=== PATIENT | female | born 1955 | race Caucasian/White ===

== ENCOUNTER 2018-06-11 13:39 | Inpatient (IN) | payer MEDICARE, OTHER ==
[2018-06-11] MEDS ORDERED: ACETAMINOPHEN TAB 500 MG TAB PO STA (14:09)
[2018-06-11] MEDS ORDERED: IPRATROPIUM-ALBUTEROL 3 ML NEB INHALATION STA (14:10)
--- NOTE | 2018-06-11 14:13 | ED ---
General Adult HPI - General Chief complaint: Shortness of Breath Stated complaint: Sob Time Seen by Provider: 06/11/18 13:57 Source: patient, EMS, RN notes reviewed Mode of arrival: EMS Limitations: no limitations - History of Present Illness Initial comments: Patient is a pleasant 62-year-old female presenting to the emergency Department with cough and difficulty breathing. Patient states symptoms have progressed over the past couple of days. Occasional clear sputum. Patient has noticed fevers. No chest pain. Patient has been fatigued. - Related Data Home Medications Medication Instructions Recorded Confirmed Albuterol Inhaler [Ventolin Hfa 2 puff INHALATION RT-Q6H PRN 06/11/18 06/11/18 Inhaler] Doxycycline [Vibramycin] 100 mg PO BID 06/11/18 06/11/18 Fluticasone Nasal [place] [Flonase 2 spr EA NOSTRIL DAILY 06/11/18 06/11/18 Nasal [place]] Glycopyrrolate/Formoterol Fum 2 puff INHALATION RT-BID 06/11/18 06/11/18 [Bevespi Aerosphere Inhaler] HYDROcodone/APAP 10-325MG [[place] 1 tab PO BID PRN 06/11/18 06/11/18 10-325] Allergies Allergy/AdvReac Type Severity Reaction Status Date / Time diphenhydramine Allergy Unknown Verified 06/11/18 14:31 [From Benadryl] seafood Allergy Itching Uncoded 06/11/18 13:55 Review of Systems ROS Statement: Those systems with pertinent positive or pertinent negative responses have been documented in the HPI. ROS Other: All systems not noted in ROS Statement are negative. Constitutional: Reports: fever, chills Eyes: Denies: eye pain ENT: Denies: ear pain Respiratory: Reports: cough, dyspnea Cardiovascular: Denies: chest pain Endocrine: Reports: fatigue Gastrointestinal: Denies: abdominal pain Genitourinary: Denies: dysuria Musculoskeletal: Denies: back pain Skin: Denies: rash Neurological: Denies: weakness Past Medical History Past Medical History: COPD, Diabetes Mellitus, GERD/Reflux, Mitral Valve Prolapse (MVP) History of Any Multi-Drug Resistant Organisms: None Reported Past Surgical History: Section, Hysterectomy, Joint Replacement Additional Past Surgical History / Comment(s): past hx tracheostomy, 4 eye surgery for cancer from [place]. PAIN CLINIC PROCEDURES Past Anesthesia/Blood Transfusion Reactions: Previous Problems w/ Anesthesia, Postoperative Nausea & Vomiting (PONV) Additional Past Anesthesia/Blood Transfusion Reaction / Comment(s): anger issue post sedation Past Psychological History: Depression Smoking Status: Former smoker Past Alcohol Use History: None Reported Past Drug Use History: None Reported General Exam Limitations: no limitations General appearance: alert Head exam: Present: atraumatic Eye exam: Present: normal appearance, PERRL ENT exam: Present: normal oropharynx Neck exam: Present: normal inspection Respiratory exam: Present: respiratory distress, decreased breath sounds Cardiovascular Exam: Present: tachycardia GI/Abdominal exam: Present: soft. Absent: tenderness Extremities exam: Present: normal inspection. Absent: pedal edema, calf tenderness Neurological exam: Present: alert Psychiatric exam: Present: normal affect, normal mood Skin exam: Present: normal color Course Vital Signs 06/11/18 06/11/18 06/11/18 13:49 14:58 15:10 Temperature 102.1 F H Pulse Rate 126 H 116 H 114 H Respiratory 36 H 28 H Rate Blood Pressure 140/89 154/80 O2 Sat by Pulse 95 97 Oximetry 06/11/18 06/11/18 15:28 15:34 Temperature Pulse Rate 114 H 109 H Respiratory 30 H Rate Blood Pressure 122/74 O2 Sat by Pulse 96 Oximetry - Reevaluation(s) Reevaluation #1: 06/11/18 15:19 IV fluid bolus of 30 mL/kg calculated with ideal body weight at 5 foot 3 of 52.2 kg, equals 1566 mL. 06/11/18 16:07 Patient is positive for influenza. Patient also has COPD exacerbation and there is some concern for possible sepsis. This is diagnosed at 1600. Blood culture and lactic acid have been ordered. IV antibiotic's will be ordered. Fluid bolus has been ordered. 06/11/18 16:09 Symptoms have been greater than 48 hours and therefore patient is not a candidate for Tamiflu. 06/11/18 16:12 Case was discussed with Dr. De La Vega, who will admit covering for hospital call. EKG Findings - EKG Comments: EKG Findings:: Sinus tachycardia 118. NV 146. QRS 90. QT 320. QTc 440. Normal axis. Q wave in lead III. No acute ST change. Procedures - Sepsis Sepsis Focused Exam #1 Time Sepsis Criteria Met: 16:00 Sepsis Focused Exam Date: 06/11/18 Sepsis Focused Exam Time: 16:08 Sepsis Focused Exam Complete: Yes Vital Signs & RN Notes Reviewed: Yes Capillary Refill: < 2 Seconds: Fingers, Toes Peripheral Pulses: Normal: Radial (R), Radial (L) Skin Color: Normal for Patient Respiratory Exam: decreased breath sounds Cardiovascular Exam: regular rate, normal rhythm Medical Decision Making - Lab Data Result diagrams: 06/11/18 14:28 06/11/18 14:28 Lab Results 06/11/18 06/11/18 06/11/18 Range/Units 14:28 14:28 14:28 WBC 3.3 L (3.8-10.6) k/uL RBC 3.60 L (3.80-5.40) m/uL Hgb 11.0 L (11.4-16.0) gm/dL Hct 33.0 L (34.0-46.0) % MCV 91.5 (80.0-100.0) fL MCH 30.5 (25.0-35.0) pg MCHC 33.3 (31.0-37.0) g/dL RDW 14.3 (11.5-15.5) % Neutrophils % Not Reportable Lymphocytes % Not Reportable Monocytes % Not Reportable Eosinophils % Not Reportable Basophils % Not Reportable Neutrophils # Not Reportable Lymphocytes # Not Reportable Monocytes # Not Reportable Eosinophils # Not Reportable Basophils # Not Reportable PT (9.0-12.0) sec INR (<1.2) APTT (22.0-30.0) sec Sodium 132 L (137-145) mmol/L Potassium 3.7 (3.5-5.1) mmol/L Chloride 93 L (98-107) mmol/L Carbon Dioxide 27 (22-30) mmol/L Anion Gap 12 mmol/L BUN 13 (7-17) mg/dL Creatinine 0.47 L (0.52-1.04) mg/dL Est GFR (CKD-EPI)AfAm >90 (>60 ml/min/1.73 sqM) Est GFR (CKD-EPI)NonAf >90 (>60 ml/min/1.73 sqM) Glucose 122 H (74-99) mg/dL Plasma Lactic Acid Matt 7.6 H* (0.7-2.0) mmol/L Calcium 9.4 (8.4-10.2) mg/dL Total Bilirubin 0.9 (0.2-1.3) mg/dL AST 104 H (14-36) U/L ALT 32 (9-52) U/L Alkaline Phosphatase 123 (38-126) U/L Total Protein 6.5 (6.3-8.2) g/dL Albumin 3.4 L (3.5-5.0) g/dL Influenza Type A RNA (Not Detectd) Influenza Type B (PCR) (Not Detectd) 06/11/18 06/11/18 Range/Units 14:28 14:41 WBC (3.8-10.6) k/uL RBC (3.80-5.40) m/uL Hgb (11.4-16.0) gm/dL Hct (34.0-46.0) % MCV (80.0-100.0) fL MCH (25.0-35.0) pg MCHC (31.0-37.0) g/dL RDW (11.5-15.5) % Neutrophils % Lymphocytes % Monocytes % Eosinophils % Basophils % Neutrophils # Lymphocytes # Monocytes # Eosinophils # Basophils # PT 11.6 (9.0-12.0) sec INR 1.1 (<1.2) APTT 22.8 (22.0-30.0) sec Sodium (137-145) mmol/L Potassium (3.5-5.1) mmol/L Chloride (98-107) mmol/L Carbon Dioxide (22-30) mmol/L Anion Gap mmol/L BUN (7-17) mg/dL Creatinine (0.52-1.04) mg/dL Est GFR (CKD-EPI)AfAm (>60 ml/min/1.73 sqM) Est GFR (CKD-EPI)NonAf (>60 ml/min/1.73 sqM) Glucose (74-99) mg/dL Plasma Lactic Acid Matt (0.7-2.0) mmol/L Calcium (8.4-10.2) mg/dL Total Bilirubin (0.2-1.3) mg/dL AST (14-36) U/L ALT (9-52) U/L Alkaline Phosphatase (38-126) U/L Total Protein (6.3-8.2) g/dL Albumin (3.5-5.0) g/dL Influenza Type A RNA Detected H (Not Detectd) Influenza Type B (PCR) Not Detected (Not Detectd) - Radiology Data Radiology results: image reviewed (Chest x-ray shows some enlargement of the hilum that could be related to adenopathy, mass or pulmonary hypertension. Central peribronchial interstitial prominence is present but could be related to bronchitis or atypical pneumonia) Critical Care Time Critical Care Time: Yes Total Critical Care Time: 33 Disposition Clinical Impression: Acute exacerbation of chronic obstructive airways disease, Influenza, Sepsis Disposition: ADMITTED IP TO THIS HOSP Is patient prescribed a controlled substance at d/c from ED?: No Referrals: None,Stated [Primary Care Provider] - 1-2 days Decision Time: 16:08
[2018-06-11] MEDS ORDERED: SODIUM CHLORIDE 0.9% 500 ML 500 ML IV SCH (14:15)
[2018-06-11 15:03] LABS: ALT 32 U/L (9-52); AST 104 U/L (14-36); Albumin 3.4 g/dL (3.5-5.0); Alkaline Phosphatase 123 U/L (38-126); Anion Gap 12 mmol/L; Blood Urea Nitrogen 13 mg/dL (7-17); Calcium 9.4 mg/dL (8.4-10.2); Carbon Dioxide 27 mmol/L (22-30); Chloride 93 mmol/L (98-107); Glucose 122 mg/dL (74-99); Potassium 3.7 mmol/L (3.5-5.1); Sodium 132 mmol/L (137-145); Total Bilirubin 0.9 mg/dL (0.2-1.3); Total Protein 6.5 g/dL (6.3-8.2)
[2018-06-11 15:05] LABS: INR 1.1 (<1.2); Partial Thromboplastin Time 22.8 sec (22.0-30.0); Prothrombin Time 11.6 sec (9.0-12.0)
[2018-06-11 15:14] LABS: MCH 30.5 pg (25.0-35.0); MCHC 33.3 g/dL (31.0-37.0); MCV 91.5 fL (80.0-100.0); Mean Platelet Volume 8.5; RDW 14.3 % (11.5-15.5)
[2018-06-11] MEDS ORDERED: SODIUM CHLORIDE 0.9% 500 ML 500 ML IV STA (15:19)
[2018-06-11] MEDS ORDERED: SODIUM CHLORIDE 0.9% 1,000 ML IV STA (15:19)
--- NOTE | 2018-06-11 15:45 | XR ---
EXAMINATION TYPE: XR chest 2V DATE OF EXAM: 06/11/2018 COMPARISON: NONE HISTORY: Shortness of breath and diarrhea. TECHNIQUE: Frontal and lateral views of the chest are obtained. FINDINGS: There is no focal air space opacity, pleural effusion, or pneumothorax seen. There is bila teral enlargement of the [place]. Cardiomediastinal silhouette is also enlarged. Central interstitial pr ominence is noted. The osseous structures are intact. Cholecystectomy clips are noted. IMPRESSION: 1. Enlargement of the [place] that could relate to adenopathy, mass or pulmonary arterial as enlargement suggesting pulmonary hypertension. 2. No focal consolidation however Central peribronchial interstitial prominence is seen and could rel ate to bronchitis or atypical pneumonitis.
[2018-06-11] MEDS ORDERED: IPRATROPIUM-ALBUTEROL 3 ML NEB INHALATION PRN (16:09)
[2018-06-11] MEDS ORDERED: methylPREDNISolone SOD SUCCI 125 MG/2 ML VIAL IV STA (16:09)
[2018-06-11] MEDS ORDERED: cefTRIAXone IN SWFI 1,000 MG/10 ML SYRINGE IVP STA (16:13)
[2018-06-11 16:42] LABS: Eosinophils # (M) 0.03 k/uL (0-0.7)
[2018-06-11 16:43] LABS: Poikilocytosis (M) Present; Polychromasia Present
[2018-06-11 16:44] LABS: Platelet Count 27 k/uL (150-450)
[2018-06-11] MEDS: SODIUM CHLORIDE 0.9% 1,000 ML IV SCH (16:51)
[2018-06-11] MEDS ORDERED: NICOTINE 21MG/24HR PATCH TRANSDERM STA (17:54)
--- NOTE | 2018-06-11 17:54 | P.HPIM ---
History of Present Illness H&P Date: 06/11/18 Chief Complaint: Shortness of breath 62-year-old female with history of COPD not on home oxygen. Patient presented to the hospital due to progressive worsening of shortness of breath. She reports the symptoms started 3 weeks ago some coughing shortness of breath she saw her PCP 5 days ago for which she prescribed doxycycline. He gave her diagnosis of walking pneumonia. However over the past 5 days patient has been progressively getting worse with her shortness of breath started developing runny nose sore throat muscle aches and having fevers and chills over the wee kend she was not getting better. She was doing Mucinex to know much improvement. She doesn't use any home oxygen she has inhalers at home. She denies any history of intubation. She denies any frequent ER visits. She admits to continued smoking however she cut back over the past 3 weeks since she started coughing. Her cough has been getting worse over the past few days with productive of yellow sputum. She denies any recent traveling. Denies any diagnoses of cancer or any clots in the past. In the ED she was found to be tachycardic to Acutely hypoxic requiring high flow oxygen 15 L Ventimask, lactic acid was elevated at 7.6, she also met sepsis criteria due to tachycardia and low white count, she tested positive for the flu. Patient also reporting diarrhea 4-6 times over the past 3 weeks however today she had only one bout of diarrhea denies any nausea vomiting or abdominal pain. 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 At baseline patient uses a walker and sometimes a cane for ambulation. Review of Systems Pertinent positives as noted in HPI. All other systems were reviewed and are negative Past Medical History Past Medical History: COPD, Diabetes Mellitus, GERD/Reflux, Mitral Valve Prolapse (MVP) History of Any Multi-Drug Resistant Organisms: None Reported Past Surgical History: Section, Hysterectomy, Joint Replacement Additional Past Surgical History / Comment(s): past hx tracheostomy, 4 eye surgery for cancer from [place]. PAIN CLINIC PROCEDURES Past Anesthesia/Blood Transfusion Reactions: Previous Problems w/ Anesthesia, Postoperative Nausea & Vomiting (PONV) Additional Past Anesthesia/Blood Transfusion Reaction / Comment(s): anger issue post sedation Past Psychological History: Depression Smoking Status: Former smoker Past Alcohol Use History: None Reported Past Drug Use History: None Reported Medications and Allergies Home Medications Medication Instructions Recorded Confirmed Type Albuterol Inhaler [Ventolin Hfa 2 puff INHALATION RT-Q6H PRN 06/11/18 06/11/18 History Inhaler] Doxycycline [Vibramycin] 100 mg PO BID 06/11/18 06/11/18 History Fluticasone Nasal [place] [Flonase 2 spr EA NOSTRIL DAILY 06/11/18 06/11/18 History Nasal [place]] Glycopyrrolate/Formoterol Fum 2 puff INHALATION RT-BID 06/11/18 06/11/18 History [Bevespi Aerosphere Inhaler] HYDROcodone/APAP 10-325MG [[place] 1 tab PO BID PRN 06/11/18 06/11/18 History 10-325] Allergies Allergy/AdvReac Type Severity Reaction Status Date / Time diphenhydramine Allergy Unknown Verified 06/11/18 14:31 [From Benadryl] seafood Allergy Itching Uncoded 06/11/18 13:55 Physical Exam Vitals: Vital Signs Temp Pulse Resp BP Pulse Ox 06/11/18 15:34 109 H 30 H 122/74 96 06/11/18 15:28 114 H 06/11/18 15:10 114 H 06/11/18 14:58 116 H 28 H 154/80 97 06/11/18 13:49 102.1 F H 126 H 36 H 140/89 95 Intake and Output 06/11/18 06/11/18 06/11/18 06:59 14:59 22:59 Other: Weight 90.718 kg Constitutional: Mild distress, conversant, pleasant, patient getting short of breath unable to finish full sentences Eyes: Anicteric sclerae, moist conjunctiva, no lid-lag Pupils equal round reactive to light ENMT: NC/AT Oropharynx clear, no erythema, exudates Neck: Supple, FROM, no masses, or JVD No carotid bruits No thyromegaly Lungs: Good breath sounds bilaterally no wheezing prolonged expiratory phase Clear to percussion Normal respiratory effort, no accessory muscle use Cardiovascular: Heart tachycardia regular No murmurs, gallops, or rubs No peripheral edema Abdominal: Soft Nontender, no guarding, rebound or rigidity Abdomen moving with respiration Normoactive bowel sounds No hepatomegaly, No splenomegaly No palpable mass No abdominal wall hernia noted Skin: Normal temperature, tone, texture, turgor No induration No subcutaneous nodules No rash, lesions No ulcers Extremities: Capillary refill is immediate No digital cyanosis No clubbing Pedal pulses intact and symmetrical Radial pulses intact and symmetrical No calf tenderness Psychiatric: Alert and oriented to person, place and time Appropriate affect fair judgment Neuro Muscles Strength 5/5 in all 4 extremities Sensation to light touch grossly present throughout Cranial nerves II-XII grossly intact No focal sensory deficits Lymphatics: no palpable cervical or supraclavicular , or inguinal lymph nodes Results CBC & Chem 7: 06/11/18 14:28 06/11/18 14:28 Labs: Abnormal Lab Results - Last 24 Hours (Table) 06/11/18 06/11/18 06/11/18 Range/Units 14:28 14:28 14:28 WBC 3.3 L (3.8-10.6) k/uL RBC 3.60 L (3.80-5.40) m/uL Hgb 11.0 L (11.4-16.0) gm/dL Hct 33.0 L (34.0-46.0) % Sodium 132 L (137-145) mmol/L Chloride 93 L (98-107) mmol/L Creatinine 0.47 L (0.52-1.04) mg/dL Glucose 122 H (74-99) mg/dL Plasma Lactic Acid Matt 7.6 H* (0.7-2.0) mmol/L AST 104 H (14-36) U/L Albumin 3.4 L (3.5-5.0) g/dL Influenza Type A RNA (Not Detectd) 06/11/18 Range/Units 14:41 WBC (3.8-10.6) k/uL RBC (3.80-5.40) m/uL Hgb (11.4-16.0) gm/dL Hct (34.0-46.0) % Sodium (137-145) mmol/L Chloride (98-107) mmol/L Creatinine (0.52-1.04) mg/dL Glucose (74-99) mg/dL Plasma Lactic Acid Matt (0.7-2.0) mmol/L AST (14-36) U/L Albumin (3.5-5.0) g/dL Influenza Type A RNA Detected H (Not Detectd) Assessment and Plan Assessment: 62 year old female with history of COPD not on home oxygen, admitted as inpatient with anticipated length of stay >48 hours. for acute hypoxic acute COPD exacerbation and influenza A. Plan: Acute hypoxic respiratory failure secondary to acute COPD exacerbation Sepsis (tachycardia, leukopenia, tachypnea) secondary to viral pneumonitis nfluenza A Lactic acidosis Tobacco smoking COPD pathway ventral IV steroids, DuoNeb's when necessary Home inhalers Counseled to quit smoking, dictating replacement therapy offered IV antibiotics on azithromycin and Rocephin Chest x-ray reviewed IV fluid hydration, follow-up lactic acid DVT PPX, heparin sc tid home oxygen assessment prior to discharge patient interested in PCP referral upon discharge Surrogate decision-maker: patient sister CODE STATUS:full code Discussed with: Patient, ER, RN Anticipated discharge: 48-[address]: home A total of 60 minutes was spent on the care of this complex patient more than 50% of the time was spent in counseling and care coordination. Sepsis - Sepsis Sepsis Focused Exam #1 Sepsis Focused Exam Date: 06/11/18 Sepsis Focused Exam Time: 16:30 Capillary Refill: < 2 Seconds: Fingers, Toes Peripheral Pulses: Normal: Radial (R), Radial (L), Dorsalis Pedis (R), Dorsalis Pedis (L) Skin Color: Normal for Patient Respiratory Exam: normal lung sounds Cardiovascular Exam: tachycardia, normal heart sounds
[2018-06-11] MEDS: FORMOTEROL FUMARATE 20 MCG/2 ML NEBU INHALATION SCH (18:45)
[2018-06-11] MEDS: IPRATROPIUM-ALBUTEROL 3 ML NEB INHALATION SCH (18:46)
[2018-06-11 19:09] LABS: Appearance,Urine Cloudy (Clear); Bilirubin,Urine Negative (Negative); Blood,Urine Negative (Negative); Budding Yeast,Urine Few /hpf; Color,Urine Yellow; Glucose,Urine (UA) Negative (Negative); Hyaline Casts,Urine 16 /lpf (0-2); Ketones,Urine Negative (Negative); Leukocyte Esterase,Urine Negative (Negative); Mucus,Urine Rare /hpf; Nitrite,Urine Negative (Negative); Protein,Urine Trace (Negative); RBC,Urine 3 /hpf (0-5); Specific Gravity,Urine 1.009 (1.001-1.035); Squamous Epithelial Cell,Urine 19 /hpf (0-4); Urobilinogen,Urine <2.0 mg/dL (<2.0); WBC,Urine 2 /hpf (0-5)
[2018-06-11] MEDS: AZITHROMYCIN 500 MG in SODIUM CHLORIDE 0.9% 250 ML IVPB SCH (19:13)
[2018-06-11 21:24] LABS: Glucose,Whole Blood 184 mg/dL (75-99)
[2018-06-11] MEDS: OSELTAMIVIR 75 MG CAP PO SCH (22:05)
[2018-06-11] MEDS: methylPREDNISolone SOD SUCCI 125 MG/2 ML VIAL IV SCH (23:54)
[2018-06-11] MEDS: HEPARIN SODIUM,PORCINE 5,000 UNIT/ML 1 ML VIAL SQ SCH (23:54)
[2018-06-12] MEDS: methylPREDNISolone SOD SUCCI 125 MG/2 ML VIAL IV SCH ×4 (06:06→23:33)
[2018-06-12] MEDS: SODIUM CHLORIDE 0.9% 1,000 ML IV SCH ×2 (06:06→12:25)
[2018-06-12 06:18] LABS: Glucose,Whole Blood 145 mg/dL (75-99)
[2018-06-12] MEDS ORDERED: SODIUM CHLORIDE 0.9% 1,000 ML IV ONE (06:41)
[2018-06-12 06:56] LABS: HCT 32.3 % (34.0-46.0); HGB 10.5 gm/dL (11.4-16.0); MCH 30.7 pg (25.0-35.0); MCHC 32.5 g/dL (31.0-37.0); MCV 94.3 fL (80.0-100.0); Mean Platelet Volume 7.5; RBC 3.43 m/uL (3.80-5.40); RDW 14.4 % (11.5-15.5)
[2018-06-12 07:13] LABS: Platelet Count 27 k/uL (150-450)
[2018-06-12 07:21] LABS: Anion Gap 9 mmol/L; Blood Urea Nitrogen 11 mg/dL (7-17); Calcium 8.9 mg/dL (8.4-10.2); Carbon Dioxide 29 mmol/L (22-30); Chloride 98 mmol/L (98-107); Glucose 132 mg/dL (74-99); Sodium 136 mmol/L (137-145)
[2018-06-12 07:22] LABS: Potassium 4.1 mmol/L (3.5-5.1)
[2018-06-12] MEDS: HEPARIN SODIUM,PORCINE 5,000 UNIT/ML 1 ML VIAL SQ SCH (07:49)
[2018-06-12] MEDS: OSELTAMIVIR 75 MG CAP PO SCH ×2 (07:50→21:16)
[2018-06-12] MEDS: INSULIN ASPART (NovoLOG) 100 UNIT/ML VIAL SQ SCH ×3 (07:52→18:12)
[2018-06-12 08:38] LABS: Band Neutrophils % 1 %; Myelocytes % 1 %; Nucleated Red Blood Cells 2 /100 WBC (0-0); Total Cells Counted 200
[2018-06-12 08:39] LABS: Myelocytes # (M) 0.04 k/uL (0); WBC 4.4 k/uL (3.8-10.6)
[2018-06-12 09:29] LABS: Band Neutrophils % 5 %; Blast Cells # (M) 0.22 k/uL (0); Lymphocytes # (M) 1.21 k/uL (1.0-4.8); Metamyelocytes # (M) 0.06 k/uL (0); Metamyelocytes % 2 %; Monocytes # (M) 0.19 k/uL (0-1.0); Myelocytes # (M) 0.09 k/uL (0); Myelocytes % 3 %; Neutrophils % (M) 39 %; Nucleated Red Blood Cells 2 /100 WBC (0-0); Total Cells Counted 200; WBC 3.1 k/uL (3.8-10.6)
[2018-06-12] MEDS: FORMOTEROL FUMARATE 20 MCG/2 ML NEBU INHALATION SCH ×2 (09:35→20:26)
[2018-06-12] MEDS: IPRATROPIUM-ALBUTEROL 3 ML NEB INHALATION SCH ×4 (09:35→20:26)
[2018-06-12] MEDS ORDERED: RX INFO: IV CONTRAST WAS GIVEN 1 EACH MISC MISCELLANE PRN (09:39)
[2018-06-12 10:18] LABS: Rouleaux Present
[2018-06-12 11:00] LABS: Neutrophils % (M) 62 %
[2018-06-12 11:01] LABS: Blast Cells # (M) 0.26 k/uL (0); Lymphocytes # (M) 1.19 k/uL (1.0-4.8); Metamyelocytes # (M) 0.04 k/uL (0); Metamyelocytes % 1 %; Monocytes # (M) 0.09 k/uL (0-1.0); Neutrophils # (M) 2.73 k/uL (1.3-7.7)
--- NOTE | 2018-06-12 11:26 | CT ---
EXAMINATION TYPE: CT chest w con DATE OF EXAM: 06/12/2018 COMPARISON: Chest x-ray from yesterday HISTORY: Hilar enlargement. Abnormal x-ray. CT DLP: 536.2 mGycm. Automated Exposure Control for Dose Reduction was Utilized. TECHNIQUE: CT scan of the thorax is performed following with IV Contrast, patient injected with 100 mL of Isovue 300. FINDINGS: LUNGS: There is significant respiratory motion artifact degradation making evaluation suboptimal part icularly for nodularity. There is linear scarring and/or atelectasis in the lingula axial image 30. N o suspicious masses are present, no obvious masses at level of hilar region bilaterally are seen. No pleural effusion or pneumothorax is noted. No suspicious consolidation is present. MEDIASTINUM: There are no greater than 1 cm hilar or mediastinal lymph nodes. No pericardial effusi on is seen. Main pulmonary artery measures 3.5 cm at bifurcation image 22. Enlarged right and left pu lmonary arteries are present. Adjacent ascending aorta measures 3.4 cm in diameter. Mild cardiomegaly is present. There is no significant pericardial effusion. Coronary artery calcification is identifie d which is noted marker for underlying coronary artery disease. OTHER: Visualized liver is markedly hypodense consistent with diffuse fatty infiltration. IMPRESSION: Enlarged pulmonary arteries, CT findings consistent with underlying pulmonary artery hype rtension. Mild cardiomegaly without suspicious acute infiltrate. No suspicious masses or adenopathy n oted. Slightly suboptimal study noted.
[2018-06-12] MEDS ORDERED: ALBUTEROL NEBULIZED 2.5 MG/3 ML INHALATION PRN (11:33)
[2018-06-12 11:42] LABS: Glucose,Whole Blood 128 mg/dL (75-99)
--- NOTE | 2018-06-12 11:42 | P.PN ---
Subjective Progress Note Date: 06/12/18 Principal diagnosis: shortness of breath Patient is a 62-year-old female with past medical history of COPD on inhalers at requiring home O2, GERD, and mitral valve prolapse who presented to the ER with complaints of shortness of breath. In the ER she underwent an exten sive evaluation. Initial chest x-ray showed hilar enlargement. Initial laboratory analysis showed leukopenia, anemia, and thrombocytopenia. She was also found to have a sodium of 132, lactic acid of 7.9, mildly elevated AST of 104. Urinalysis is negative. She was positive for influenza A. She was started on IV fluids, steroids, bronchodilators Rocephin, and Zithromax. She was admitted to the selective care unit for further monitoring. Her lactic acid slowly was improving. Her breathing was getting slightly better. Her CBC differential had be reviewed manually and was consistent with increased blast cells. She was also found to be severely thrombocytopenic. Patient seen and examined at bedside. She states she is feeling slightly better than yesterday. Her breathing is about the same. She denies any overt wheezing. She still coughing productive of yellow sputum. She denies any nausea or vomiting. She is not having any chest pain. She did have an episode of blood on wiping this morning, small amount of blood in stool. She denies any acid reflux. Further investigation history shows that she sees a PCP and does take inhalers at home but has not been on oxygen therapy. 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 She states she then was seen at [facility] approximately 10 years ago and had 4 lymph nodes removed from her neck. She denies any other history of cancer. She does have a history of significant tobacco abuse and her last cigarette was approximately 3 weeks ago when she began feeling ill. She reports that she has had low appetite and has not been eating secondary to her PCP telling her she needed to lose weight. She states she eats very little and when she is eating she is having early satiety at this point in time. She believes her last blood work was approximately one year ago with her PCP. She denies any history of thrombocytopenia. Objective - Vital Signs Vital signs: Vital Signs Temp 99.0 F 06/12/18 07:45 Pulse 88 06/12/18 09:35 Resp 20 06/12/18 08:00 BP 134/79 06/12/18 07:45 Pulse Ox 91 L 06/12/18 07:45 Intake & Output 06/11/18 06/12/18 06/12/18 18:59 06:59 18:59 Intake Total 700 120 Balance 700 120 Weight 90.718 kg 114.2 kg Intake: IV 700 Sodium Chloride 0.9% 1, 700 000 ml @ 100 mls/hr IV . Q10H [facility] Rx#:[id number] Oral 120 Other: Voiding Method Toilet Toilet Bedside Commode Bedside Commode # Voids 0 # Bowel Movements 1 - Exam General: ill appearing, mild distress, appears older than stated age, obese Derm: warm, dry Head: atraumatic, normocephalic, symmetric Eyes: EOMI, no lid lag, anicteric sclera Mouth: no lip lesion, mucus membranes moist Cardiovascular: S1S2 tachycardic, no murmur, positive posterior tibial pulse bilateral, Lungs: Decreased breath sounds bilateral bases, no rhonchi, no rales , no accessory muscle use Abdominal: soft, nontender to palpation, no guarding, no appreciable organomegaly Ext: no gross muscle atrophy, trace edema, no contractures Neuro: CN II-XI grossly intact, no focal neuro deficits Psych: Alert, oriented, appropriate affect - Labs CBC & Chem 7: 06/12/18 06:19 06/12/18 06:19 Labs: Abnormal Lab Results - Last 24 Hours (Table) 06/11/18 06/11/18 06/11/18 Range/Units 14:28 14:28 14:28 RBC 3.60 L (3.80-5.40) m/uL Hgb 11.0 L (11.4-16.0) gm/dL Hct 33.0 L (34.0-46.0) % Plt Count (150-450) k/uL Sodium 132 L (137-145) mmol/L Chloride 93 L (98-107) mmol/L Creatinine 0.47 L (0.52-1.04) mg/dL Glucose 122 H (74-99) mg/dL POC Glucose (mg/dL) (75-99) mg/dL Plasma Lactic Acid Matt 7.6 H* (0.7-2.0) mmol/L AST 104 H (14-36) U/L Albumin 3.4 L (3.5-5.0) g/dL Urine Appearance (Clear) Urine Protein (Negative) Ur Squamous Epith Cells (0-4) /hpf Hyaline Casts (0-2) /lpf Urine Mucus (None) /hpf Urine Yeast (Budding) (None) /hpf Influenza Type A RNA (Not Detectd) 06/11/18 06/11/18 06/11/18 Range/Units 14:41 17:46 18:12 RBC (3.80-5.40) m/uL Hgb (11.4-16.0) gm/dL Hct (34.0-46.0) % Plt Count (150-450) k/uL Sodium (137-145) mmol/L Chloride (98-107) mmol/L Creatinine (0.52-1.04) mg/dL Glucose (74-99) mg/dL POC Glucose (mg/dL) (75-99) mg/dL Plasma Lactic Acid Matt 7.9 H* (0.7-2.0) mmol/L AST (14-36) U/L Albumin (3.5-5.0) g/dL Urine Appearance Cloudy H (Clear) Urine Protein Trace H (Negative) Ur Squamous Epith Cells 19 H (0-4) /hpf Hyaline Casts 16 H (0-2) /lpf Urine Mucus Rare H (None) /hpf Urine Yeast (Budding) Few H (None) /hpf Influenza Type A RNA Detected H (Not Detectd) 06/11/18 06/12/18 06/12/18 Range/Units 21:22 02:14 06:16 RBC (3.80-5.40) m/uL Hgb (11.4-16.0) gm/dL Hct (34.0-46.0) % Plt Count (150-450) k/uL Sodium (137-145) mmol/L Chloride (98-107) mmol/L Creatinine (0.52-1.04) mg/dL Glucose (74-99) mg/dL POC Glucose (mg/dL) 184 H 145 H (75-99) mg/dL Plasma Lactic Acid Matt 7.3 H* (0.7-2.0) mmol/L AST (14-36) U/L Albumin (3.5-5.0) g/dL Urine Appearance (Clear) Urine Protein (Negative) Ur Squamous Epith Cells (0-4) /hpf Hyaline Casts (0-2) /lpf Urine Mucus (None) /hpf Urine Yeast (Budding) (None) /hpf Influenza Type A RNA (Not Detectd) 06/12/18 06/12/18 06/12/18 Range/Units 06:19 06:19 06:19 RBC 3.43 L (3.80-5.40) m/uL Hgb 10.5 L (11.4-16.0) gm/dL Hct 32.3 L (34.0-46.0) % Plt Count 27 L (150-450) k/uL Sodium 136 L (137-145) mmol/L Chloride (98-107) mmol/L Creatinine 0.42 L (0.52-1.04) mg/dL Glucose 132 H (74-99) mg/dL POC Glucose (mg/dL) (75-99) mg/dL Plasma Lactic Acid Matt 6.7 H* (0.7-2.0) mmol/L AST (14-36) U/L Albumin (3.5-5.0) g/dL Urine Appearance (Clear) Urine Protein (Negative) Ur Squamous Epith Cells (0-4) /hpf Hyaline Casts (0-2) /lpf Urine Mucus (None) /hpf Urine Yeast (Budding) (None) /hpf Influenza Type A RNA (Not Detectd) Microbiology - Last 24 Hours (Table) 06/11/18 17:46 Urine Culture - Preliminary Urine,Voided Assessment and Plan Assessment: Pancytopenia - May be related to Influenza, obtain prior blood work from PCP - consult oncology- D/w Dr. Olivier - check Fe, B 12 and folate - consider direct christi? - repeat CBC at noon with possible blood in stool, if HgB lower then plt X 1 Influenza A with acute exacerbation of COPD -continue Zithromax for acute exacerbation of COPD -Continue Tamiflu day #2 -We will check CT chest with contrast as well as echocardiogram to further analyze her hilar enlargement. Chest x-ray reviewed by myself shows hilar enlargement on the left greater than right without any definitive mass noted. -Consult pulmonary -Continue with steroids, bronchodilators- peroformist, scheduled duonebs, prn albuterol - pulmonary hygiene Persistent lactic acid elevation - Co2 normal on lytes - No alcohol use per patient, has had decreased oral intake - repeat at noon with labs Received call from lab BC +, Gram stain pending - continue with rocephin and zithromax - await gram stain then reculture and determine appropriate ABX. Acute hypoxic respiratory failure - treatment as above for COPD - wean O2 as able. Morbid obesity - structured outpatient weight loss Tobacco abuse - cessation - denies needing nicotine replacement at this time GERD - PPI HLD - not on medication at home DVT prophylaxis: SCDs Discussed with: Patient, nursing, Dr. Olivier Anticipated discharge: 3-[address]: home with home health A total of [50] minutes was spent on the care of this complex patient more than 50% of the time was spent in counseling and care coordination.
[2018-06-12] MEDS: PANTOPRAZOLE 40 MG TABLET PO SCH (12:25)
[2018-06-12 15:20] LABS: HCT 31.5 % (34.0-46.0); HGB 10.6 gm/dL (11.4-16.0); MCH 32.3 pg (25.0-35.0); MCHC 33.6 g/dL (31.0-37.0); MCV 96.2 fL (80.0-100.0); Mean Platelet Volume 7.6; RBC 3.27 m/uL (3.80-5.40); RDW 14.9 % (11.5-15.5); WBC 3.5 k/uL (3.8-10.6)
[2018-06-12 15:22] LABS: Platelet Count 32 k/uL (150-450)
--- NOTE | 2018-06-12 15:29 | ECHOF ---
Referral Reason:dyspnea, pulmonary hypertension MEASUREMENTS -------- HEIGHT: 160.0 cm WEIGHT: 113.9 kg BP: RVIDd: 3.3 cm (< 3.3) IVSd: 1.3 cm (0.6 - 1.1) LVIDd: 3.7 cm (3.9 - 5.3) LVPWd: 1.4 cm (0.6 - 1.1) IVSs: 1.6 cm LVIDs: 1.5 cm LVPWs: 1.5 cm Ao Diam: 3.3 cm (2.0 - 3.7) AV Cusp: 1.7 cm (1.5 - 2.6) LA Diam: 4.2 cm (2.7 - 3.8) MV E Kenneth: 0.83 m/s MV DecT: 101 ms MV A Kenneth: 1.07 m/s MV E/A Ratio: 0.77 RAP: 5.00 mmHg RVSP: 26.25 mmHg FINDINGS -------- Resting tachycardia (HR>100bpm). This was a technically difficult study with suboptimal views. The left ventricular size is normal. There is mild concentric left ventricular hypertrophy. Overa ll left ventricular systolic function is normal with, an EF between 60 - 65 %. The right ventricle is mildly enlarged. The left atrial size is normal. The right atrial size is normal. Lumason used The aortic valve was not well visualized. The mitral valve was not well visualized. There is trace mitral regurgitation. The tricuspid valve was not well visualized. Mild tricuspid regurgitation present. The right vent ricular systolic pressure, as measured by Doppler, is 26.25mmHg. The aortic root size is normal. IVC Not well visulized. There is no pericardial effusion. CONCLUSIONS -------- 1. Resting tachycardia (HR>100bpm). 2. This was a technically difficult study with suboptimal views. 3. The left ventricular size is normal. 4. There is mild concentric left ventricular hypertrophy. 5. Overall left ventricular systolic function is normal with, an EF between 60 - 65 %. 6. The right ventricle is mildly enlarged. 7. The left atrial size is normal. 8. The right atrial size is normal. 9. Lumason used 10. The aortic valve was not well visualized. 11. The mitral valve was not well visualized. 12. There is trace mitral regurgitation. 13. The tricuspid valve was not well visualized. 14. Mild tricuspid regurgitation present. 15. The right ventricular systolic pressure, as measured by Doppler, is 26.25mmHg. 16. The aortic root size is normal. 17. IVC Not well visulized. 18. There is no pericardial effusion. [employer]ALE: Janae Lozano RDCS
[2018-06-12 15:46] LABS: Monocytes # (M) 0.14 k/uL (0-1.0)
[2018-06-12] MEDS ORDERED: VANCOMYCIN IV PER PHARMACY 1 EACH MISC MISCELLANE PRN (16:28)
[2018-06-12 16:51] LABS: Glucose,Whole Blood 154 mg/dL (75-99)
[2018-06-12] MEDS: AZITHROMYCIN 500 MG in SODIUM CHLORIDE 0.9% 250 ML IVPB SCH (16:53)
[2018-06-12] MEDS: AZITHROMYCIN 500 MG TAB PO SCH (16:55)
--- NOTE | 2018-06-12 17:57 | P.CNPUL ---
History of Present Illness Consult date: 06/12/18 Requesting physician: Laverne Thomas Reason for consult: dyspnea, cough Chief complaint: Dyspnea, cough, fever History of present illness: This is 62-year-old white female patient of Dr. Elam in [place], was brought to the hospital by an ambulance to 2 week history of cough, difficulty breathing, intermittent fevers. Cough was occasionally productive, with production of clear and white sputum. Denied any chest pain, complained of increasing fatigue, and worsening shortness of breath. Denies any sick contacts. No nausea, vomiting. Did have significant diarrhea over the last several days, 5-6 episodes a day. Had decreased oral intake. Chest x-ray showed right hilar enlargement or could relate to adenopathy, mass or pulmonary arterial hypertension, no focal consolidation but there was central peribronchial interstitial prominence could suggest bronchitis or atypical pneumonitis. Blood work showed pancytopenia, white blood cell count of 3.1, hemoglobin of 11.0, platelet count was only 27, 7% blasts, INR was within normal limits at 1.1, sodium is 132, potassium is 3.7, chloride was 93, CO2 is 27, BUN was 13, creatinine is 0.47, lactic acid has been significantly elevated at 7.9, and has stayed elevated despite fluid resuscitation at 6.7, AST was 104, the rest of the LFTs were within normal limits, influenza screen was positive for influenza A. patient was started on Tamiflu, Zithromax and Rocephin, she was given vancomycin due to positive blood cultures. Blood culture Gram stain showed gram-positive cocci in chains. Echocardiogram has been ordered and is pending at this time. Chest CT showed enlarged pulmonary arteries, cardiomegaly without suspicious acute infiltrates, no suspicious masses or adenopathy. Medical history is significant for COPD, and patient states she supposed to have home oxygen, but due to some paperwork mixup she was not able to get home oxygen, and some inhalers include that of Bevespi, Ventolin and albuterol nebulized treatment. Patient denies any history of hypertension, denies history of diabetes. 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 Patient apparently had a tracheostomy at the time. Prior history of eye surgery. History of depression, patient is a current smoker, 40+-pack-year history of smoking, a pack a day, she quit when she started getting sick 2 weeks ago. Also gives a history of 4 nodules removed from her neck, is old healed scar above the old tracheostomy site. She is somewhat of a poor historian. During our evaluation patient no acute distress, she still on 5 L of oxygen and her pulse ox is around 91%. Lung sounds are diminished, with the minimal wheezing, and rhonchi patient has a loose congested cough. Review of Systems All systems: negative Constitutional: Reports malaise, Reports poor appetite, Reports weakness, Denies chills, Denies fever Eyes: denies blurred vision, denies pain Ears, nose, mouth and throat: Denies headache, Denies sore throat Cardiovascular: Denies chest pain, Denies shortness of breath Respiratory: Reports congestion, Reports cough with sputum, Reports dyspnea, Denies cough Gastrointestinal: Denies abdominal pain, Denies diarrhea, Denies nausea, Denies vomiting Genitourinary: Denies dysuria, Denies hematuria Musculoskeletal: Denies myalgias Integumentary: Denies pruritus, Denies rash Neurological: Denies numbness, Denies weakness Psychiatric: Denies anxiety, Denies depression Endocrine: Denies fatigue, Denies weight change Past Medical History Past Medical History: COPD, GERD/Reflux, Hyperlipidemia, Mitral Valve Prolapse (MVP), Osteoarthritis (OA) History of Any Multi-Drug Resistant Organisms: None Reported Past Surgical History: Section, Hysterectomy, Joint Replacement Additional Past Surgical History / Comment(s): past hx tracheostomy, 4 eye surgery for cancer from [place]. PAIN CLINIC PROCEDURES Past Anesthesia/Blood Transfusion Reactions: Previous Problems w/ Anesthesia, Postoperative Nausea & Vomiting (PONV) Additional Past Anesthesia/Blood Transfusion Reaction / Comment(s): anger issue post sedation Smoking Status: Former smoker Past Alcohol Use History: None Reported Past Drug Use History: None Reported - Past Family History Mother Additional Family Medical History / Comment(s): from [facility] Medications and Allergies Home Medications Medication Instructions Recorded Confirmed Type Albuterol Inhaler [Ventolin Hfa 2 puff INHALATION RT-Q6H PRN 06/11/18 06/11/18 History Inhaler] Doxycycline [Vibramycin] 100 mg PO BID 06/11/18 06/11/18 History Fluticasone Nasal [place] [Flonase 2 spr EA NOSTRIL DAILY 06/11/18 06/11/18 History Nasal [place]] Glycopyrrolate/Formoterol Fum 2 puff INHALATION RT-BID 06/11/18 06/11/18 History [Bevespi Aerosphere Inhaler] HYDROcodone/APAP 10-325MG [Sieper 1 tab PO BID PRN 06/11/18 06/11/18 History 10-325] Allergies Allergy/AdvReac Type Severity Reaction Status Date / Time diphenhydramine Allergy Unknown Verified 06/11/18 14:31 [From Benadryl] seafood Allergy Itching Uncoded 06/11/18 13:55 Physical Exam Vitals: Vital Signs Temp Pulse Pulse Resp BP BP Pulse Ox 06/12/18 16:32 101 H 18 06/12/18 16:21 103 H 18 06/12/18 16:00 105 H 18 06/12/18 15:54 98.5 F 105 H 18 136/73 93 L 06/12/18 15:36 110 H 20 06/12/18 15:33 98.8 F 110 H 20 140/83 93 L 06/12/18 12:50 92 06/12/18 12:39 96 06/12/18 12:00 98.7 F 107 H 20 146/78 91 L 06/12/18 10:03 92 06/12/18 09:54 96 06/12/18 09:53 96 06/12/18 09:35 88 06/12/18 08:00 105 H 20 06/12/18 07:45 99.0 F 105 H 20 134/79 91 L 06/12/18 04:00 99.3 F 111 H 20 142/79 91 L 06/12/18 00:00 98.7 F 107 H 20 145/76 91 L 06/11/18 21:00 99.1 F 100 20 138/75 88 L 06/11/18 20:40 138/75 91 L 06/11/18 20:30 138/83 89 L 06/11/18 20:20 138/83 87 L 06/11/18 20:10 138/83 91 L 06/11/18 20:00 129/78 93 L 06/11/18 19:50 129/78 92 L 06/11/18 19:40 129/78 91 L 06/11/18 19:30 143/88 92 L 06/11/18 19:20 143/88 92 L 06/11/18 19:13 104 H 26 H 143/88 94 L 06/11/18 19:10 163/98 90 L 06/11/18 19:00 155/93 93 L 06/11/18 18:59 100 06/11/18 18:50 155/93 92 L 06/11/18 18:44 100 06/11/18 18:40 155/93 91 L 06/11/18 18:30 140/88 89 L 06/11/18 18:20 140/88 90 L 06/11/18 18:11 98.6 F 101 H 24 137/73 93 L 06/11/18 18:10 140/88 92 L 06/11/18 18:00 124/111 90 L 06/11/18 17:50 124/111 90 L 06/11/18 17:40 124/111 Intake and Output 06/12/18 06/12/18 06/12/18 06:59 14:59 22:59 Intake Total 700 2040 20 Output Total 300 Balance 700 1740 20 Intake: IV 700 1800 20 Invasive Line 1 10 Invasive Line 2 10 Sodium Chloride 0.9% 1, 700 800 000 ml @ 100 mls/hr IV . Q10H [facility] Rx#:[id number] Sodium Chloride 0.9% 1, 1000 000 ml @ 999 mls/hr IV . Q1H1[facility] Rx#:[id number] Oral 240 Output: Urine 300 Other: Voiding Method Toilet Toilet Toilet Bedside Commode Bedside Commode Bedside Commode # Voids 1 1 # Bowel Movements 1 1 Weight 114.2 kg GENERAL EXAM: Alert, pleasant, 62-year-old white female on 5 L of oxygen with a pulse ox of 91% comfortable in no apparent distress. HEAD: Normocephalic/atraumatic. EYES: Normal reaction of pupils, equal size. Conjunctiva pink, sclera white. NOSE: Clear with pink turbinates. THROAT: No erythema or exudates. NECK: No masses, no JVD, no thyroid enlargement, no adenopathy. CHEST: No chest wall deformity. Symmetrical expansion. LUNGS: Equal air entry with wheeze breath sounds, patient of expiratory phase, rhonchi. CVS: Regular rate and rhythm, normal S1 and S2, no gallops, no murmurs, no rubs ABDOMEN: Soft, nontender. No hepatosplenomegaly, normal bowel sounds, no guarding or rigidity. EXTREMITIES: No clubbing, no edema, no cyanosis, 2+ pulses and upper and lower extremities. MUSCULOSKELETAL: Muscle strength and tone normal. SPINE: No scoliosis or deformity SKIN: No rashes CENTRAL NERVOUS SYSTEM: Alert and oriented -3. No focal deficits, tone is normal in all 4 extremities. PSYCHIATRIC: Alert and oriented -3. Appropriate affect. Intact judgment and insight. Results - Laboratory Findings CBC and BMP: 06/12/18 15:00 06/12/18 06:19 PT/INR, D-dimer PT 11.6 sec (9.0-12.0) 06/11/18 14:28 INR 1.1 (<1.2) 06/11/18 14:28 Abnormal lab findings: Abnormal Labs 06/11/18 06/11/18 06/11/18 14:28 14:28 14:28 WBC 3.1 L RBC 3.60 L Hgb 11.0 L Hct 33.0 L Plt Count 27 L Blast Cells % 7 H* Metamyelocytes # (Man) 0.06 H Myelocytes # (Manual) 0.09 H Blast Cells # (Man) 0.22 H Nucleated RBCs 2 H Pathologist Review See comment A Sodium 132 L Chloride 93 L Creatinine 0.47 L Glucose 122 H POC Glucose (mg/dL) Plasma Lactic Acid Matt 7.6 H* Ferritin AST 104 H Albumin 3.4 L Urine Appearance Urine Protein Ur Squamous Epith Cells Hyaline Casts Urine Mucus Urine Yeast (Budding) Influenza Type A RNA 06/11/18 06/11/18 06/11/18 14:41 17:46 18:12 WBC RBC Hgb Hct Plt Count Blast Cells % Metamyelocytes # (Man) Myelocytes # (Manual) Blast Cells # (Man) Nucleated RBCs Pathologist Review Sodium Chloride Creatinine Glucose POC Glucose (mg/dL) Plasma Lactic Acid Matt 7.9 H* Ferritin AST Albumin Urine Appearance Cloudy H Urine Protein Trace H Ur Squamous Epith Cells 19 H Hyaline Casts 16 H Urine Mucus Rare H Urine Yeast (Budding) Few H Influenza Type A RNA Detected H 06/11/18 06/12/18 06/12/18 21:22 02:14 06:16 WBC RBC Hgb Hct Plt Count Blast Cells % Metamyelocytes # (Man) Myelocytes # (Manual) Blast Cells # (Man) Nucleated RBCs Pathologist Review Sodium Chloride Creatinine Glucose POC Glucose (mg/dL) 184 H 145 H Plasma Lactic Acid Matt 7.3 H* Ferritin AST Albumin Urine Appearance Urine Protein Ur Squamous Epith Cells Hyaline Casts Urine Mucus Urine Yeast (Budding) Influenza Type A RNA 06/12/18 06/12/18 06/12/18 06:19 06:19 06:19 WBC RBC 3.43 L Hgb 10.5 L Hct 32.3 L Plt Count 27 L Blast Cells % 6 H* Metamyelocytes # (Man) 0.04 H Myelocytes # (Manual) 0.04 H Blast Cells # (Man) 0.26 H Nucleated RBCs 2 H Pathologist Review Sodium 136 L Chloride Creatinine 0.42 L Glucose 132 H POC Glucose (mg/dL) Plasma Lactic Acid Matt 6.7 H* Ferritin AST Albumin Urine Appearance Urine Protein Ur Squamous Epith Cells Hyaline Casts Urine Mucus Urine Yeast (Budding) Influenza Type A RNA 06/12/18 06/12/18 06/12/18 06:19 11:41 12:15 WBC RBC Hgb Hct Plt Count Blast Cells % Metamyelocytes # (Man) Myelocytes # (Manual) Blast Cells # (Man) Nucleated RBCs Pathologist Review Sodium Chloride Creatinine Glucose POC Glucose (mg/dL) 128 H Plasma Lactic Acid Matt 6.6 H* Ferritin 880.6 H AST Albumin Urine Appearance Urine Protein Ur Squamous Epith Cells Hyaline Casts Urine Mucus Urine Yeast (Budding) Influenza Type A RNA 06/12/18 06/12/18 06/12/18 15:00 16:12 16:49 WBC 3.5 L RBC 3.27 L Hgb 10.6 L Hct 31.5 L Plt Count 32 L Blast Cells % Metamyelocytes # (Man) 0.07 H Myelocytes # (Manual) Blast Cells # (Man) Nucleated RBCs Pathologist Review Sodium Chloride Creatinine Glucose POC Glucose (mg/dL) 154 H Plasma Lactic Acid Matt 6.7 H* Ferritin AST Albumin Urine Appearance Urine Protein Ur Squamous Epith Cells Hyaline Casts Urine Mucus Urine Yeast (Budding) Influenza Type A RNA - Diagnostic Findings Chest x-ray: report reviewed, image reviewed CT scan - chest: report reviewed, image reviewed Additional studies: EKG reviewed Assessment and Plan Plan: Assessment: #1. Acute on chronic hypoxemic respiratory failure related to acute exacerbation of COPD. #2. Influenza A infection #3. Lactic acidosis, persistent, despite the fluid boluses, he shouldn't was fluid resuscitated with 2 l of normal saline, and receiving maintenance IV fluids at 100 ML per hour. Initial lactic acid was 7.6, currently at 6.7. Denies any history of chronic liver or kidney disease, CT chest did not show any suspicious masses, B12 level was within normal limits. Patient did have significant diarrhea for last several days. No evidence of metabolic acidosis, no evidence of inadequate tissue perfusion #4. Positive blood cultures, Gram stain was positive for gram-positive cocci in chains, follow-up cultures are pending, final culture and sensitivity pending, patient is covered with a combination of Rocephin, Zithromax and vancomycin, ID service is following #5. Pancytopenia, white blood cell count was 3.1, hemoglobin was 11.0, and platelet count was 27 #6. COPD, patient is supposed to wear home oxygen #7. History of tracheostomy at age 2, questionable history of occult cord cancer #8. Chronic and ongoing nicotine dependence, patient carries over [id number] smoking history #9. Morbid obesity #10. Depression Plan ID service has been consulted, but continue with nebulized bronchodilators, Rocephin and Zithromax, IV Solu-Medrol, Tamiflu. Continue with IV fluids, it is of hypoperfusion, patient is awake and alert, oriented 3, renal profile electrolytes are unremarkable, vital signs are stable, no fever or chills. No blood cultures have been sent and are pending at this time, urine culture is pending, sputum for culture. Hematology has been consulted in regards to pancytopenia. Continue with current medical treatment I performed a history & physical examination of the patient and discussed their management with my nurse practitioner, Magi Coelho. I reviewed the nurse practitioner's note and agree with the documented findings and plan of care. Lung sounds are positive for diffuse rhonchi, and expiratory wheezing. The findings and the impression was discussed with the patient. I attest to the documentation by the nurse practitioner. Time with Patient: Greater than 30
[2018-06-12] MEDS: VANCOMYCIN 1,750 MG in SODIUM CHLORIDE 0.9% 500 ML 500 ML IVPB SCH (18:13)
--- NOTE | 2018-06-12 19:01 | P.CONS ---
History of Present Illness - Reason for Consult Consult date: 06/12/18 Anemia, Thrombocytopenia, Leukopenia Requesting physician: Laverne Thomas - Chief Complaint Influenza - History of Present Illness Consult for pancytopenia Review of Systems A 14 point review of systems assessed and completed and all negative except HPI Past Medical History Past Medical History: COPD, GERD/Reflux, Hyperlipidemia, Mitral Valve Prolapse (MVP), Osteoarthritis (OA) History of Any Multi-Drug Resistant Organisms: None Reported Past Surgical History: Section, Hysterectomy, Joint Replacement Additional Past Surgical History / Comment(s): past hx tracheostomy, 4 eye surgery for cancer from [place]. PAIN CLINIC PROCEDURES Past Anesthesia/Blood Transfusion Reactions: Previous Problems w/ Anesthesia, Postoperative Nausea & Vomiting (PONV) Additional Past Anesthesia/Blood Transfusion Reaction / Comm: anger issue post sedation Smoking Status: Former smoker Past Alcohol Use History: None Reported Past Drug Use History: None Reported - Past Family History Mother Additional Family Medical History / Comment(s): from [facility] Medications and Allergies Home Medications Medication Instructions Recorded Confirmed Type Albuterol Inhaler [Ventolin Hfa 2 puff INHALATION RT-Q6H PRN 06/11/18 06/11/18 History Inhaler] Fluticasone Nasal [place] [Flonase 2 spr EA NOSTRIL DAILY 06/11/18 06/11/18 History Nasal [place]] Glycopyrrolate/Formoterol Fum 2 puff INHALATION RT-BID 06/11/18 06/11/18 History [Bevespi Aerosphere Inhaler] HYDROcodone/APAP 10-325MG [[place] 1 tab PO BID PRN 06/11/18 06/11/18 History 10-325] Clotrimazole [place] [Mycelex 10 mg MUCOUS MEM 5XD 5 Days [place] 06/14/18 Rx [place]] Levofloxacin [Levaquin] 500 mg PO DAILY #7 tab 06/14/18 Rx Oseltamivir [Tamiflu] 75 mg PO BID #4 cap 06/14/18 Rx Allergies Allergy/AdvReac Type Severity Reaction Status Date / Time diphenhydramine Allergy Unknown Verified 06/11/18 14:31 [From Benadryl] seafood Allergy Itching Uncoded 06/11/18 13:55 Physical Exam Vitals: Vital Signs Temp Pulse Pulse Resp BP BP Pulse Ox 06/12/18 16:32 101 H 18 03/20/19 16:21 103 H 18 06/12/18 16:00 105 H 18 06/12/18 15:54 98.5 F 105 H 18 136/73 93 L 06/12/18 15:36 110 H 20 06/12/18 15:33 98.8 F 110 H 20 140/83 93 L 06/12/18 12:50 92 06/12/18 12:39 96 06/12/18 12:00 98.7 F 107 H 20 146/78 91 L 06/12/18 10:03 92 06/12/18 09:54 96 06/12/18 09:53 96 06/12/18 09:35 88 06/12/18 08:00 105 H 20 06/12/18 07:45 99.0 F 105 H 20 134/79 91 L 06/12/18 04:00 99.3 F 111 H 20 142/79 91 L 06/12/18 00:00 98.7 F 107 H 20 145/76 91 L 06/11/18 21:00 99.1 F 100 20 138/75 88 L 06/11/18 20:40 138/75 91 L 06/11/18 20:30 138/83 89 L 06/11/18 20:20 138/83 87 L 06/11/18 20:10 138/83 91 L 06/11/18 20:00 129/78 93 L 06/11/18 19:50 129/78 92 L 06/11/18 19:40 129/78 91 L 06/11/18 19:30 143/88 92 L 06/11/18 19:20 143/88 92 L 06/11/18 19:13 104 H 26 H 143/88 94 L 06/11/18 19:10 163/98 90 L 06/11/18 19:00 155/93 93 L 06/11/18 18:59 100 Intake and Output 06/12/18 06/12/18 06/12/18 06:59 14:59 22:59 Intake Total 700 2040 140 Output Total 300 Balance 700 1740 140 Intake: IV 700 1800 20 Invasive Line 1 10 Invasive Line 2 10 Sodium Chloride 0.9% 1, 700 800 000 ml @ 100 mls/hr IV . Q10H [facility] Rx#:[id number] Sodium Chloride 0.9% 1, 1000 000 ml @ 999 mls/hr IV . Q1H1M [facility] Rx#:[id number] Oral 240 120 Output: Urine 300 Other: Voiding Method Toilet Toilet Toilet Bedside Commode Bedside Commode Bedside Commode # Voids 1 2 # Bowel Movements 1 1 Weight 114.2 kg Gen: Alert, no acute distress Head: NC NT Neck Supple No Supraclavicular, Cervical or axillary Lymphadenopathy Lungs: Diminished with coarse expiratory respirations, mild increased Heart: Tachycardic Abdomen: Soft/NT Ext: No edema Neuro: No sensory or Motor deficits Results CBC & Chem 7: 06/14/18 06:03 06/14/18 06:03 Labs: Abnormal Lab Results - Last 24 Hours (Table) 06/11/18 06/11/18 06/11/18 Range/Units 14:28 17:46 18:12 WBC 3.1 L (3.8-10.6) k/uL RBC (3.80-5.40) m/uL Hgb (11.4-16.0) gm/dL Hct (34.0-46.0) % Plt Count 27 L (150-450) k/uL Blast Cells % 7 H* % Metamyelocytes # (Man) 0.06 H (0) k/uL Myelocytes # (Manual) 0.09 H (0) k/uL Blast Cells # (Man) 0.22 H (0) k/uL Nucleated RBCs 2 H (0-0) /100 WBC Pathologist Review See comment A Sodium (137-145) mmol/L Creatinine (0.52-1.04) mg/dL Glucose (74-99) mg/dL POC Glucose (mg/dL) (75-99) mg/dL Plasma Lactic Acid Matt 7.9 H* (0.7-2.0) mmol/L Ferritin (10.0-291.0) ng/mL Urine Appearance Cloudy H (Clear) Urine Protein Trace H (Negative) Ur Squamous Epith Cells 19 H (0-4) /hpf Hyaline Casts 16 H (0-2) /lpf Urine Mucus Rare H (None) /hpf Urine Yeast (Budding) Few H (None) /hpf 06/11/18 06/12/18 06/12/18 Range/Units 21:22 02:14 06:16 WBC (3.8-10.6) k/uL RBC (3.80-5.40) m/uL Hgb (11.4-16.0) gm/dL Hct (34.0-46.0) % Plt Count (150-450) k/uL Blast Cells % % Metamyelocytes # (Man) (0) k/uL Myelocytes # (Manual) (0) k/uL Blast Cells # (Man) (0) k/uL Nucleated RBCs (0-0) /100 WBC Pathologist Review Sodium (137-145) mmol/L Creatinine (0.52-1.04) mg/dL Glucose (74-99) mg/dL POC Glucose (mg/dL) 184 H 145 H (75-99) mg/dL Plasma Lactic Acid Matt 7.3 H* (0.7-2.0) mmol/L Ferritin (10.0-291.0) ng/mL Urine Appearance (Clear) Urine Protein (Negative) Ur Squamous Epith Cells (0-4) /hpf Hyaline Casts (0-2) /lpf Urine Mucus (None) /hpf Urine Yeast (Budding) (None) /hpf 06/12/18 06/12/18 06/12/18 Range/Units 06:19 06:19 06:19 WBC (3.8-10.6) k/uL RBC 3.43 L (3.80-5.40) m/uL Hgb 10.5 L (11.4-16.0) gm/dL Hct 32.3 L (34.0-46.0) % Plt Count 27 L (150-450) k/uL Blast Cells % 6 H* % Metamyelocytes # (Man) 0.04 H (0) k/uL Myelocytes # (Manual) 0.04 H (0) k/uL Blast Cells # (Man) 0.26 H (0) k/uL Nucleated RBCs 2 H (0-0) /100 WBC Pathologist Review Sodium 136 L (137-145) mmol/L Creatinine 0.42 L (0.52-1.04) mg/dL Glucose 132 H (74-99) mg/dL POC Glucose (mg/dL) (75-99) mg/dL Plasma Lactic Acid Matt 6.7 H* (0.7-2.0) mmol/L Ferritin (10.0-291.0) ng/mL Urine Appearance (Clear) Urine Protein (Negative) Ur Squamous Epith Cells (0-4) /hpf Hyaline Casts (0-2) /lpf Urine Mucus (None) /hpf Urine Yeast (Budding) (None) /hpf 06/12/18 06/12/18 06/12/18 Range/Units 06:19 11:41 12:15 WBC (3.8-10.6) k/uL RBC (3.80-5.40) m/uL Hgb (11.4-16.0) gm/dL Hct (34.0-46.0) % Plt Count (150-450) k/uL Blast Cells % % Metamyelocytes # (Man) (0) k/uL Myelocytes # (Manual) (0) k/uL Blast Cells # (Man) (0) k/uL Nucleated RBCs (0-0) /100 WBC Pathologist Review Sodium (137-145) mmol/L Creatinine (0.52-1.04) mg/dL Glucose (74-99) mg/dL POC Glucose (mg/dL) 128 H (75-99) mg/dL Plasma Lactic Acid Matt 6.6 H* (0.7-2.0) mmol/L Ferritin 880.6 H (10.0-291.0) ng/mL Urine Appearance (Clear) Urine Protein (Negative) Ur Squamous Epith Cells (0-4) /hpf Hyaline Casts (0-2) /lpf Urine Mucus (None) /hpf Urine Yeast (Budding) (None) /hpf 06/12/18 06/12/18 06/12/18 Range/Units 15:00 16:12 16:49 WBC 3.5 L (3.8-10.6) k/uL RBC 3.27 L (3.80-5.40) m/uL Hgb 10.6 L (11.4-16.0) gm/dL Hct 31.5 L (34.0-46.0) % Plt Count 32 L (150-450) k/uL Blast Cells % % Metamyelocytes # (Man) 0.07 H (0) k/uL Myelocytes # (Manual) (0) k/uL Blast Cells # (Man) (0) k/uL Nucleated RBCs (0-0) /100 WBC Pathologist Review Sodium (137-145) mmol/L Creatinine (0.52-1.04) mg/dL Glucose (74-99) mg/dL POC Glucose (mg/dL) 154 H (75-99) mg/dL Plasma Lactic Acid Matt 6.7 H* (0.7-2.0) mmol/L Ferritin (10.0-291.0) ng/mL Urine Appearance (Clear) Urine Protein (Negative) Ur Squamous Epith Cells (0-4) /hpf Hyaline Casts (0-2) /lpf Urine Mucus (None) /hpf Urine Yeast (Budding) (None) /hpf Microbiology - Last 24 Hours (Table) 06/11/18 14:28 Blood Culture - Preliminary Blood No Growth after 24 hours 06/11/18 17:00 Blood Culture Gram Stain - Preliminary Blood 06/11/18 17:00 Blood Culture - Final Blood 06/11/18 17:46 Urine Culture - Preliminary Urine,Voided Assessment and Plan Plan: Assessment and Reccomendations: 1. Pancytopenia - Normocytic Anemia: * Will Order full work-up SPEP, Retic, Iron MMA, LDH, NATIVIDAD, Immunofixation - Thrombocytopenia: - Leukopenia: Spoke to Primary team regarding Pathologist review of immature cells found on smear, concern for underlying bone marrow disease although in the picture of infection such as influenza pancytopenia can result with the added stress of on the bone marrow resulting in suppression. If that is the etiology these should improve once she starts to recover from influwwnza - Will further discuss with Dr. koo, await Bone marrow biopsy 24-48 hours and monitor for count recovery and results of above work-up 2. Influenza A: Per Primary - [facility] Physician Attest: I have assessed and completed the full history and physical, agree with above dictation dictated as a scribe.
[2018-06-12 19:11] LABS: Reticulocyte % 0.5 % (0.5-2.0)
[2018-06-12 19:15] LABS: Partial Thromboplastin Time 23.2 sec (22.0-30.0); Prothrombin Time 10.9 sec (9.0-12.0)
[2018-06-12 20:23] LABS: Glucose,Whole Blood 124 mg/dL (75-99)
--- NOTE | 2018-06-12 22:35 | P.CONS ---
History of Present Illness - Reason for Consult Consult date: 06/12/18 - Chief Complaint Progressive shortness of breath and fever - History of Present Illness 62-year-old female who relates she's been ill for about 3 weeks. She relates that she's had a respiratory illness associated with cough and some shortness of breath. She's had some fatigue and malaise associated with this also. However approximately 2 days before she presented emergency center she started to develop fever, the highest was 102. She had worsening shortness of breath and malaise and fatigue and constantly presented to the emergency center. At presentation the patient was obviously acutely ill. She was tachypneic and exhibited relative hypoxia. She subsequently has been admitted for treatment of her respiratory failure, potential pneumonia and acute illness. Testing is come back positive for influenza A. She did have a computed tomography scan of her chest that shows evidence of the enlarged pulmonary artery consistent with pulmonary hypertension without extensive pneumonic infiltration. The patient had 102 fever at the time of her presentation and felt poorly. Of interest she relates that she had gone to her doctor and demanded oxygen therapy, when she went to the pharmacy apparently there was some mixup with her oxygen therapy. Upon questioning of where she went to try to get oxygen, I inquired about DME versus pharmacy and testing for desaturation with activity, for which she had no knowledge. Review of Systems Patient remains somewhat ill and dyspneic, however fever has improved HEENT:Denies headache or acute visual change. Denies sinus or mouth discomforts. Denies neck stiffness or pain. Denies significant oral cavity pain. Denies difficulty on swallowing. Lungs: It is noted the patient has shortness of breath cough without sputum production or hemoptysis Cardiovascular: Has shortness of breath but no chest pain or pressure. No syncope or orthopnea but distinct dyspnea on exertion Gastrointestinal: No significant nausea or emesis but had diarrhea on several episodes before coming to Hospital it now seems to be improved. She has no abdominal pain no hematemesis melena or hematochezia Musculoskeletal: denies significant myalgias or arthralgias. No new joint swelling. Denies new back pain. Skin: Denies new rash or lesions. No new ulcers or wounds are related.. Neuro: Denies headache or visual change. Denies any new onset weakness or difficulty with ambulation. Denies falls or seizures. Psychiatric:Denies anxiety or depression. Endocrine: Significant fatigue but no weight loss Past Medical History Past Medical History: COPD, GERD/Reflux, Hyperlipidemia, Mitral Valve Prolapse (MVP), Osteoarthritis (OA) History of Any Multi-Drug Resistant Organisms: None Reported Past Surgical History: Section, Hysterectomy, Joint Replacement Additional Past Surgical History / Comment(s): past hx tracheostomy, 4 throat surgery for cancer from [place]. PAIN CLINIC PROCEDURES Past Anesthesia/Blood Transfusion Reactions: Previous Problems w/ Anesthesia, Postoperative Nausea & Vomiting (PONV) Additional Past Anesthesia/Blood Transfusion Reaction / Comm: anger issue post sedation Additional Psychological History / Comment(s): Single and lives with her adult son. 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 Stopped smoking recently when she became ill. No notation of recreational drug use or alcohol use. No experience. International travel. Did not relate to current animal exposures. Relates that her son was ill, but cannot recall any other recent sick contacts Smoking Status: Former smoker Past Alcohol Use History: None Reported Past Drug Use History: None Reported - Past Family History Mother Additional Family Medical History / Comment(s): from [facility] Medications and Allergies Home Medications and Allergies Comment(s): Current Medications Albuterol Sulfate (Ventolin Nebulized) 2.5 mg INHALATION RT-Q2H PRN PRN Reason: Shortness Of Breath Or Wheezing Albuterol/Ipratropium (Duoneb 0.5 Mg-3 Mg/3 Ml Soln) 3 ml INHALATION RT-QID [facility] Last Admin: 06/12/18 20:26 Dose: 3 ml Documented by: Azithromycin (Zithromax) 500 mg PO 1700 [facility] Last Admin: 06/12/18 16:55 Dose: Not Given Documented by: Formoterol Fumarate (Perforomist) 20 mcg INHALATION RT-BID [facility] Last Admin: 06/12/18 20:26 Dose: 20 mcg Documented by: Sodium Chloride (Saline 0.9%) 1,000 mls @ 100 mls/hr IV .Q10H [facility] Last Admin: 06/12/18 12:25 Dose: 100 mls/hr Documented by: Ceftriaxone Sodium 1 gm/ (Sodium Chloride) 50 mls @ 100 mls/hr IVPB Q24H [facility] Last Admin: 06/12/18 14:56 Dose: 100 mls/hr Documented by: Vancomycin HCl 1,750 mg/ (Sodium Chloride) 500 mls @ 167 mls/hr IVPB Q12H [facility] Last Admin: 06/12/18 18:13 Dose: 167 mls/hr Documented by: Insulin Aspart (Novolog) 0 unit SQ ACHS [facility]; Protocol Last Admin: 06/12/18 18:12 Dose: 2 unit Documented by: Methylprednisolone Sodium Succinate (Solu-Medrol) 60 mg IV Q6HR [facility] Last Admin: 06/12/18 17:30 Dose: 60 mg Documented by: Miscellaneous Information (Rx Info: Iv Contrast Was Given) 1 each MISCELLANE DAILY PRN PRN Reason: Per Protocol Stop: 06/14/18 09:39 Oseltamivir Phosphate (Tamiflu) 75 mg PO BID [facility] Last Admin: 06/12/18 21:16 Dose: 75 mg Documented by: Pantoprazole Sodium (Protonix) 40 mg PO AC-BRKFST [facility] Last Admin: 06/12/18 12:25 Dose: 40 mg Documented by: Home Medications Medication Instructions Recorded Confirmed Type Albuterol Inhaler [Ventolin Hfa 2 puff INHALATION RT-Q6H PRN 06/11/18 06/11/18 History Inhaler] Doxycycline [Vibramycin] 100 mg PO BID 06/11/18 06/11/18 History Fluticasone Nasal [place] [Flonase 2 spr EA NOSTRIL DAILY 06/11/18 06/11/18 History Nasal [place]] Glycopyrrolate/Formoterol Fum 2 puff INHALATION RT-BID 06/11/18 06/11/18 History [Bevespi Aerosphere Inhaler] HYDROcodone/APAP 10-325MG [[place] 1 tab PO BID PRN 06/11/18 06/11/18 History 10-325] Allergies Allergy/AdvReac Type Severity Reaction Status Date / Time diphenhydramine Allergy Unknown Verified 06/11/18 14:31 [From Benadryl] seafood Allergy Itching Uncoded 06/11/18 13:55 Physical Exam Vitals: Vital Signs Temp Pulse Pulse Resp BP Pulse Ox 06/12/18 20:42 98 18 06/12/18 20:36 100 18 06/12/18 20:35 100 18 06/12/18 20:27 99 18 06/12/18 16:32 101 H 18 06/12/18 16:21 103 H 18 06/12/18 16:00 105 H 18 06/12/18 15:54 98.5 F 105 H 18 136/73 93 L 06/12/18 15:36 110 H 20 06/12/18 15:33 98.8 F 110 H 20 140/83 93 L 06/12/18 12:50 92 06/12/18 12:39 96 06/12/18 12:00 98.7 F 107 H 20 146/78 91 L 06/12/18 10:03 92 06/12/18 09:54 96 06/12/18 09:53 96 06/12/18 09:35 88 06/12/18 08:00 105 H 20 06/12/18 07:45 99.0 F 105 H 20 134/79 91 L 06/12/18 04:00 99.3 F 111 H 20 142/79 91 L 06/12/18 00:00 98.7 F 107 H 20 145/76 91 L Intake and Output 06/12/18 06/12/18 06/12/18 06:59 14:59 22:59 Intake Total 700 2040 140 Output Total 300 Balance 700 1740 140 Intake: IV 700 1800 20 Invasive Line 1 10 Invasive Line 2 10 Sodium Chloride 0.9% 1, 700 800 000 ml @ 100 mls/hr IV . Q10H [facility] Rx#:[id number] Sodium Chloride 0.9% 1, 1000 000 ml @ 999 mls/hr IV . Q1H1M [facility] Rx#:[id number] Oral 240 120 Output: Urine 300 Other: Voiding Method Toilet Toilet Toilet Bedside Commode Bedside Commode Bedside Commode # Voids 1 2 # Bowel Movements 1 1 Weight 114.2 kg 62-year-old female who is still dyspneic but fever has started to improve HEENT: Anicteric conjunctiva are pale but moist nasal mucosa grossly intact without significant lesions, there is no thrush. No oral lesions Neck: The neck is supple without significant lymphadenopathy or thyromegaly. Lungs: Symmetrical air entry is noted coarse expiratory wheezes at the lung lockhart no paige bronchial sounds normal dullness or egophony Heart: Regular rate and rhythm with an audible S1-S2, no S3 loud S4. There is no significant murmur click or rub, PMI was nondisplaced. Abdomen: Positive bowel sounds soft and nontender without palpable masses or organomegaly. There was no guarding or rebound. Extremities: The upper extremities have excellent pulses they are symmetric, no significant petechiae or telangiectasia. No splinter hemorrhages were noted. The lower extremities are free from significant edema. The peripheral pulses were 2+ and symmetric. Neuro: Awake alert oriented to person place and time. There are no acute new gross focal sensory motor deficits. Patient though is mildly evasive, and relates to distrust and wants to be discharged quickly. Results CBC & Chem 7: 06/12/18 15:00 06/12/18 06:19 Labs: Abnormal Lab Results - Last 24 Hours (Table) 06/11/18 06/12/18 06/12/18 Range/Units 14:28 02:14 06:16 WBC 3.1 L (3.8-10.6) k/uL RBC (3.80-5.40) m/uL Hgb (11.4-16.0) gm/dL Hct (34.0-46.0) % Plt Count 27 L (150-450) k/uL Blast Cells % 7 H* % Metamyelocytes # (Man) 0.06 H (0) k/uL Myelocytes # (Manual) 0.09 H (0) k/uL Blast Cells # (Man) 0.22 H (0) k/uL Nucleated RBCs 2 H (0-0) /100 WBC Pathologist Review See comment A ESR (0-20) mm/hr Sodium (137-145) mmol/L Creatinine (0.52-1.04) mg/dL Glucose (74-99) mg/dL POC Glucose (mg/dL) 145 H (75-99) mg/dL Plasma Lactic Acid Matt 7.3 H* (0.7-2.0) mmol/L Ferritin (10.0-291.0) ng/mL 06/12/18 06/12/18 06/12/18 Range/Units 06:19 06:19 06:19 WBC (3.8-10.6) k/uL RBC 3.43 L (3.80-5.40) m/uL Hgb 10.5 L (11.4-16.0) gm/dL Hct 32.3 L (34.0-46.0) % Plt Count 27 L (150-450) k/uL Blast Cells % 6 H* % Metamyelocytes # (Man) 0.04 H (0) k/uL Myelocytes # (Manual) 0.04 H (0) k/uL Blast Cells # (Man) 0.26 H (0) k/uL Nucleated RBCs 2 H (0-0) /100 WBC Pathologist Review ESR (0-20) mm/hr Sodium 136 L (137-145) mmol/L Creatinine 0.42 L (0.52-1.04) mg/dL Glucose 132 H (74-99) mg/dL POC Glucose (mg/dL) (75-99) mg/dL Plasma Lactic Acid Matt 6.7 H* (0.7-2.0) mmol/L Ferritin (10.0-291.0) ng/mL 06/12/18 06/12/18 06/12/18 Range/Units 06:19 11:41 12:15 WBC (3.8-10.6) k/uL RBC (3.80-5.40) m/uL Hgb (11.4-16.0) gm/dL Hct (34.0-46.0) % Plt Count (150-450) k/uL Blast Cells % % Metamyelocytes # (Man) (0) k/uL Myelocytes # (Manual) (0) k/uL Blast Cells # (Man) (0) k/uL Nucleated RBCs (0-0) /100 WBC Pathologist Review ESR (0-20) mm/hr Sodium (137-145) mmol/L Creatinine (0.52-1.04) mg/dL Glucose (74-99) mg/dL POC Glucose (mg/dL) 128 H (75-99) mg/dL Plasma Lactic Acid Matt 6.6 H* (0.7-2.0) mmol/L Ferritin 880.6 H (10.0-291.0) ng/mL 06/12/18 06/12/18 06/12/18 Range/Units 15:00 15:00 16:12 WBC 3.5 L (3.8-10.6) k/uL RBC 3.27 L (3.80-5.40) m/uL Hgb 10.6 L (11.4-16.0) gm/dL Hct 31.5 L (34.0-46.0) % Plt Count 32 L (150-450) k/uL Blast Cells % % Metamyelocytes # (Man) 0.07 H (0) k/uL Myelocytes # (Manual) (0) k/uL Blast Cells # (Man) (0) k/uL Nucleated RBCs (0-0) /100 WBC Pathologist Review ESR 66 H (0-20) mm/hr Sodium (137-145) mmol/L Creatinine (0.52-1.04) mg/dL Glucose (74-99) mg/dL POC Glucose (mg/dL) (75-99) mg/dL Plasma Lactic Acid Matt 6.7 H* (0.7-2.0) mmol/L Ferritin (10.0-291.0) ng/mL 06/12/18 06/12/18 Range/Units 16:49 20:16 WBC (3.8-10.6) k/uL RBC (3.80-5.40) m/uL Hgb (11.4-16.0) gm/dL Hct (34.0-46.0) % Plt Count (150-450) k/uL Blast Cells % % Metamyelocytes # (Man) (0) k/uL Myelocytes # (Manual) (0) k/uL Blast Cells # (Man) (0) k/uL Nucleated RBCs (0-0) /100 WBC Pathologist Review ESR (0-20) mm/hr Sodium (137-145) mmol/L Creatinine (0.52-1.04) mg/dL Glucose (74-99) mg/dL POC Glucose (mg/dL) 154 H 124 H (75-99) mg/dL Plasma Lactic Acid Matt (0.7-2.0) mmol/L Ferritin (10.0-291.0) ng/mL Microbiology - Last 24 Hours (Table) 06/11/18 17:46 Urine Culture - Final Urine,Voided 06/11/18 14:28 Blood Culture - Preliminary Blood No Growth after 24 hours 06/11/18 17:00 Blood Culture Gram Stain - Preliminary Blood 06/11/18 17:00 Blood Culture - Final Blood Laboratory Results WBC 3.5 k/uL (3.8-10.6) L 06/12/18 15:00 RBC 3.27 m/uL (3.80-5.40) L 06/12/18 15:00 Hgb 10.6 gm/dL (11.4-16.0) L 06/12/18 15:00 Hct 31.5 % (34.0-46.0) L 06/12/18 15:00 MCV 96.2 fL (80.0-100.0) 06/12/18 15:00 MCH 32.3 pg (25.0-35.0) 06/12/18 15:00 MCHC 33.6 g/dL (31.0-37.0) 06/12/18 15:00 RDW 14.9 % (11.5-15.5) 06/12/18 15:00 Plt Count 32 k/uL (150-450) L 06/12/18 15:00 Neutrophils % Not Reportable 06/11/18 14:28 Neutrophils % (Manual) 54 % 06/12/18 15:00 Band Neutrophils % 7 % 06/12/18 15:00 Lymphocytes % Not Reportable 06/11/18 14:28 Lymphocytes % (Manual) 33 % 06/12/18 15:00 Monocytes % Not Reportable 06/11/18 14:28 Monocytes % (Manual) 4 % 06/12/18 15:00 Eosinophils % Not Reportable 06/11/18 14:28 Eosinophils % (Manual) 1 % 06/11/18 14:28 Basophils % Not Reportable 06/11/18 14:28 Basophils % (Manual) Not Reportable 06/12/18 06:19 Metamyelocytes % 2 % 06/12/18 15:00 Myelocytes % 1 % 06/12/18 06:19 Blast Cells % 6 % H* 06/12/18 06:19 Neutrophils # Not Reportable 06/11/18 14:28 Neutrophils # (Manual) 2.10 k/uL (1.3-7.7) 06/12/18 15:00 Band Neutrophils # 0.04 k/uL 06/12/18 06:19 Lymphocytes # Not Reportable 06/11/18 14:28 Lymphocytes # (Manual) 1.16 k/uL (1.0-4.8) 06/12/18 15:00 Monocytes # Not Reportable 06/11/18 14:28 Monocytes # (Manual) 0.14 k/uL (0-1.0) 06/12/18 15:00 Eosinophils # Not Reportable 06/11/18 14:28 Eosinophils # (Manual) 0.03 k/uL (0-0.7) 06/11/18 14:28 Basophils # Not Reportable 06/11/18 14:28 Basophils # (Manual) Not Reportable 06/12/18 06:19 Metamyelocytes # (Man) 0.07 k/uL (0) H 06/12/18 15:00 Myelocytes # (Manual) 0.04 k/uL (0) H 06/12/18 06:19 Blast Cells # (Man) 0.26 k/uL (0) H 06/12/18 06:19 Nucleated RBCs 0 /100 WBC (0-0) 06/12/18 15:00 Manual Slide Review Performed 06/12/18 15:00 Pathologist Review See comment A 06/11/18 14:28 Polychromasia Present 06/11/18 14:28 Poikilocytosis (manual Present 06/11/18 14:28 Rouleaux Present 06/11/18 14:28 ESR 66 mm/hr (0-20) H 06/12/18 15:00 Retic Count 0.5 % (0.5-2.0) 06/12/18 15:00 PT 10.9 sec (9.0-12.0) 06/12/18 06:00 INR 1.0 (<1.2) 06/12/18 06:00 APTT 23.2 sec (22.0-30.0) 06/12/18 06:00 Sodium 136 mmol/L (137-145) L 06/12/18 06:19 Potassium 4.1 mmol/L (3.5-5.1) 06/12/18 06:19 Chloride 98 mmol/L (98-107) 06/12/18 06:19 Carbon Dioxide 29 mmol/L (22-30) 06/12/18 06:19 Anion Gap 9 mmol/L 06/12/18 06:19 BUN 11 mg/dL (7-17) 06/12/18 06:19 Creatinine 0.42 mg/dL (0.52-1.04) L 06/12/18 06:19 Est GFR (CKD-EPI)AfAm >90 (>60 ml/min/1.73 sqM) 06/12/18 06:19 Est GFR (CKD-EPI)NonAf >90 (>60 ml/min/1.73 sqM) 06/12/18 06:19 Glucose 132 mg/dL (74-99) H 06/12/18 06:19 POC Glucose (mg/dL) 124 mg/dL (75-99) H 06/12/18 20:16 POC Glu [employer] ID Rosanna Han 06/12/18 20:16 Lactic Ac Sepsis Rflx Y 06/12/18 13:04 Plasma Lactic Acid Matt 6.7 mmol/L (0.7-2.0) H* 06/12/18 16:12 Calcium 8.9 mg/dL (8.4-10.2) 06/12/18 06:19 Ferritin 880.6 ng/mL (10.0-291.0) H 06/12/18 06:19 Total Bilirubin 0.9 mg/dL (0.2-1.3) 06/11/18 14:28 AST 104 U/L (14-36) H 06/11/18 14:28 ALT 32 U/L (9-52) 06/11/18 14:28 Alkaline Phosphatase 123 U/L (38-126) 06/11/18 14:28 Total Protein 6.5 g/dL (6.3-8.2) 06/11/18 14:28 Albumin 3.4 g/dL (3.5-5.0) L 06/11/18 14:28 Vitamin B12 289.0 pg/mL (200.0-944.0) 06/12/18 06:19 Urine Color Yellow 06/11/18 17:46 Urine Appearance Cloudy (Clear) H 06/11/18 17:46 Urine pH 6.0 (5.0-8.0) 06/11/18 17:46 Ur Specific [place] 1.009 (1.001-1.035) 06/11/18 17:46 Urine Protein Trace (Negative) H 06/11/18 17:46 Urine Glucose (UA) Negative (Negative) 06/11/18 17:46 Urine Ketones Negative (Negative) 06/11/18 17:46 Urine Blood Negative (Negative) 06/11/18 17:46 Urine Nitrite Negative (Negative) 06/11/18 17:46 Urine Bilirubin Negative (Negative) 06/11/18 17:46 Urine Urobilinogen <2.0 mg/dL (<2.0) 06/11/18 17:46 Ur Leukocyte Esterase Negative (Negative) 06/11/18 17:46 Urine RBC 3 /hpf (0-5) 06/11/18 17:46 Urine WBC 2 /hpf (0-5) 06/11/18 17:46 Ur Squamous Epith Cells 19 /hpf (0-4) H 06/11/18 17:46 Hyaline Casts 16 /lpf (0-2) H 06/11/18 17:46 Urine Mucus Rare /hpf (None) H 06/11/18 17:46 Urine Yeast (Budding) Few /hpf (None) H 06/11/18 17:46 Influenza Type A RNA Detected (Not Detectd) H 06/11/18 14:41 Influenza Type B (PCR) Not Detected (Not Detectd) 06/11/18 14:41 Microbiology 06/11/18 17:46 Urine,Voided Urine Culture - Final 06/11/18 14:28 Blood Blood Culture - Preliminary No Growth after 24 hours 06/11/18 17:00 Blood Blood Culture Gram Stain - Preliminary 06/11/18 17:00 Blood Blood Culture - Final Assessment and Plan (1) Influenza A Current Visit: Yes Status: Acute Code(s): J10.1 - FLU DUE TO OTH IDENT INFLUENZA VIRUS W OTH RESP MANIFEST SNOMED Code(s): 933627509 (2) Gram-positive cocci bacteremia Narrative/Plan: 62-year-old woman presents to Hospital from home with a several week history of illness, with significant cough and progressive dyspnea. She was ill enough that she stop smoking. She developed a febrile illness and felt considerably worse. Presents with fever, shortness of breath and malaise worsened she presents to Hospital for further intervention. Is noted there is evidence of influenza A and is being treated with Tamiflu appropriately. There is concern for also secondary pneumonia although the computed tomography scan does not show significant infiltrates. However is evidence the positive blood culture with gram-positive cocci. The echocardiogram is pending. The computed tomography scan does reveal evidence of likely pulmonary hypertension. Vancomycin is added until we have further information. Follow up blood cultures are already in process The patient voices that she wants to go home as soon as possible, we discussed that she is acutely ill, requiring oxygen therapy, and has bacteria growing in her blood and will need to have further information so a appropriate plan can be developed. Hopefully she will remain in hospital until information is available. Current Visit: Yes Status: Acute Code(s): R78.81 - BACTEREMIA SNOMED Code(s): 274064641872 (3) Fever Current Visit: Yes Status: Acute Code(s): R50.9 - FEVER, UNSPECIFIED SNOMED Code(s): 722545289 (4) Pancytopenia Current Visit: Yes Status: Acute Code(s): D61.818 - OTHER PANCYTOPENIA SNOMED Code(s): 525472110
[2018-06-13] MEDS: VANCOMYCIN 1,750 MG in SODIUM CHLORIDE 0.9% 500 ML 500 ML IVPB SCH ×2 (06:24→17:31)
[2018-06-13 06:26] LABS: Glucose,Whole Blood 122 mg/dL (75-99)
[2018-06-13] MEDS: methylPREDNISolone SOD SUCCI 125 MG/2 ML VIAL IV SCH ×2 (06:27→11:36)
[2018-06-13] MEDS: INSULIN ASPART (NovoLOG) 100 UNIT/ML VIAL SQ SCH ×5 (06:27→23:24)
[2018-06-13] MEDS: SODIUM CHLORIDE 0.9% 1,000 ML IV SCH ×2 (06:28→08:59)
[2018-06-13] MEDS: PANTOPRAZOLE 40 MG TABLET PO SCH (07:15)
[2018-06-13] MEDS: FORMOTEROL FUMARATE 20 MCG/2 ML NEBU INHALATION SCH ×2 (08:05→21:55)
[2018-06-13] MEDS: IPRATROPIUM-ALBUTEROL 3 ML NEB INHALATION SCH ×4 (08:05→21:55)
[2018-06-13 08:08] LABS: Band Neutrophils % 11 %; Blast Cells # (M) 0.25 k/uL (0); Lymphocytes # (M) 0.91 k/uL (1.0-4.8); Metamyelocytes # (M) 0.14 k/uL (0); Metamyelocytes % 4 %; Myelocytes # (M) 0.07 k/uL (0); Myelocytes % 2 %; Neutrophils % (M) 52 %
[2018-06-13 08:09] LABS: Nucleated Red Blood Cells 1 /100 WBC (0-0); Total Cells Counted 200
[2018-06-13 08:10] LABS: Toxic Vacuolation Present
[2018-06-13 08:11] LABS: Poikilocytosis (M) Present
[2018-06-13 08:37] LABS: HCT 30.7 % (34.0-46.0); HGB 9.9 gm/dL (11.4-16.0); MCH 30.4 pg (25.0-35.0); MCHC 32.2 g/dL (31.0-37.0); MCV 94.3 fL (80.0-100.0); Mean Platelet Volume 7.6; RBC 3.25 m/uL (3.80-5.40); RDW 14.6 % (11.5-15.5); WBC 3.5 k/uL (3.8-10.6)
[2018-06-13 08:46] LABS: ALT 35 U/L (9-52); AST 76 U/L (14-36); Albumin 2.8 g/dL (3.5-5.0); Alkaline Phosphatase 93 U/L (38-126); Anion Gap 7 mmol/L; Blood Urea Nitrogen 12 mg/dL (7-17); Calcium 8.7 mg/dL (8.4-10.2); Carbon Dioxide 31 mmol/L (22-30); Chloride 100 mmol/L (98-107); Glucose 112 mg/dL (74-99); Magnesium 1.9 mg/dL (1.6-2.3); Phosphorus 3.2 mg/dL (2.5-4.5); Potassium 4.1 mmol/L (3.5-5.1); Sodium 138 mmol/L (137-145); Total Bilirubin 0.4 mg/dL (0.2-1.3); Total Protein 5.5 g/dL (6.3-8.2)
[2018-06-13 08:47] LABS: Platelet Count 30 k/uL (150-450)
[2018-06-13] MEDS: OSELTAMIVIR 75 MG CAP PO SCH ×2 (08:58→23:24)
[2018-06-13 11:18] LABS: Protein, Total 5.3 g/dL (6.2-8.2); Rheumatoid Factor 8 IU/mL (0-15)
[2018-06-13 11:37] LABS: Glucose,Whole Blood 126 mg/dL (75-99)
[2018-06-13] MEDS: AZITHROMYCIN 500 MG TAB PO SCH (11:37)
[2018-06-13 11:57] LABS: Hemoglobin A1C 7.1 % (4.0-6.0)
--- NOTE | 2018-06-13 14:22 | P.PN ---
Subjective Progress Note Date: 06/13/18 Principal diagnosis: shortness of breath Patient is a 62-year-old female with past medical history of COPD on inhalers at requiring home O2, GERD, and mitral valve prolapse who presented to the ER with complaints of shortness of breath. In the ER she underwent an exten sive evaluation. Initial chest x-ray showed hilar enlargement. Initial laboratory analysis showed leukopenia, anemia, and thrombocytopenia. She was also found to have a sodium of 132, lactic acid of 7.9, mildly elevated AST of 104. Urinalysis is negative. She was positive for influenza A. She was started on IV fluids, steroids, bronchodilators Rocephin, and Zithromax. She was admitted to the selective care unit for further monitoring. Her lactic acid slowly was improving. Her breathing was getting slightly better. Her CBC differential had be reviewed manually and was consistent with increased blast cells. She was also found to be severely thrombocytopenic. Dr. Olivier was consulted who recommends outpatient follow-up in 1 week for bone marrow. She wwas found to have alpha hemolytic strep bactermia and was seen by Dr. Page and can complete a course of oral fluoroquinolones. Patient seen and examined at bedside. Feeling much better. Breathing much improved. No nausea or vomiting. Diarrhea has slowed down. No chest pain. Still has not been up and walking and will perform this today. Discussed at length one more day in the hospital to assess for need for oxygen, physical therapy and determine course of antibiotics. Objective - Vital Signs Vital signs: Vital Signs Temp 98.0 F 06/13/18 11:59 Pulse 96 06/13/18 12:10 Resp 18 06/13/18 12:00 BP 136/90 06/13/18 11:59 Pulse Ox 91 L 06/13/18 11:59 Intake & Output 06/12/18 06/13/18 06/13/18 18:59 06:59 18:59 Intake Total 2180 520 Output Total 300 400 400 Balance 1880 -400 120 Weight 116.1 kg Intake: IV 1820 Invasive Line 1 10 Invasive Line 2 10 Sodium Chloride 0.9% 1, 800 000 ml @ 100 mls/hr IV . Q10H JEAN PAUL Rx#:[id number] Sodium Chloride 0.9% 1, 1000 000 ml @ 999 mls/hr IV . Q1H1M ONE Rx#:[id number] Oral 360 520 Output: Urine 300 400 400 Other: Voiding Method Toilet Toilet Toilet Bedside Commode Bedside Commode Bedside Commode # Voids 2 1 # Bowel Movements 1 - Exam General: ill appearing, no distress, appears older than stated age, obese Derm: warm, dry Head: atraumatic, normocephalic, symmetric Eyes: EOMI, no lid lag, anicteric sclera Mouth: no lip lesion, mucus membranes moist Cardiovascular: S1S2 tachycardic, no murmur, positive posterior tibial pulse omar ateral, Lungs: Decreased breath sounds bilateral bases, no rhonchi, no rales , no accessory muscle use Abdominal: soft, nontender to palpation, no guarding, no appreciable organomegaly Ext: no gross muscle atrophy, trace edema, no contractures Neuro: CN II-XI grossly intact, no focal neuro deficits Psych: Alert, oriented, appropriate affect - Labs CBC & Chem 7: 06/13/18 06:06 06/13/18 06:06 Labs: Abnormal Lab Results - Last 24 Hours (Table) 06/11/18 06/12/18 06/12/18 Range/Units 14:28 06:19 15:00 WBC 3.5 L (3.8-10.6) k/uL RBC 3.27 L (3.80-5.40) m/uL Hgb 10.6 L (11.4-16.0) gm/dL Hct 31.5 L (34.0-46.0) % Plt Count 32 L (150-450) k/uL Blast Cells % 7 H* % Lymphocytes # (Manual) 0.91 L (1.0-4.8) k/uL Metamyelocytes # (Man) 0.14 H (0) k/uL Myelocytes # (Manual) 0.07 H (0) k/uL Blast Cells # (Man) 0.25 H (0) k/uL Nucleated RBCs 1 H (0-0) /100 WBC Pathologist Review See comment A ESR (0-20) mm/hr Carbon Dioxide (22-30) mmol/L Creatinine (0.52-1.04) mg/dL Glucose (74-99) mg/dL POC Glucose (mg/dL) (75-99) mg/dL Hemoglobin A1c (4.0-6.0) % Plasma Lactic Acid Matt (0.7-2.0) mmol/L Ferritin 880.6 H (10.0-291.0) ng/mL AST (14-36) U/L Lactate Dehydrogenase (313-618) U/L Total Protein (6.3-8.2) g/dL Total Protein (PEP) (6.2-8.2) g/dL Albumin (3.5-5.0) g/dL 06/12/18 06/12/18 06/12/18 Range/Units 15:00 16:12 16:49 WBC (3.8-10.6) k/uL RBC (3.80-5.40) m/uL Hgb (11.4-16.0) gm/dL Hct (34.0-46.0) % Plt Count (150-450) k/uL Blast Cells % % Lymphocytes # (Manual) (1.0-4.8) k/uL Metamyelocytes # (Man) (0) k/uL Myelocytes # (Manual) (0) k/uL Blast Cells # (Man) (0) k/uL Nucleated RBCs (0-0) /100 WBC Pathologist Review ESR 66 H (0-20) mm/hr Carbon Dioxide (22-30) mmol/L Creatinine (0.52-1.04) mg/dL Glucose (74-99) mg/dL POC Glucose (mg/dL) 154 H (75-99) mg/dL Hemoglobin A1c (4.0-6.0) % Plasma Lactic Acid Matt 6.7 H* (0.7-2.0) mmol/L Ferritin (10.0-291.0) ng/mL AST (14-36) U/L Lactate Dehydrogenase (313-618) U/L Total Protein (6.3-8.2) g/dL Total Protein (PEP) (6.2-8.2) g/dL Albumin (3.5-5.0) g/dL 06/12/18 06/13/18 06/13/18 Range/Units 20:16 06:06 06:06 WBC (3.8-10.6) k/uL RBC (3.80-5.40) m/uL Hgb (11.4-16.0) gm/dL Hct (34.0-46.0) % Plt Count (150-450) k/uL Blast Cells % % Lymphocytes # (Manual) (1.0-4.8) k/uL Metamyelocytes # (Man) (0) k/uL Myelocytes # (Manual) (0) k/uL Blast Cells # (Man) (0) k/uL Nucleated RBCs (0-0) /100 WBC Pathologist Review ESR (0-20) mm/hr Carbon Dioxide (22-30) mmol/L Creatinine (0.52-1.04) mg/dL Glucose (74-99) mg/dL POC Glucose (mg/dL) 124 H (75-99) mg/dL Hemoglobin A1c 7.1 H (4.0-6.0) % Plasma Lactic Acid Matt (0.7-2.0) mmol/L Ferritin (10.0-291.0) ng/mL AST (14-36) U/L Lactate Dehydrogenase 7932 H (313-618) U/L Total Protein (6.3-8.2) g/dL Total Protein (PEP) (6.2-8.2) g/dL Albumin (3.5-5.0) g/dL 06/13/18 06/13/18 06/13/18 Range/Units 06:06 06:06 06:06 WBC 3.5 L (3.8-10.6) k/uL RBC 3.25 L (3.80-5.40) m/uL Hgb 9.9 L (11.4-16.0) gm/dL Hct 30.7 L (34.0-46.0) % Plt Count 30 L (150-450) k/uL Blast Cells % % Lymphocytes # (Manual) (1.0-4.8) k/uL Metamyelocytes # (Man) (0) k/uL Myelocytes # (Manual) (0) k/uL Blast Cells # (Man) (0) k/uL Nucleated RBCs (0-0) /100 WBC Pathologist Review ESR (0-20) mm/hr Carbon Dioxide 31 H (22-30) mmol/L Creatinine 0.43 L (0.52-1.04) mg/dL Glucose 112 H (74-99) mg/dL POC Glucose (mg/dL) (75-99) mg/dL Hemoglobin A1c (4.0-6.0) % Plasma Lactic Acid Matt (0.7-2.0) mmol/L Ferritin (10.0-291.0) ng/mL AST 76 H (14-36) U/L Lactate Dehydrogenase (313-618) U/L Total Protein 5.5 L (6.3-8.2) g/dL Total Protein (PEP) 5.3 L (6.2-8.2) g/dL Albumin 2.8 L (3.5-5.0) g/dL 06/13/18 06/13/18 Range/Units 06:24 11:25 WBC (3.8-10.6) k/uL RBC (3.80-5.40) m/uL Hgb (11.4-16.0) gm/dL Hct (34.0-46.0) % Plt Count (150-450) k/uL Blast Cells % % Lymphocytes # (Manual) (1.0-4.8) k/uL Metamyelocytes # (Man) (0) k/uL Myelocytes # (Manual) (0) k/uL Blast Cells # (Man) (0) k/uL Nucleated RBCs (0-0) /100 WBC Pathologist Review ESR (0-20) mm/hr Carbon Dioxide (22-30) mmol/L Creatinine (0.52-1.04) mg/dL Glucose (74-99) mg/dL POC Glucose (mg/dL) 122 H 126 H (75-99) mg/dL Hemoglobin A1c (4.0-6.0) % Plasma Lactic Acid Matt (0.7-2.0) mmol/L Ferritin (10.0-291.0) ng/mL AST (14-36) U/L Lactate Dehydrogenase (313-618) U/L Total Protein (6.3-8.2) g/dL Total Protein (PEP) (6.2-8.2) g/dL Albumin (3.5-5.0) g/dL Microbiology - Last 24 Hours (Table) 06/11/18 17:00 Blood Culture Gram Stain - Preliminary Blood Blood Culture - Preliminary Alpha Hemolytic Streptococcus 06/11/18 17:46 Urine Culture - Final Urine,Voided 06/11/18 14:28 Blood Culture - Preliminary Blood No Growth after 24 hours 06/11/18 17:00 Blood Culture - Final Blood Assessment and Plan Assessment: Pancytopenia - May be related to Influenza - Oncology recs: if counts remain stable then outpatient Bone marrow biopsy - Hgb stable - LDH, ferritin, and lactic acid elevated reflective of bone marrow process alpha hemopytic strep bacteremia - d/w Dr. Page plan will be for oral floroquinolone on discharge Influenza A with acute exacerbation of COPD -continue Zithromax for acute exacerbation of COPD -Continue Tamiflu day #3 -pulm recs - wean steroids - continue bronchodilators, peroformist, scheduled duonebs, prn albuterol - pulmonary hygiene Persistent lactic acid elevation - not reflective of sepsis, reflective of bone marrow process - no indication to repeat Acute hypoxic respiratory failure - treatment as above for COPD - wean O2 as able. - O2 sat of 84 % on RA with ambulation will need home O2 as has baseline COPD. Morbid obesity - structured outpatient weight loss Tobacco abuse - cessation - denies needing nicotine replacement at this time GERD - PPI HLD - not on medication at home Plan if for home in AM if still feeling well and oxygen therapy in place. DVT prophylaxis: SCDs Discussed with: Patient, nursing, Dr. Olivier, Dr. Page Anticipated discharge: [address]: home with home health A total of 35 minutes was spent on the care of this complex patient more than 50% of the time was spent in counseling and care coordination.
--- NOTE | 2018-06-13 16:08 | P.PN ---
Subjective Progress Note Date: 06/13/18 Principal diagnosis: Acute on chronic hypoxemic respiratory failure secondary to an acute exacerbation of chronic obstructive pulmonary disease. Complicated by influenza A. This is 62-year-old white female patient of Dr. Elam in [place], was brought to the hospital by an ambulance to 2 week history of cough, difficulty breathing, intermittent fevers. Cough was occasionally productive, with production of clear and white sputum. Denied any chest pain, complained of inc reasing fatigue, and worsening shortness of breath. Denies any sick contacts. No nausea, vomiting. Did have significant diarrhea over the last several days, 5-6 episodes a day. Had decreased oral intake. Chest x-ray showed right hilar enlargement or could relate to adenopathy, mass or pulmonary arterial hypertension, no focal consolidation but there was central peribronchial interstitial prominence could suggest bronchitis or atypical pneumonitis. Blood work showed pancytopenia, white blood cell count of 3.1, hemoglobin of 11.0, platelet count was only 27, 7% blasts, INR was within normal limits at 1.1, sodium is 132, potassium is 3.7, chloride was 93, CO2 is 27, BUN was 13, creatinine is 0.47, lactic acid has been significantly elevated at 7.9, and has stayed elevated despite fluid resuscitation at 6.7, AST was 104, the rest of the LFTs were within normal limits, influenza screen was positive for influenza A. patient was started on Tamiflu, Zithromax and Rocephin, she was given vancomycin due to positive blood cultures. Blood culture Gram stain showed gram-positive cocci in chains. Echocardiogram has been ordered and is pending at this time. Chest CT showed enlarged pulmonary arteries, cardiomegaly without suspicious acute infiltrates, no suspicious masses or adenopathy. Medical history is significant for COPD, and patient states she supposed to have home oxygen, but due to some paperwork mixup she was not able to get home oxygen, and some inhalers include that of Bevespi, Ventolin and albuterol nebulized treatment. Patient denies any history of hypertension, denies history of diabetes. 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 Patient apparently had a tracheostomy at the time. Prior history of eye surgery. History of depression, patient is a current smoker, 40+-pack-year history of smoking, a pack a day, she quit when she started getting sick 2 weeks ago. Also gives a history of 4 nodules removed from her neck, is old healed scar above the old tracheostomy site. She is somewhat of a poor historian. During our evaluation patient no acute distress, she still on 5 L of oxygen and her pulse ox is around 91%. Lung sounds are diminished, with the minimal wheezing, and rhonchi patient has a loose congested cough. The patient is seen today 06/13/2018 in follow-up in the selective care unit. She is currently sitting up at the bedside. Having lunch. Denying any worsening shortness of breath cough or congestion. Maintaining O2 saturations in the low 90s on room air currently on 2 L/m per nasal cannula. She's afebrile. Hemodynamically stable. Blood culture positive for alphahemolytic streptococcus. Urine culture reveals no growth. White count 2.5. Hemoglobin 9.9. Creatinine 0.43. LDH 7932. IgG 1060, IgA 159, IgM 140. [place] screen was negative. Rheumatoid factor 8. Free 0.78. Free lambda 1.35. Remains on vancomycin, ceftriaxone and azithromycin. Continue bronchodilators. Remains on Tamiflu. Objective - Vital Signs Vital signs: Vital Signs Temp 98.0 F 06/13/18 11:59 Pulse 96 06/13/18 12:10 Resp 18 06/13/18 12:00 BP 136/90 06/13/18 11:59 Pulse Ox 91 L 06/13/18 11:59 Intake & Output 06/12/18 06/13/18 06/13/18 18:59 06:59 18:59 Intake Total 2180 520 Output Total 300 400 800 Balance 1880 -400 -280 Weight 116.1 kg Intake: IV 1820 Invasive Line 1 10 Invasive Line 2 10 Sodium Chloride 0.9% 1, 800 000 ml @ 100 mls/hr IV . Q10H JE[facility] PAUL Rx#:[id number] Sodium Chloride 0.9% 1, 1000 000 ml @ 999 mls/hr IV . Q1H1M ONE Rx#:[id number] Oral 360 520 Output: Urine 300 400 800 Other: Voiding Method Toilet Toilet Toilet Bedside Commode Bedside Commode Bedside Commode # Voids 2 1 # Bowel Movements 1 - Exam GENERAL EXAM: Alert, pleasant, 62-year-old white female on 2 L of oxygen with a pulse ox of 93% comfortable in no apparent distress. HEAD: Normocephalic/atraumatic. EYES: Normal reaction of pupils, equal size. Conjunctiva pink, sclera white. NOSE: Clear with pink turbinates. THROAT: No erythema or exudates. NECK: No masses, no JVD, no thyroid enlargement, no adenopathy. CHEST: No chest wall deformity. Symmetrical expansion. LUNGS: Equal air entry with wheeze breath sounds, patient of expiratory phase, rhonchi. CVS: Regular rate and rhythm, normal S1 and S2, no gallops, no murmurs, no rubs ABDOMEN: Soft, nontender. No hepatosplenomegaly, normal bowel sounds, no guarding or rigidity. EXTREMITIES: No clubbing, no edema, no cyanosis, 2+ pulses and upper and lower extremities. MUSCULOSKELETAL: Muscle strength and tone normal. SPINE: No scoliosis or deformity SKIN: No rashes CENTRAL NERVOUS SYSTEM: Alert and oriented -3. No focal deficits, tone is normal in all 4 extremities. PSYCHIATRIC: Alert and oriented -3. Appropriate affect. Intact judgment and insight. - Labs CBC & Chem 7: 06/13/18 06:06 06/13/18 06:06 Labs: Abnormal Lab Results - Last 24 Hours (Table) 06/11/18 06/12/18 06/12/18 Range/Units 14:28 06:19 15:00 WBC (3.8-10.6) k/uL RBC (3.80-5.40) m/uL Hgb (11.4-16.0) gm/dL Hct (34.0-46.0) % Plt Count (150-450) k/uL Blast Cells % 7 H* % Lymphocytes # (Manual) 0.91 L (1.0-4.8) k/uL Metamyelocytes # (Man) 0.14 H (0) k/uL Myelocytes # (Manual) 0.07 H (0) k/uL Blast Cells # (Man) 0.25 H (0) k/uL Nucleated RBCs 1 H (0-0) /100 WBC Pathologist Review See comment A ESR (0-20) mm/hr Carbon Dioxide (22-30) mmol/L Creatinine (0.52-1.04) mg/dL Glucose (74-99) mg/dL POC Glucose (mg/dL) (75-99) mg/dL Hemoglobin A1c (4.0-6.0) % Plasma Lactic Acid Matt (0.7-2.0) mmol/L Ferritin 880.6 H (10.0-291.0) ng/mL AST (14-36) U/L Lactate Dehydrogenase (313-618) U/L Total Protein (6.3-8.2) g/dL Total Protein (PEP) (6.2-8.2) g/dL Albumin (3.5-5.0) g/dL 06/12/18 06/12/18 06/12/18 Range/Units 15:00 16:12 16:49 WBC (3.8-10.6) k/uL RBC (3.80-5.40) m/uL Hgb (11.4-16.0) gm/dL Hct (34.0-46.0) % Plt Count (150-450) k/uL Blast Cells % % Lymphocytes # (Manual) (1.0-4.8) k/uL Metamyelocytes # (Man) (0) k/uL Myelocytes # (Manual) (0) k/uL Blast Cells # (Man) (0) k/uL Nucleated RBCs (0-0) /100 WBC Pathologist Review ESR 66 H (0-20) mm/hr Carbon Dioxide (22-30) mmol/L Creatinine (0.52-1.04) mg/dL Glucose (74-99) mg/dL POC Glucose (mg/dL) 154 H (75-99) mg/dL Hemoglobin A1c (4.0-6.0) % Plasma Lactic Acid Matt 6.7 H* (0.7-2.0) mmol/L Ferritin (10.0-291.0) ng/mL AST (14-36) U/L Lactate Dehydrogenase (313-618) U/L Total Protein (6.3-8.2) g/dL Total Protein (PEP) (6.2-8.2) g/dL Albumin (3.5-5.0) g/dL 06/12/18 06/13/18 06/13/18 Range/Units 20:16 06:06 06:06 WBC (3.8-10.6) k/uL RBC (3.80-5.40) m/uL Hgb (11.4-16.0) gm/dL Hct (34.0-46.0) % Plt Count (150-450) k/uL Blast Cells % % Lymphocytes # (Manual) (1.0-4.8) k/uL Metamyelocytes # (Man) (0) k/uL Myelocytes # (Manual) (0) k/uL Blast Cells # (Man) (0) k/uL Nucleated RBCs (0-0) /100 WBC Pathologist Review ESR (0-20) mm/hr Carbon Dioxide (22-30) mmol/L Creatinine (0.52-1.04) mg/dL Glucose (74-99) mg/dL POC Glucose (mg/dL) 124 H (75-99) mg/dL Hemoglobin A1c 7.1 H (4.0-6.0) % Plasma Lactic Acid Matt (0.7-2.0) mmol/L Ferritin (10.0-291.0) ng/mL AST (14-36) U/L Lactate Dehydrogenase 7932 H (313-618) U/L Total Protein (6.3-8.2) g/dL Total Protein (PEP) (6.2-8.2) g/dL Albumin (3.5-5.0) g/dL 06/13/18 06/13/18 06/13/18 Range/Units 06:06 06:06 06:06 WBC 3.5 L (3.8-10.6) k/uL RBC 3.25 L (3.80-5.40) m/uL Hgb 9.9 L (11.4-16.0) gm/dL Hct 30.7 L (34.0-46.0) % Plt Count 30 L (150-450) k/uL Blast Cells % % Lymphocytes # (Manual) (1.0-4.8) k/uL Metamyelocytes # (Man) (0) k/uL Myelocytes # (Manual) (0) k/uL Blast Cells # (Man) (0) k/uL Nucleated RBCs (0-0) /100 WBC Pathologist Review ESR (0-20) mm/hr Carbon Dioxide 31 H (22-30) mmol/L Creatinine 0.43 L (0.52-1.04) mg/dL Glucose 112 H (74-99) mg/dL POC Glucose (mg/dL) (75-99) mg/dL Hemoglobin A1c (4.0-6.0) % Plasma Lactic Acid Matt (0.7-2.0) mmol/L Ferritin (10.0-291.0) ng/mL AST 76 H (14-36) U/L Lactate Dehydrogenase (313-618) U/L Total Protein 5.5 L (6.3-8.2) g/dL Total Protein (PEP) 5.3 L (6.2-8.2) g/dL Albumin 2.8 L (3.5-5.0) g/dL 06/13/18 06/13/18 Range/Units 06:24 11:25 WBC (3.8-10.6) k/uL RBC (3.80-5.40) m/uL Hgb (11.4-16.0) gm/dL Hct (34.0-46.0) % Plt Count (150-450) k/uL Blast Cells % % Lymphocytes # (Manual) (1.0-4.8) k/uL Metamyelocytes # (Man) (0) k/uL Myelocytes # (Manual) (0) k/uL Blast Cells # (Man) (0) k/uL Nucleated RBCs (0-0) /100 WBC Pathologist Review ESR (0-20) mm/hr Carbon Dioxide (22-30) mmol/L Creatinine (0.52-1.04) mg/dL Glucose (74-99) mg/dL POC Glucose (mg/dL) 122 H 126 H (75-99) mg/dL Hemoglobin A1c (4.0-6.0) % Plasma Lactic Acid Mtat (0.7-2.0) mmol/L Ferritin (10.0-291.0) ng/mL AST (14-36) U/L Lactate Dehydrogenase (313-618) U/L Total Protein (6.3-8.2) g/dL Total Protein (PEP) (6.2-8.2) g/dL Albumin (3.5-5.0) g/dL Microbiology - Last 24 Hours (Table) 06/12/18 12:15 Blood Culture - Preliminary Blood No Growth after 24 hours 06/11/18 17:00 Blood Culture Gram Stain - Preliminary Blood Blood Culture - Preliminary Alpha Hemolytic Streptococcus 06/11/18 17:46 Urine Culture - Final Urine,Voided 06/11/18 14:28 Blood Culture - Preliminary Blood No Growth after 24 hours 06/11/18 17:00 Blood Culture - Final Blood Assessment and Plan Assessment: Assessment: #1. Acute on chronic hypoxemic respiratory failure related to acute exacerb ation of COPD. #2. Influenza A infection #3. Lactic acidosis, persistent, despite the fluid boluses, fluid resuscitated with 2 l of normal saline, and receiving maintenance IV fluids at 100 ML per hour. Initial lactic acid was 7.6, currently at 6.7. Denies any history of chronic liver or kidney disease, CT chest did not show any suspicious masses, B12 level was within normal limits. Patient did have significant diarrhea for last several days. No evidence of metabolic acidosis, no evidence of inadequate tissue perfusion #4. Positive blood cultures, Gram stain was positive for gram-positive cocci in chains, follow-up cultures are pending, final culture and sensitivity pending, patient is covered with a combination of Rocephin, Zithromax and vancomycin, ID service is following #5. Pancytopenia, white blood cell count was 3.1, hemoglobin was 11.0, and platelet count was 27 #6. COPD, patient is supposed to wear home oxygen #7. History of tracheostomy at age 2, questionable history of occult cord cancer #8. Chronic and ongoing nicotine dependence, patient carries over [id number] smoking history #9. Morbid obesity #10. Depression Plan The patient was seen and evaluated by Dr. Bryan. She is improved today as compared to yesterday. Requiring less FiO2 to maintain O2 saturations in the 90s. Remains on bronchodilators. She is on Tamiflu. She's on vancomycin and ceftriaxone and azithromycin. Infectious diseases on the case. We'll continue the current treatment plan. We'll continue to follow make recommendations based on her clinical status. I, the cosigning physician, performed a history & physical examination of the patient. Lungs sounds scattered rhonchi, end expiratory wheeze.. Maintaining good O2 saturations in the 90s on 2 L nasal cannula. I discussed the assessment and plan of care with my nurse practitioner, Alyson Valladares. I attest to the above note as dictated by her.
[2018-06-13 17:30] LABS: Glucose,Whole Blood 125 mg/dL (75-99)
[2018-06-13 20:36] LABS: Glucose,Whole Blood 150 mg/dL (75-99)
--- NOTE | 2018-06-13 21:44 | P.PN ---
Subjective Progress Note Date: 06/13/18 62-year-old female who relates she's been ill for about 3 weeks. She relates that she's had a respiratory illness associated with cough and some shortness of breath. She's had some fatigue and malaise associated with this also. However approximately 2 days before she presented emergency center she started to develop fever, the highest was 102. She had worsening shortness of breath and malaise and fatigue and constantly presented to the emergency center. At presentation the patient was obviously acutely ill. She was tachypneic and exhibited relative hypoxia. She subsequently has been admitted for treatment of her respiratory failure, potential pneumonia and acute illness. Testing is come back positive for influenza A. She did have a computed tomography scan of her chest that shows evidence of the enlarged pulmonary artery consistent with pulmonary hypertension without extensive pneumonic infiltration. The patient had 102 fever at the time of her presentation and felt poorly. Of interest she relates that she had gone to her doctor and demanded oxygen therapy, when she we nt to the pharmacy apparently there was some mixup with her oxygen therapy. Upon questioning of where she went to try to get oxygen, I inquired about DME versus pharmacy and testing for desaturation with activity, for which she had no knowledge. 06/13/2018 patient relates to feeling somewhat better today. Still somewhat anxious for discharge to home. Oxygen is being titrated and likely will be a rranged for home. Responding well to treatment of her influenza. Fever is improving. No other pathogens have been found so far. Objective - Vital Signs Vital signs: Vital Signs Temp 98.5 F 06/13/18 20:00 Pulse 107 H 06/13/18 20:00 Resp 18 06/13/18 20:00 BP 140/86 06/13/18 20:00 Pulse Ox 93 L 06/13/18 20:00 Intake & Output 06/13/18 06/13/18 06/14/18 06:59 18:59 06:59 Intake Total 1970 Output Total 400 1400 Balance -400 570 Weight 116.1 kg Intake: IV 550 Vancomycin 1,750 mg In 500 Sodium Chloride 0.9% 500 ml 500 ml @ 167 mls/hr IVPB Q12H JE[facility] PAUL Rx#: [id number] cefTRIAXone 1 gm In 50 Sodium Chloride 0.9% 50 ml @ 100 mls/hr IVPB Q24H JEAN PAUL Rx#:[id number] Oral 1420 Output: Urine 400 1400 Other: Voiding Method Toilet Toilet Toilet Bedside Commode Bedside Commode Bedside Commode # Voids 1 - Exam 62-year-old female who is still dyspneic but fever has improved HEENT: Anicteric conjunctiva are pale but moist nasal mucosa grossly intact wit hout significant lesions, there is no thrush. No oral lesions Neck: The neck is supple without significant lymphadenopathy or thyromegaly. Lungs: Symmetrical air entry is noted coarse expiratory wheezes at the lung lockhart no paige bronchial sounds normal dullness or egophony Heart: Regular rate and rhythm with an audible S1-S2, no S3 loud S4. There is no significant murmur click or rub, PMI was nondisplaced. Abdomen: Positive bowel sounds soft and nontender without palpable masses or organomegaly. There was no guarding or rebound. Extremities: The upper extremities have excellent pulses they are symmetric, no significant petechiae or telangiectasia. No splinter hemorrhages were noted. T he lower extremities are free from significant edema. The peripheral pulses were 2+ and symmetric. Neuro: Awake alert oriented to person place and time. There are no acute new gross focal sensory motor deficits. More comfortable today - Labs CBC & Chem 7: 06/13/18 06:06 06/13/18 06:06 Labs: Abnormal Lab Results - Last 24 Hours (Table) 06/12/18 06/13/18 06/13/18 Range/Units 15:00 06:06 06:06 WBC (3.8-10.6) k/uL RBC (3.80-5.40) m/uL Hgb (11.4-16.0) gm/dL Hct (34.0-46.0) % Plt Count (150-450) k/uL Blast Cells % 7 H* % Lymphocytes # (Manual) 0.91 L (1.0-4.8) k/uL Metamyelocytes # (Man) 0.14 H (0) k/uL Myelocytes # (Manual) 0.07 H (0) k/uL Blast Cells # (Man) 0.25 H (0) k/uL Nucleated RBCs 1 H (0-0) /100 WBC Carbon Dioxide (22-30) mmol/L Creatinine (0.52-1.04) mg/dL Glucose (74-99) mg/dL POC Glucose (mg/dL) (75-99) mg/dL Hemoglobin A1c 7.1 H (4.0-6.0) % AST (14-36) U/L Lactate Dehydrogenase 7932 H (313-618) U/L Total Protein (6.3-8.2) g/dL Total Protein (PEP) (6.2-8.2) g/dL Albumin (3.5-5.0) g/dL 06/13/18 06/13/18 06/13/18 Range/Units 06:06 06:06 06:06 WBC 3.5 L (3.8-10.6) k/uL RBC 3.25 L (3.80-5.40) m/uL Hgb 9.9 L (11.4-16.0) gm/dL Hct 30.7 L (34.0-46.0) % Plt Count 30 L (150-450) k/uL Blast Cells % % Lymphocytes # (Manual) (1.0-4.8) k/uL Metamyelocytes # (Man) (0) k/uL Myelocytes # (Manual) (0) k/uL Blast Cells # (Man) (0) k/uL Nucleated RBCs (0-0) /100 WBC Carbon Dioxide 31 H (22-30) mmol/L Creatinine 0.43 L (0.52-1.04) mg/dL Glucose 112 H (74-99) mg/dL POC Glucose (mg/dL) (75-99) mg/dL Hemoglobin A1c (4.0-6.0) % AST 76 H (14-36) U/L Lactate Dehydrogenase (313-618) U/L Total Protein 5.5 L (6.3-8.2) g/dL Total Protein (PEP) 5.3 L (6.2-8.2) g/dL Albumin 2.8 L (3.5-5.0) g/dL 06/13/18 06/13/18 06/13/18 Range/Units 06:24 11:25 17:11 WBC (3.8-10.6) k/uL RBC (3.80-5.40) m/uL Hgb (11.4-16.0) gm/dL Hct (34.0-46.0) % Plt Count (150-450) k/uL Blast Cells % % Lymphocytes # (Manual) (1.0-4.8) k/uL Metamyelocytes # (Man) (0) k/uL Myelocytes # (Manual) (0) k/uL Blast Cells # (Man) (0) k/uL Nucleated RBCs (0-0) /100 WBC Carbon Dioxide (22-30) mmol/L Creatinine (0.52-1.04) mg/dL Glucose (74-99) mg/dL POC Glucose (mg/dL) 122 H 126 H 125 H (75-99) mg/dL Hemoglobin A1c (4.0-6.0) % AST (14-36) U/L Lactate Dehydrogenase (313-618) U/L Total Protein (6.3-8.2) g/dL Total Protein (PEP) (6.2-8.2) g/dL Albumin (3.5-5.0) g/dL 06/13/18 Range/Units 20:33 WBC (3.8-10.6) k/uL RBC (3.80-5.40) m/uL Hgb (11.4-16.0) gm/dL Hct (34.0-46.0) % Plt Count (150-450) k/uL Blast Cells % % Lymphocytes # (Manual) (1.0-4.8) k/uL Metamyelocytes # (Man) (0) k/uL Myelocytes # (Manual) (0) k/uL Blast Cells # (Man) (0) k/uL Nucleated RBCs (0-0) /100 WBC Carbon Dioxide (22-30) mmol/L Creatinine (0.52-1.04) mg/dL Glucose (74-99) mg/dL POC Glucose (mg/dL) 150 H (75-99) mg/dL Hemoglobin A1c (4.0-6.0) % AST (14-36) U/L Lactate Dehydrogenase (313-618) U/L Total Protein (6.3-8.2) g/dL Total Protein (PEP) (6.2-8.2) g/dL Albumin (3.5-5.0) g/dL Microbiology - Last 24 Hours (Table) 06/12/18 15:00 Blood Culture - Preliminary Blood No Growth after 24 hours 06/11/18 14:28 Blood Culture - Preliminary Blood No Growth after 48 hours 06/12/18 12:15 Blood Culture - Preliminary Blood No Growth after 24 hours 06/11/18 17:00 Blood Culture Gram Stain - Preliminary Blood Blood Culture - Preliminary Alpha Hemolytic Streptococcus 06/11/18 17:46 Urine Culture - Final Urine,Voided Laboratory Results WBC 3.5 k/uL (3.8-10.6) L 06/13/18 06:06 RBC 3.25 m/uL (3.80-5.40) L 06/13/18 06:06 Hgb 9.9 gm/dL (11.4-16.0) L 06/13/18 06:06 Hct 30.7 % (34.0-46.0) L 06/13/18 06:06 MCV 94.3 fL (80.0-100.0) 06/13/18 06:06 MCH 30.4 pg (25.0-35.0) 06/13/18 06:06 MCHC 32.2 g/dL (31.0-37.0) 06/13/18 06:06 RDW 14.6 % (11.5-15.5) 06/13/18 06:06 Plt Count 30 k/uL (150-450) L 06/13/18 06:06 Neutrophils % Not Reportable 06/11/18 14:28 Neutrophils % (Manual) 52 % 06/12/18 15:00 Band Neutrophils % 11 % 06/12/18 15:00 Lymphocytes % Not Reportable 06/11/18 14:28 Lymphocytes % (Manual) 26 % 06/12/18 15:00 Monocytes % Not Reportable 06/11/18 14:28 Monocytes % (Manual) % 06/12/18 15:00 Eosinophils % Not Reportable 06/11/18 14:28 Eosinophils % (Manual) 1 % 06/11/18 14:28 Basophils % Not Reportable 06/11/18 14:28 Basophils % (Manual) Not Reportable 06/12/18 06:19 Metamyelocytes % 4 % 06/12/18 15:00 Myelocytes % 2 % 06/12/18 15:00 Blast Cells % 7 % H* 06/12/18 15:00 Neutrophils # Not Reportable 06/11/18 14:28 Neutrophils # (Manual) 2.20 k/uL (1.3-7.7) 06/12/18 15:00 Band Neutrophils # 0.04 k/uL 06/12/18 06:19 Lymphocytes # Not Reportable 06/11/18 14:28 Lymphocytes # (Manual) 0.91 k/uL (1.0-4.8) L 06/12/18 15:00 Monocytes # Not Reportable 06/11/18 14:28 Monocytes # (Manual) 0.14 k/uL (0-1.0) 06/12/18 15:00 Eosinophils # Not Reportable 06/11/18 14:28 Eosinophils # (Manual) 0.03 k/uL (0-0.7) 06/11/18 14:28 Basophils # Not Reportable 06/11/18 14:28 Basophils # (Manual) Not Reportable 06/12/18 06:19 Metamyelocytes # (Man) 0.14 k/uL (0) H 06/12/18 15:00 Myelocytes # (Manual) 0.07 k/uL (0) H 06/12/18 15:00 Blast Cells # (Man) 0.25 k/uL (0) H 06/12/18 15:00 Nucleated RBCs 1 /100 WBC (0-0) H 06/12/18 15:00 Manual Slide Review Performed 06/12/18 15:00 Pathologist Review See comment A 06/11/18 14:28 Toxic Vacuolation Present 06/12/18 15:00 Polychromasia Present 06/11/18 14:28 Poikilocytosis (manual Present 06/12/18 15:00 Rouleaux Present 06/11/18 14:28 ESR 66 mm/hr (0-20) H 06/12/18 15:00 Retic Count 0.5 % (0.5-2.0) 06/12/18 15:00 PT 10.9 sec (9.0-12.0) 06/12/18 06:00 INR 1.0 (<1.2) 06/12/18 06:00 APTT 23.2 sec (22.0-30.0) 06/12/18 06:00 Sodium 138 mmol/L (137-145) 06/13/18 06:06 Potassium 4.1 mmol/L (3.5-5.1) 06/13/18 06:06 Chloride 100 mmol/L (98-107) 06/13/18 06:06 Carbon Dioxide 31 mmol/L (22-30) H 06/13/18 06:06 Anion Gap 7 mmol/L 06/13/18 06:06 BUN 12 mg/dL (7-17) 06/13/18 06:06 Creatinine 0.43 mg/dL (0.52-1.04) L 06/13/18 06:06 Est GFR (CKD-EPI)AfAm >90 (>60 ml/min/1.73 sqM) 06/13/18 06:06 Est GFR (CKD-EPI)NonAf >90 (>60 ml/min/1.73 sqM) 06/13/18 06:06 Glucose 112 mg/dL (74-99) H 06/13/18 06:06 POC Glucose (mg/dL) 150 mg/dL (75-99) H 06/13/18 20:33 POC Glu Knockdown Man ID Rosanna Han 06/13/18 20:[address] Glu mg/dL 157 06/13/18 06:06 Hemoglobin A1c 7.1 % (4.0-6.0) H 06/13/18 06:06 Lactic Ac Sepsis Rflx Y 06/12/18 13:04 Plasma Lactic Acid Matt 6.7 mmol/L (0.7-2.0) H* 06/12/18 16:12 Calcium 8.7 mg/dL (8.4-10.2) 06/13/18 06:06 Phosphorus 3.2 mg/dL (2.5-4.5) 06/13/18 06:06 Magnesium 1.9 mg/dL (1.6-2.3) 06/13/18 06:06 Ferritin 880.6 ng/mL (10.0-291.0) H 06/12/18 06:19 Total Bilirubin 0.4 mg/dL (0.2-1.3) 06/13/18 06:06 AST 76 U/L (14-36) H 06/13/18 06:06 ALT 35 U/L (9-52) 06/13/18 06:06 Alkaline Phosphatase 93 U/L (38-126) 06/13/18 06:06 Lactate Dehydrogenase 7932 U/L (313-618) H 06/13/18 06:06 Total Protein 5.5 g/dL (6.3-8.2) L 06/13/18 06:06 Total Protein (PEP) 5.3 g/dL (6.2-8.2) L 06/13/18 06:06 Albumin 2.8 g/dL (3.5-5.0) L 06/13/18 06:06 Vitamin B12 289.0 pg/mL (200.0-944.0) 06/12/18 06:19 RBC Folate 321 ng/mL (280 - 791) 06/12/18 06:19 Urine Color Yellow 06/11/18 17:46 Urine Appearance Cloudy (Clear) H 06/11/18 17:46 Urine pH 6.0 (5.0-8.0) 06/11/18 17:46 Ur Specific Graham 1.009 (1.001-1.035) 06/11/18 17:46 Urine Protein Trace (Negative) H 06/11/18 17:46 Urine Glucose (UA) Negative (Negative) 06/11/18 17:46 Urine Ketones Negative (Negative) 06/11/18 17:46 Urine Blood Negative (Negative) 06/11/18 17:46 Urine Nitrite Negative (Negative) 06/11/18 17:46 Urine Bilirubin Negative (Negative) 06/11/18 17:46 Urine Urobilinogen <2.0 mg/dL (<2.0) 06/11/18 17:46 Ur Leukocyte Esterase Negative (Negative) 06/11/18 17:46 Urine RBC 3 /hpf (0-5) 06/11/18 17:46 Urine WBC 2 /hpf (0-5) 06/11/18 17:46 Ur Squamous Epith Cells 19 /hpf (0-4) H 06/11/18 17:46 Hyaline Casts 16 /lpf (0-2) H 06/11/18 17:46 Urine Mucus Rare /hpf (None) H 06/11/18 17:46 Urine Yeast (Budding) Few /hpf (None) H 06/11/18 17:46 IgG 1060.0 mg/dL (700.0-1600.0) 06/13/18 06:06 IgA 159.0 mg/dL (60.0-350.0) 06/13/18 06:06 IgM 140.0 mg/dL (40.0-280.0) 06/13/18 06:06 Rheumatoid Factor 8 IU/mL (0-15) 06/13/18 06:06 [facility] Screen NEGATIVE (NEGATIVE) 06/13/18 06:06 Free [place] LC, Quant 0.78 mg/dL (0.33-1.94) 06/13/18 06:06 Free Lambda LC, Quant 1.35 mg/dL (0.57-2.63) 06/13/18 06:06 Influenza Type A RNA Detected (Not Detectd) H 06/11/18 14:41 Influenza Type B (PCR) Not Detected (Not Detectd) 06/11/18 14:41 Microbiology 06/12/18 15:00 Blood Blood Culture - Preliminary No Growth after 24 hours 06/11/18 14:28 Blood Blood Culture - Preliminary No Growth after 48 hours 06/12/18 12:15 Blood Blood Culture - Preliminary No Growth after 24 hours 06/11/18 17:00 Blood Blood Culture Gram Stain - Preliminary 06/11/18 17:00 Blood Blood Culture - Preliminary Alpha Hemolytic Streptococcus 06/11/18 17:46 Urine,Voided Urine Culture - Final 06/11/18 17:00 Blood Blood Culture - Final Assessment and Plan (1) Influenza A Current Visit: Yes Status: Acute Code(s): J10.1 - FLU DUE TO OTH IDENT INFLUENZA VIRUS W OTH RESP MANIFEST SNOMED Code(s): 750273823 (2) Gram-positive cocci bacteremia Narrative/Plan: 62-year-old woman presents to Hospital from home with a several week history of illness, with significant cough and progressive dyspnea. She was ill enough that she stop smoking. She developed a febrile illness and felt considerably worse. Presents with fever, shortness of breath and malaise worsened she presents to Hospital for further intervention. Is noted there is evidence of influenza A and is being treated with Tamiflu appropriately. There is concern for also secondary pneumonia although the computed tomography scan does not show significant infiltrates. However is evidence the positive blood culture with gram-positive cocci. The echocardiogram is pending. The computed tomography scan does reveal evidence of likely pulmonary hypertension. Vancomycin is added until we have further information. Follow up blood cultures are already in process The patient voices that she wants to go home as soon as possible, we discussed that she is acutely ill, requiring oxygen therapy, and has bacteria growing in her blood and will need to have further information so a appropriate plan can be developed. Hopefully she will remain in hospital until information is available. 06/13/2018 Patient is feeling a bit better today. Fever has resolved. Seems to responding to current respiratory treatments, steroid therapy and antiviral therapy with Tamiflu. Still requiring relatively high amount of oxygen support. Is being evaluated for home O2 needs. The positive blood culture is now alphahemolytic strep and should be able to be transitioned to oral levofloxacin 500 mg a day for 7 days at her discharge given that this is likely related to underlying pulmonary infection. She'll complete her 10 doses of Tamiflu for her influenza. He has noted she is improving and will need evaluation about her pancytopenia after discharge and after her treatment of antibiotic therapy has completed, likely has a myelodysplastic syndrome. Antibody titers are pending, if IgG is markedly low may benefit from replacement therapy which can be arranged as an outpatient. Current Visit: Yes Status: Acute Code(s): R78.81 - BACTEREMIA SNOMED Code(s): 820290015747 (3) Fever Current Visit: Yes Status: Acute Code(s): R50.9 - FEVER, UNSPECIFIED SNOMED Code(s): 949859539 (4) Pancytopenia Current Visit: Yes Status: Acute Code(s): D61.818 - OTHER PANCYTOPENIA SNOMED Code(s): 043479855
--- NOTE | 2018-06-14 00:10 | P.PN ---
Subjective Progress Note Date: 06/13/18 The patient's fever pattern has improved. She states that she actually feels better, though she still gets short of breath easily with exertion. Endurance is improved. Objective - Vital Signs Vital signs: Vital Signs Temp 98.5 F 06/13/18 20:00 Pulse 101 H 06/13/18 22:11 Resp 18 06/13/18 20:00 BP 140/86 06/13/18 20:00 Pulse Ox 93 L 06/13/18 20:00 Intake & Output 06/13/18 06/13/18 06/14/18 06:59 18:59 06:59 Intake Total 1970 Output Total 400 1400 Balance -400 570 Weight 116.1 kg Intake: IV 550 Vancomycin 1,750 mg In 500 Sodium Chloride 0.9% 500 ml 500 ml @ 167 mls/hr IVPB Q12H [facility]UL Rx#: [id number] cefTRIAXone 1 gm In 50 Sodium Chloride 0.9% 50 ml @ 100 mls/hr IVPB Q24H JE[facility] PAUL Rx#:[id number] Oral 1420 Output: Urine 400 1400 Other: Voiding Method Toilet Toilet Toilet Bedside Commode Bedside Commode Bedside Commode # Voids 1 - Constitutional General appearance: Present: no acute distress - EENT Eyes: Present: EOMI ENT: Present: hearing grossly normal, normal oropharynx - Respiratory Respiratory: bilateral: diminished - Cardiovascular Rhythm: regular Heart sounds: normal: S1, S2 - Gastrointestinal General gastrointestinal: Present: normal bowel sounds, soft - Integumentary Integumentary: Present: normal - Neurologic Neurologic: Present: CNII-XII intact - Musculoskeletal Musculoskeletal: Present: generalized weakness, strength equal bilaterally - Psychiatric Psychiatric: Present: A&O x's 3, appropriate affect - Labs CBC & Chem 7: 06/13/18 06:06 06/13/18 06:06 Labs: Abnormal Lab Results - Last 24 Hours (Table) 06/12/18 06/13/18 06/13/18 Range/Units 15:00 06:06 06:06 WBC (3.8-10.6) k/uL RBC (3.80-5.40) m/uL Hgb (11.4-16.0) gm/dL Hct (34.0-46.0) % Plt Count (150-450) k/uL Blast Cells % 7 H* % Lymphocytes # (Manual) 0.91 L (1.0-4.8) k/uL Metamyelocytes # (Man) 0.14 H (0) k/uL Myelocytes # (Manual) 0.07 H (0) k/uL Blast Cells # (Man) 0.25 H (0) k/uL Nucleated RBCs 1 H (0-0) /100 WBC Carbon Dioxide (22-30) mmol/L Creatinine (0.52-1.04) mg/dL Glucose (74-99) mg/dL POC Glucose (mg/dL) (75-99) mg/dL Hemoglobin A1c 7.1 H (4.0-6.0) % AST (14-36) U/L Lactate Dehydrogenase 7932 H (313-618) U/L Total Protein (6.3-8.2) g/dL Total Protein (PEP) (6.2-8.2) g/dL Albumin (3.5-5.0) g/dL 06/13/18 06/13/18 06/13/18 Range/Units 06:06 06:06 06:06 WBC 3.5 L (3.8-10.6) k/uL RBC 3.25 L (3.80-5.40) m/uL Hgb 9.9 L (11.4-16.0) gm/dL Hct 30.7 L (34.0-46.0) % Plt Count 30 L (150-450) k/uL Blast Cells % % Lymphocytes # (Manual) (1.0-4.8) k/uL Metamyelocytes # (Man) (0) k/uL Myelocytes # (Manual) (0) k/uL Blast Cells # (Man) (0) k/uL Nucleated RBCs (0-0) /100 WBC Carbon Dioxide 31 H (22-30) mmol/L Creatinine 0.43 L (0.52-1.04) mg/dL Glucose 112 H (74-99) mg/dL POC Glucose (mg/dL) (75-99) mg/dL Hemoglobin A1c (4.0-6.0) % AST 76 H (14-36) U/L Lactate Dehydrogenase (313-618) U/L Total Protein 5.5 L (6.3-8.2) g/dL Total Protein (PEP) 5.3 L (6.2-8.2) g/dL Albumin 2.8 L (3.5-5.0) g/dL 06/13/18 06/13/18 06/13/18 Range/Units 06:24 11:25 17:11 WBC (3.8-10.6) k/uL RBC (3.80-5.40) m/uL Hgb (11.4-16.0) gm/dL Hct (34.0-46.0) % Plt Count (150-450) k/uL Blast Cells % % Lymphocytes # (Manual) (1.0-4.8) k/uL Metamyelocytes # (Man) (0) k/uL Myelocytes # (Manual) (0) k/uL Blast Cells # (Man) (0) k/uL Nucleated RBCs (0-0) /100 WBC Carbon Dioxide (22-30) mmol/L Creatinine (0.52-1.04) mg/dL Glucose (74-99) mg/dL POC Glucose (mg/dL) 122 H 126 H 125 H (75-99) mg/dL Hemoglobin A1c (4.0-6.0) % AST (14-36) U/L Lactate Dehydrogenase (313-618) U/L Total Protein (6.3-8.2) g/dL Total Protein (PEP) (6.2-8.2) g/dL Albumin (3.5-5.0) g/dL 06/13/18 Range/Units 20:33 WBC (3.8-10.6) k/uL RBC (3.80-5.40) m/uL Hgb (11.4-16.0) gm/dL Hct (34.0-46.0) % Plt Count (150-450) k/uL Blast Cells % % Lymphocytes # (Manual) (1.0-4.8) k/uL Metamyelocytes # (Man) (0) k/uL Myelocytes # (Manual) (0) k/uL Blast Cells # (Man) (0) k/uL Nucleated RBCs (0-0) /100 WBC Carbon Dioxide (22-30) mmol/L Creatinine (0.52-1.04) mg/dL Glucose (74-99) mg/dL POC Glucose (mg/dL) 150 H (75-99) mg/dL Hemoglobin A1c (4.0-6.0) % AST (14-36) U/L Lactate Dehydrogenase (313-618) U/L Total Protein (6.3-8.2) g/dL Total Protein (PEP) (6.2-8.2) g/dL Albumin (3.5-5.0) g/dL Microbiology - Last 24 Hours (Table) 06/11/18 17:00 Blood Culture Gram Stain - Final Blood Blood Culture - Final Alpha Hemolytic Streptococcus 06/12/18 15:00 Blood Culture - Preliminary Blood No Growth after 24 hours 06/11/18 14:28 Blood Culture - Preliminary Blood No Growth after 48 hours 06/12/18 12:15 Blood Culture - Preliminary Blood No Growth after 24 hours Assessment and Plan (1) Pancytopenia Narrative/Plan: The patient has a significant left shift. Given the clinical picture pancytopenia, and left shift, there is concern for primary marrow disorder. However this clinical picture can also occur with viral illness affecting the bone marrow. Pancytopenia workup has been ordered and is in process. Counts remain in a safe range, though there has been a drop in platelet counts. However the patient also has gram-positive bacteremia, in addition to influenza. Thus, while a primary marrow disorders is not ruled out, this could explain the current picture. The case was discussed in detail with internal medicine. We'll await results of pancytopenia workup. As counts are in a safe range, we will continue to monitor at this time with supportive care. Patient will be followed up closely. If blood counts do not improve, despite treatment of her infections, bone marrow will be performed Current Visit: Yes Status: Acute Code(s): D61.818 - OTHER PANCYTOPENIA SNOMED Code(s): 640034227 (2) Influenza A Narrative/Plan: patient is on Tamiflu. Continue treatment Current Visit: Yes Status: Acute Code(s): J10.1 - FLU DUE TO OTH IDENT INFLUENZA VIRUS W OTH RESP MANIFEST SNOMED Code(s): 408741822 (3) Gram-positive cocci bacteremia Narrative/Plan: This is a new diagnosis, with source not known at present. The patient has been started on IV antibiotics. Continue treatment per IM and other consultants. At this time discharge is being planned once bacteremias cleared, assuming the patient is otherwise stable/improving Current Visit: Yes Status: Acute Code(s): R78.81 - BACTEREMIA SNOMED Code(s): 719561941864
[2018-06-14 05:29] LABS: Mycoplasma IgM Antibody 0.52 INDEX (<=0.90)
[2018-06-14 05:52] LABS: Glucose,Whole Blood 85 mg/dL (75-99)
[2018-06-14] MEDS ORDERED: ACETAMINOPHEN TAB 325 MG TAB PO PRN (06:05)
[2018-06-14] MEDS: VANCOMYCIN 1,750 MG in SODIUM CHLORIDE 0.9% 500 ML 500 ML IVPB SCH (06:19)
[2018-06-14] MEDS: PANTOPRAZOLE 40 MG TABLET PO SCH (06:20)
[2018-06-14 06:31] LABS: HCT 29.5 % (34.0-46.0); HGB 10.2 gm/dL (11.4-16.0); MCH 32.5 pg (25.0-35.0); MCHC 34.5 g/dL (31.0-37.0); MCV 94.3 fL (80.0-100.0); Mean Platelet Volume 7.5; RBC 3.13 m/uL (3.80-5.40); RDW 14.7 % (11.5-15.5)
[2018-06-14 06:32] LABS: Anion Gap 7 mmol/L; Blood Urea Nitrogen 13 mg/dL (7-17); Calcium 8.6 mg/dL (8.4-10.2); Carbon Dioxide 34 mmol/L (22-30); Chloride 97 mmol/L (98-107); Glucose 80 mg/dL (74-99); Potassium 3.7 mmol/L (3.5-5.1); Sodium 138 mmol/L (137-145)
[2018-06-14 06:48] LABS: Platelet Count 31 k/uL (150-450)
[2018-06-14] MEDS: INSULIN ASPART (NovoLOG) 100 UNIT/ML VIAL SQ SCH ×2 (08:42→12:11)
[2018-06-14] MEDS: IPRATROPIUM-ALBUTEROL 3 ML NEB INHALATION SCH ×3 (08:49→15:59)
[2018-06-14] MEDS: OSELTAMIVIR 75 MG CAP PO SCH (08:49)
[2018-06-14] MEDS: FORMOTEROL FUMARATE 20 MCG/2 ML NEBU INHALATION SCH (08:49)
[2018-06-14] MEDS ORDERED: predniSONE 20 MG TAB PO SCH (09:00)
[2018-06-14 10:52] LABS: Albumin 2.55 g/dL (3.80-4.90); Gamma Globulin 1.05 g/dL (0.70-1.50)
[2018-06-14 11:57] LABS: Glucose,Whole Blood 98 mg/dL (75-99)
[2018-06-14 12:15] VITALS: BP 131/78; RESP 20; TEMP 97
--- NOTE | 2018-06-14 14:30 | P.DS ---
Providers Date of admission: 06/11/18 16:09 Expected date of discharge: 06/14/18 Attending physician: Sunita Cates MD Consults: 06/12/18 09:38 Consult Physician Routine Consulting Provider: Omari Bryan Consult Reason/Comments: AE COPD and Persistnet lactic acidosis Do you want consulting provider notified?: Yes 06/12/18 09:46 Consult Physician Routine Consulting Provider: Travis Olivier Consult Reason/Comments: pancytopenia Do you want consulting provider notified?: Yes 06/12/18 11:43 Consult Physician Routine Consulting Provider: Timothy Page Consult Reason/Comments: bacteremia Do you want consulting provider notified?: Yes Primary care physician: Stated None Hospital Course: The patient is a 62-year-old female with a PMH of COPD with chronic hypoxic re spiratory failure requiring home O2, GERD, and mitral valve prolapse presented to the ED for shortness of breath. In the ER she underwent an extensive evaluation. Initial chest x-ray showed hilar enlargement. Initial laboratory analysis showed leukopenia, anemia, and thrombocytopenia. She was also found to have a sodium of 132, lactic acid of 7.9, mildly elevated AST of 104. Urinalysis is negative. She was positive for influenza A. She was started on IV fluids, Tamiflu, steroids, bronchodilators Rocephin, and Zithromax. She was admitted to the selective care unit for further monitoring. Her lactic acid slowly improved. Her breathing was getting slightly better. Her CBC differential had be reviewed manually and was consistent with increased blast cells. She was also found to be severely thrombocytopenic. Dr. Olivier was consulted who recommends outpatient follow-up in 1 week for bone marrow. She was found to have alpha hemolytic strep bactermia and was seen by Dr. Page and can complete a course of oral fluoroquinolones. Patient was seen and examined on the day of discharge at the bedside. She notes that her symptoms improved significantly and she requested to be discharged. She denied fever, chills, nausea, vomiting, abdominal pain, headaches, or chest pain. The patient was advised to continue the Tamiflu for total of 10 doses and to continue to take oral levofloxacin 500 mg a day for total of 7 days. The patient was also advised on importance of follow-up for her bone marrow biopsy. Physical Examination General: Non-toxic, in no acute distress, appears stated age, normal weight HEENT: NC/AT, anicteric sclerae, moist conjunctiva, no lid-lag, PERRLA, oral thrush appreciated Cardiovascular: S1/S2 wnl, no murmurs, rubs, or gallops Lungs: Clear to auscultation, normal respiratory effort, no accessory muscle use Abdominal: Soft, non-tender, non-distended, no guarding, rebound, or rigidity Skin: Warm, dry Extremities: No edema or contractures Psychiatric: Alert and oriented to person, place and time, appropriate affect Neuro: CN II-XII grossly intact, Strength 5/5 in all 4 extremities, Speech intact, Sensation to light touch grossly intact throughout Discharge diagnosis: Pancytopenia, alpha hemolytic strep bacteremia, influenza A infection, COPD exacerbation, persistent lactic acid elevation, acute on chronic hypoxic respiratory failure, morbid obesity, tobacco abuse, GERD, hyperlipidemia, thrush A total of 50 minutes of time were spent preparing this complex discharge summary. Patient Condition at Discharge: Good Plan - Discharge Summary Discharge Rx Participant: No New Discharge Prescriptions: New Levofloxacin [Levaquin] 500 mg PO DAILY #7 tab Clotrimazole [place] [Mycelex Dalton] 10 mg MUCOUS MEM 5XD 5 Days dalton Oseltamivir [Tamiflu] 75 mg PO BID #4 cap Continue Glycopyrrolate/Formoterol Fum [Bevespi Aerosphere Inhaler] 2 puff INHALATION RT-BID Fluticasone Nasal [place] [Flonase Nasal [place]] 2 spr EA NOSTRIL DAILY Albuterol Inhaler [Ventolin Hfa Inhaler] 2 puff INHALATION RT-Q6H PRN PRN Reason: Shortness Of Breath HYDROcodone/APAP 10-325MG [[place] 10-325] 1 tab PO BID PRN PRN Reason: Pain Discontinued Doxycycline [Vibramycin] 100 mg PO BID Discharge Medication List Albuterol Inhaler [Ventolin Hfa Inhaler] 2 puff INHALATION RT-Q6H PRN 06/11/18 [History] Fluticasone Nasal [place] [Flonase Nasal [place]] 2 spr EA NOSTRIL DAILY 06/11/18 [History] Glycopyrrolate/Formoterol Fum [Bevespi Aerosphere Inhaler] 2 puff INHALATION RT- BID 06/11/18 [History] HYDROcodone/APAP 10-325MG [[place] 10-325] 1 tab PO BID PRN 06/11/18 [History] Clotrimazole [place] [Mycelex [place]] 10 mg MUCOUS MEM 5XD 5 Days dal[place] 06/14/18 [Rx] Levofloxacin [Levaquin] 500 mg PO DAILY #7 tab 06/14/18 [Rx] Oseltamivir [Tamiflu] 75 mg PO BID #4 cap 06/14/18 [Rx] Follow up Appointment(s)/Referral(s): None,Stated [Primary Care Provider] - 1-2 days [facility] - Travis Olivier MD [STAFF PHYSICIAN] - 1 Week Patient Instructions/Handouts: Influenza (DC), COPD (Chronic Obstructive Pulmonary Disease) (DC) Discharge Disposition: HOME SELF-CARE
[2018-06-14] MEDS ORDERED: LEVOFLOXACIN 750 MG TAB PO SCH (15:00)
--- NOTE | 2018-06-14 15:05 | P.PN ---
Subjective Progress Note Date: 06/14/18 62-year-old female who relates she's been ill for about 3 weeks. She relates that she's had a respiratory illness associated with cough and some shortness of breath. She's had some fatigue and malaise associated with this also. However approximately 2 days before she presented emergency center she started to develop fever, the highest was 102. She had worsening shortness of breath and malaise and fatigue and constantly presented to the emergency center. At presentation the patient was obviously acutely ill. She was tachypneic and exhibited relative hypoxia. She subsequently has been admitted for treatment of her respiratory failure, potential pneumonia and acute illness. Testing is come back positive for influenza A. She did have a computed tomography scan of her chest that shows evidence of the enlarged pulmonary artery consistent with pulmonary hypertension without extensive pneumonic infiltration. The patient had 102 fever at the time of her presentation and felt poorly. Of interest she relates that she had gone to her doctor and demanded oxygen therapy, when she we nt to the pharmacy apparently there was some mixup with her oxygen therapy. Upon questioning of where she went to try to get oxygen, I inquired about DME versus pharmacy and testing for desaturation with activity, for which she had no knowledge. 06/13/2018 patient relates to feeling somewhat better today. Still somewhat anxious for discharge to home. Oxygen is being titrated and likely will be a rranged for home. Responding well to treatment of her influenza. Fever is improving. No other pathogens have been found so far. 06/14/2018 patient is now further improve. With oxygen therapy she has stable O2 sat and is without significant dyspnea until she has exertion. She definitely improved since admission. Tolerating the treatment of her influenza well is also being treated for the also hemolytic streptococcus bacteremia likely from a pulmonary source although no significant or severe pneumonia was found. She is anxious for discharge to home. Objective - Vital Signs Vital signs: Vital Signs Temp 97.0 F L 06/14/18 12:00 Pulse 96 06/14/18 12:39 Resp 20 06/14/18 12:00 BP 131/78 06/14/18 12:00 Pulse Ox 95 06/14/18 12:00 Intake & Output 06/13/18 06/14/18 06/14/18 18:59 06:59 18:59 Intake Total 1970 200 Output Total 1400 600 Balance 570 -400 Weight 117.3 kg Intake: IV 550 Vancomycin 1,750 mg In 500 Sodium Chloride 0.9% 500 ml 500 ml @ 167 mls/hr IVPB Q12H [facility] Rx#: [id number] cefTRIAXone 1 gm In 50 Sodium Chloride 0.9% 50 ml @ 100 mls/hr IVPB Q24H [facility] Rx#:[id number] Oral 1420 200 Output: Urine 1400 600 Other: Voiding Method Toilet Toilet Bedside Commode Bedside Commode # Voids 1 1 - Exam 62-year-old female who is still dyspneic but fever has improved HEENT: Anicteric conjunctiva are pale but moist nasal mucosa grossly intact without significant lesions. Dentition is poor but there is significant thrush Neck: The neck is supple without significant lymphadenopathy or thyromegaly. Lungs: Symmetrical air entry is noted coarse expiratory wheezes at the lung lockhart no paige bronchial sounds normal dullness or egophony Heart: Regular rate and rhythm with an audible S1-S2, no S3 loud S4. There is no significant murmur click or rub, PMI was nondisplaced. Abdomen: Positive bowel sounds soft and nontender without palpable masses or organomegaly. There was no guarding or rebound. Extremities: The upper extremities have excellent pulses they are symmetric, no significant petechiae or telangiectasia. No splinter hemorrhages were noted. The lower extremities are free from significant edema. The peripheral pulses were 2+ and symmetric. Neuro: Awake alert oriented to person place and time. There are no acute new gross focal sensory motor deficits. More comfortable today - Labs CBC & Chem 7: 06/14/18 06:03 06/14/18 06:03 Labs: Abnormal Lab Results - Last 24 Hours (Table) 05/14/18 06/13/18 06/13/18 Range/Units 16:40 06:06 17:11 WBC (3.8-10.6) k/uL RBC (3.80-5.40) m/uL Hgb (11.4-16.0) gm/dL Hct (34.0-46.0) % Plt Count (150-450) k/uL Chloride (98-107) mmol/L Carbon Dioxide (22-30) mmol/L Creatinine (0.52-1.04) mg/dL POC Glucose (mg/dL) 125 H (75-99) mg/dL Albumin (PEP) 2.55 L (3.80-4.90) g/dL Beta Globulins 0.59 L (0.60-1.30) g/dL Mycoplasma pneumon IgG 1.36 H (<=0.90) INDEX 06/13/18 06/14/18 06/14/18 Range/Units 20:33 06:03 06:03 WBC 3.0 L (3.8-10.6) k/uL RBC 3.13 L (3.80-5.40) m/uL Hgb 10.2 L (11.4-16.0) gm/dL Hct 29.5 L (34.0-46.0) % Plt Count 31 L (150-450) k/uL Chloride 97 L (98-107) mmol/L Carbon Dioxide 34 H (22-30) mmol/L Creatinine 0.45 L (0.52-1.04) mg/dL POC Glucose (mg/dL) 150 H (75-99) mg/dL Albumin (PEP) (3.80-4.90) g/dL Beta Globulins (0.60-1.30) g/dL Mycoplasma pneumon IgG (<=0.90) INDEX Microbiology - Last 24 Hours (Table) 06/12/18 12:15 Blood Culture - Preliminary Blood No Growth after 48 hours 06/11/18 17:00 Blood Culture Gram Stain - Final Blood Blood Culture - Final Alpha Hemolytic Streptococcus 06/12/18 15:00 Blood Culture - Preliminary Blood No Growth after 24 hours 06/11/18 14:28 Blood Culture - Preliminary Blood No Growth after 48 hours Laboratory Results WBC 3.0 k/uL (3.8-10.6) L 06/14/18 06:03 RBC 3.13 m/uL (3.80-5.40) L 06/14/18 06:03 Hgb 10.2 gm/dL (11.4-16.0) L 06/14/18 06:03 Hct 29.5 % (34.0-46.0) L 06/14/18 06:03 MCV 94.3 fL (80.0-100.0) 06/14/18 06:03 MCH 32.5 pg (25.0-35.0) 06/14/18 06:03 MCHC 34.5 g/dL (31.0-37.0) 06/14/18 06:03 RDW 14.7 % (11.5-15.5) 06/14/18 06:03 Plt Count 31 k/uL (150-450) L 06/14/18 06:03 Neutrophils % Not Reportable 06/11/18 14:28 Neutrophils % (Manual) 52 % 06/12/18 15:00 Band Neutrophils % 11 % 06/12/18 15:00 Lymphocytes % Not Reportable 06/11/18 14:28 Lymphocytes % (Manual) 26 % 06/12/18 15:00 Monocytes % Not Reportable 06/11/18 14:28 Monocytes % (Manual) % 06/12/18 15:00 Eosinophils % Not Reportable 06/11/18 14:28 Eosinophils % (Manual) 1 % 06/11/18 14:28 Basophils % Not Reportable 06/11/18 14:28 Basophils % (Manual) Not Reportable 06/12/18 06:19 Metamyelocytes % 4 % 06/12/18 15:00 Myelocytes % 2 % 06/12/18 15:00 Blast Cells % 7 % H* 06/12/18 15:00 Neutrophils # Not Reportable 06/11/18 14:28 Neutrophils # (Manual) 2.20 k/uL (1.3-7.7) 06/12/18 15:00 Band Neutrophils # 0.04 k/uL 06/12/18 06:19 Lymphocytes # Not Reportable 06/11/18 14:28 Lymphocytes # (Manual) 0.91 k/uL (1.0-4.8) L 06/12/18 15:00 Monocytes # Not Reportable 06/11/18 14:28 Monocytes # (Manual) 0.14 k/uL (0-1.0) 06/12/18 15:00 Eosinophils # Not Reportable 06/11/18 14:28 Eosinophils # (Manual) 0.03 k/uL (0-0.7) 06/11/18 14:28 Basophils # Not Reportable 06/11/18 14:28 Basophils # (Manual) Not Reportable 06/12/18 06:19 Metamyelocytes # (Man) 0.14 k/uL (0) H 06/12/18 15:00 Myelocytes # (Manual) 0.07 k/uL (0) H 06/12/18 15:00 Blast Cells # (Man) 0.25 k/uL (0) H 06/12/18 15:00 Nucleated RBCs 1 /100 WBC (0-0) H 06/12/18 15:00 Manual Slide Review Performed 06/12/18 15:00 Pathologist Review See comment A 06/11/18 14:28 Toxic Vacuolation Present 06/12/18 15:00 Polychromasia Present 06/11/18 14:28 Poikilocytosis (manual Present 06/12/18 15:00 Rouleaux Present 06/11/18 14:28 ESR 66 mm/hr (0-20) H 06/12/18 15:00 Retic Count 0.5 % (0.5-2.0) 06/12/18 15:00 PT 10.9 sec (9.0-12.0) 06/12/18 06:00 INR 1.0 (<1.2) 06/12/18 06:00 APTT 23.2 sec (22.0-30.0) 06/12/18 06:00 Sodium 138 mmol/L (137-145) 06/14/18 06:03 Potassium 3.7 mmol/L (3.5-5.1) 06/14/18 06:03 Chloride 97 mmol/L (98-107) L 06/14/18 06:03 Carbon Dioxide 34 mmol/L (22-30) H 06/14/18 06:03 Anion Gap 7 mmol/L 06/14/18 06:03 BUN 13 mg/dL (7-17) 06/14/18 06:03 Creatinine 0.45 mg/dL (0.52-1.04) L 06/14/18 06:03 Est GFR (CKD-EPI)AfAm >90 (>60 ml/min/1.73 sqM) 06/14/18 06:03 Est GFR (CKD-EPI)NonAf >90 (>60 ml/min/1.73 sqM) 06/14/18 06:03 Glucose 80 mg/dL (74-99) 06/14/18 06:03 POC Glucose (mg/dL) 98 mg/dL (75-99) 06/14/18 11:35 POC Glu Manager Estate ID Jeni Bennett 06/14/18 11:[address] Glu mg/dL 157 03/21/19 06:06 Hemoglobin A1c 7.1 % (4.0-6.0) H 06/13/18 06:06 Lactic Ac Sepsis Rflx Y 06/12/18 13:04 Plasma Lactic Acid Matt 6.7 mmol/L (0.7-2.0) H* 06/12/18 16:12 Calcium 8.6 mg/dL (8.4-10.2) 06/14/18 06:03 Phosphorus 3.2 mg/dL (2.5-4.5) 06/13/18 06:06 Magnesium 1.9 mg/dL (1.6-2.3) 06/13/18 06:06 Ferritin 880.6 ng/mL (10.0-291.0) H 06/12/18 06:19 Total Bilirubin 0.4 mg/dL (0.2-1.3) 06/13/18 06:06 AST 76 U/L (14-36) H 06/13/18 06:06 ALT 35 U/L (9-52) 06/13/18 06:06 Alkaline Phosphatase 93 U/L (38-126) 06/13/18 06:06 Lactate Dehydrogenase 7932 U/L (313-618) H 06/13/18 06:06 Total Protein 5.5 g/dL (6.3-8.2) L 06/13/18 06:06 Total Protein (PEP) 5.3 g/dL (6.2-8.2) L 06/13/18 06:06 Albumin 2.8 g/dL (3.5-5.0) L 06/13/18 06:06 Albumin (PEP) 2.55 g/dL (3.80-4.90) L 06/13/18 06:06 Teyed-5-Rhvfddwut 0.34 g/dL (0.10-0.40) 06/13/18 06:06 Refrk-1-Mgvkrfqix 0.76 g/dL (0.60-1.00) 06/13/18 06:06 Beta Globulins 0.59 g/dL (0.60-1.30) L 06/13/18 06:06 Gamma Globulins 1.05 g/dL (0.70-1.50) 06/13/18 06:06 PEP Interpretation SEE NOTE 06/13/18 06:06 Vitamin B12 289.0 pg/mL (200.0-944.0) 06/12/18 06:19 RBC Folate 321 ng/mL (280 - 791) 06/12/18 06:19 Urine Color Yellow 06/11/18 17:46 Urine Appearance Cloudy (Clear) H 06/11/18 17:46 Urine pH 6.0 (5.0-8.0) 06/11/18 17:46 Ur Specific [place] 1.009 (1.001-1.035) 06/11/18 17:46 Urine Protein Trace (Negative) H 06/11/18 17:46 Urine Glucose (UA) Negative (Negative) 06/11/18 17:46 Urine Ketones Negative (Negative) 06/11/18 17:46 Urine Blood Negative (Negative) 06/11/18 17:46 Urine Nitrite Negative (Negative) 06/11/18 17:46 Urine Bilirubin Negative (Negative) 06/11/18 17:46 Urine Urobilinogen <2.0 mg/dL (<2.0) 06/11/18 17:46 Ur Leukocyte Esterase Negative (Negative) 06/11/18 17:46 Urine RBC 3 /hpf (0-5) 06/11/18 17:46 Urine WBC 2 /hpf (0-5) 06/11/18 17:46 Ur Squamous Epith Cells 19 /hpf (0-4) H 06/11/18 17:46 Hyaline Casts 16 /lpf (0-2) H 06/11/18 17:46 Urine Mucus Rare /hpf (None) H 06/11/18 17:46 Urine Yeast (Budding) Few /hpf (None) H 06/11/18 17:46 IgG 1060.0 mg/dL (700.0-1600.0) 06/13/18 06:06 IgA 159.0 mg/dL (60.0-350.0) 06/13/18 06:06 IgM 140.0 mg/dL (40.0-280.0) 06/13/18 06:06 Serum SAYRA Interpret SEE NOTE 06/13/18 06:06 Rheumatoid Factor 8 IU/mL (0-15) 06/13/18 06:06 NATIVIDAD Screen NEGATIVE (NEGATIVE) 06/13/18 06:06 Free [place] LC, Quant 0.78 mg/dL (0.33-1.94) 06/13/18 06:06 Free Lambda LC, Quant 1.35 mg/dL (0.57-2.63) 06/13/18 06:06 Influenza Type A RNA Detected (Not Detectd) H 06/11/18 14:41 Influenza Type B (PCR) Not Detected (Not Detectd) 06/11/18 14:41 Urine Legionella Ag Not detected (Not detected) 06/12/18 23:10 Mycoplasma pneumon IgG 1.36 INDEX (<=0.90) H 05/14/18 16:40 Mycoplasma pneumon IgM 0.52 INDEX (<=0.90) 05/14/18 16:40 Microbiology 06/12/18 12:15 Blood Blood Culture - Preliminary No Growth after 48 hours 06/11/18 17:00 Blood Blood Culture Gram Stain - Final 06/11/18 17:00 Blood Blood Culture - Final Alpha Hemolytic Streptococcus 06/12/18 15:00 Blood Blood Culture - Preliminary No Growth after 24 hours 06/11/18 14:28 Blood Blood Culture - Preliminary No Growth after 48 hours 06/11/18 17:46 Urine,Voided Urine Culture - Final 06/11/18 17:00 Blood Blood Culture - Final Assessment and Plan (1) Influenza A Current Visit: Yes Status: Acute Code(s): J10.1 - FLU DUE TO OTH IDENT INFLUENZA VIRUS W OTH RESP MANIFEST SNOMED Code(s): 575913816 (2) Gram-positive cocci bacteremia Narrative/Plan: 62-year-old woman presents to Hospital from home with a several week history of illness, with significant cough and progressive dyspnea. She was ill enough that she stop smoking. She developed a febrile illness and felt considerably worse. Presents with fever, shortness of breath and malaise worsened she presents to Hospital for further intervention. Is noted there is evidence of influenza A and is being treated with Tamiflu appropriately. There is concern for also secondary pneumonia although the computed tomography scan does not show significant infiltrates. However is evidence the positive blood culture with gram-positive cocci. The echocardiogram is pending. The computed tomography scan does reveal evidence of likely pulmonary hypertension. Vancomycin is added until we have further information. Follow up blood cultures are already in process The patient voices that she wants to go home as soon as possible, we discussed that she is acutely ill, requiring oxygen therapy, and has bacteria growing in her blood and will need to have further information so a appropriate plan can be developed. Hopefully she will remain in hospital until information is available. 06/13/2018 Patient is feeling a bit better today. Fever has resolved. Seems to responding to current respiratory treatments, steroid therapy and antiviral therapy with Tamiflu. Still requiring relatively high amount of oxygen support. Is being evaluated for home O2 needs. The positive blood culture is now alphahemolytic strep and should be able to be transitioned to oral levofloxacin 750 mg a day for 10 days at her discharge given that this is likely related to underlying pulmonary infection. She'll complete her 10 doses of Tamiflu for her influenza. He has noted she is improving and will need evaluation about her pancytopenia after discharge and after her treatment of antibiotic therapy has completed, likely has a myelodysplastic syndrome. Antibody titers are pending, if IgG is markedly low may benefit from replacement therapy which can be arr anged as an outpatient. 06/14/2018 patient feeling considerably better today. She is responding well to the treatment of her influenza with Tamiflu and her bacteremia with the operative extremity. She will transition to oral Levaquin for now to complete her course of treatment for 10 days the outpatient setting for the bacteremia. She should complete her 10 total doses of Tamiflu also. She'll follow up with her luster repairer and primary care physician. She has evidence of significant pancytopenia and will absolutely to follow-up with hematology/oncology so with follow-up she can have her bone marrow aspiration if needed. Smear appears to show evidence of an MDS. There is evidence of thrush and Mycelex has been requested Current Visit: Yes Status: Acute Code(s): R78.81 - BACTEREMIA SNOMED C ode(s): 084704319533 (3) Fever Current Visit: Yes Status: Acute Code(s): R50.9 - FEVER, UNSPECIFIED SNOMED Code(s): 084430936 (4) Pancytopenia Current Visit: Yes Status: Acute Code(s): D61.818 - OTHER PANCYTOPENIA SNOMED Code(s): 837748874
[2018-06-14 16:00] VITALS: PULSE 92
[2018-06-14] MEDS ORDERED: CLOTRIMAZOLE TROCHE 10 MG TROCHE MUCOUS MEM SCH (16:00)
--- NOTE | 2018-06-14 16:24 | P.PN ---
Subjective Progress Note Date: 06/14/18 Principal diagnosis: Acute on chronic hypoxemic respiratory failure secondary to an acute exacerbation of chronic obstructive pulmonary disease. Complicated by influenza A. This is 62-year-old white female patient of Dr. Elam in [place], was brought to the hospital by an ambulance to 2 week history of cough, difficulty breathing, intermittent fevers. Cough was occasionally productive, with production of clear and white sputum. Denied any chest pain, complained of inc reasing fatigue, and worsening shortness of breath. Denies any sick contacts. No nausea, vomiting. Did have significant diarrhea over the last several days, 5-6 episodes a day. Had decreased oral intake. Chest x-ray showed right hilar enlargement or could relate to adenopathy, mass or pulmonary arterial hypertension, no focal consolidation but there was central peribronchial interstitial prominence could suggest bronchitis or atypical pneumonitis. Blood work showed pancytopenia, white blood cell count of 3.1, hemoglobin of 11.0, platelet count was only 27, 7% blasts, INR was within normal limits at 1.1, sodium is 132, potassium is 3.7, chloride was 93, CO2 is 27, BUN was 13, creatinine is 0.47, lactic acid has been significantly elevated at 7.9, and has stayed elevated despite fluid resuscitation at 6.7, AST was 104, the rest of the LFTs were within normal limits, influenza screen was positive for influenza A. patient was started on Tamiflu, Zithromax and Rocephin, she was given vancomycin due to positive blood cultures. Blood culture Gram stain showed gram-positive cocci in chains. Echocardiogram has been ordered and is pending at this time. Chest CT showed enlarged pulmonary arteries, cardiomegaly without suspicious acute infiltrates, no suspicious masses or adenopathy. Medical history is significant for COPD, and patient states she supposed to have home oxygen, but due to some paperwork mixup she was not able to get home oxygen, and some inhalers include that of Bevespi, Ventolin and albuterol nebulized treatment. Patient denies any history of hypertension, denies history of diabetes. 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 Patient apparently had a tracheostomy at the time. Prior history of eye surgery. History of depression, patient is a current smoker, 40+-pack-year history of smoking, a pack a day, she quit when she started getting sick 2 weeks ago. Also gives a history of 4 nodules removed from her neck, is old healed scar above the old tracheostomy site. She is somewhat of a poor historian. During our evaluation patient no acute distress, she still on 5 L of oxygen and her pulse ox is around 91%. Lung sounds are diminished, with the minimal wheezing, and rhonchi patient has a loose congested cough. The patient is seen today 06/13/2018 in follow-up in the selective care unit. She is currently sitting up at the bedside. Having lunch. Denying any worsening shortness of breath cough or congestion. Maintaining O2 saturations in the low 90s on room air currently on 2 L/m per nasal cannula. She's afebrile. Hemodynamically stable. Blood culture positive for alphahemolytic streptococcus. Urine culture reveals no growth. White count 2.5. Hemoglobin 9.9. Creatinine 0.43. LDH 7932. IgG 1060, IgA 159, IgM 140. [facility] screen was negative. Rheumatoid factor 8. Free 0.78. Free lambda 1.35. Remains on vancomycin, ceftriaxone and azithromycin. Continue bronchodilators. Remains on Tamiflu. Patient is seen today 06/14/2017 in follow-up on the selective care unit. She is awake and alert in no acute distress. She is maintaining good O2 saturations in the 90s on 2 L/m per nasal cannula. The plan is to be home with home oxygen. Cultures were positive for alphahemolytic streptococcus. ID is on the case. White count 3.0. Hemoglobin 10.2. Creatinine 0.45. She is currently on vancomycin and Levaquin. Still on Tamiflu. She is hoping to go home today. Objective - Vital Signs Vital signs: Vital Signs Temp 97.0 F L 06/14/18 12:00 Pulse 92 06/14/18 16:05 Resp 20 06/14/18 12:00 BP 131/78 06/14/18 12:00 Pulse Ox 95 06/14/18 12:00 Intake & Output 06/13/18 06/14/18 06/14/18 18:59 06:59 18:59 Intake Total 1970 200 Output Total 1400 600 Balance 570 -400 Weight 117.3 kg Intake: IV 550 Vancomycin 1,750 mg In 500 Sodium Chloride 0.9% 500 ml 500 ml @ 167 mls/hr IVPB Q12H JEAN PAUL Rx#: [id number] cefTRIAXone 1 gm In 50 Sodium Chloride 0.9% 50 ml @ 100 mls/hr IVPB Q24H JEAN PAUL Rx#:[id number] Oral 1420 200 Output: Urine 1400 600 Other: Voiding Method Toilet Toilet Bedside Commode Bedside Commode # Voids 1 1 - Exam GENERAL EXAM: Alert, 62-year-old white female on 2 L of oxygen with a pulse ox of 93% comfortable in no apparent distress. HEAD: Normocephalic/atraumatic. EYES: Normal reaction of pupils, equal size. Conjunctiva pink, sclera white. NOSE: Clear with pink turbinates. THROAT: No erythema or exudates. NECK: No masses, no JVD, no thyroid enlargement, no adenopathy. CHEST: No chest wall deformity. Symmetrical expansion. LUNGS: Equal air entry with wheeze breath sounds, patient of expiratory phase, rhonchi. CVS: Regular rate and rhythm, normal S1 and S2, no gallops, no murmurs, no rubs ABDOMEN: Soft, nontender. No hepatosplenomegaly, normal bowel sounds, no guarding or rigidity. EXTREMITIES: No clubbing, no edema, no cyanosis, 2+ pulses and upper and lower extremities. MUSCULOSKELETAL: Muscle strength and tone normal. SPINE: No scoliosis or deformity SKIN: No rashes CENTRAL NERVOUS SYSTEM: Alert and oriented -3. No focal deficits, tone is normal in all 4 extremities. PSYCHIATRIC: Alert and oriented -3. Appropriate affect. Intact judgment and insight. - Labs CBC & Chem 7: 06/14/18 06:03 06/14/18 06:03 Labs: Abnormal Lab Results - Last 24 Hours (Table) 05/14/18 06/13/18 06/13/18 Range/Units 16:40 06:06 17:11 WBC (3.8-10.6) k/uL RBC (3.80-5.40) m/uL Hgb (11.4-16.0) gm/dL Hct (34.0-46.0) % Plt Count (150-450) k/uL Chloride (98-107) mmol/L Carbon Dioxide (22-30) mmol/L Creatinine (0.52-1.04) mg/dL POC Glucose (mg/dL) 125 H (75-99) mg/dL Albumin (PEP) 2.55 L (3.80-4.90) g/dL Beta Globulins 0.59 L (0.60-1.30) g/dL Mycoplasma pneumon IgG 1.36 H (<=0.90) INDEX 06/13/18 06/14/18 06/14/18 Range/Units 20:33 06:03 06:03 WBC 3.0 L (3.8-10.6) k/uL RBC 3.13 L (3.80-5.40) m/uL Hgb 10.2 L (11.4-16.0) gm/dL Hct 29.5 L (34.0-46.0) % Plt Count 31 L (150-450) k/uL Chloride 97 L (98-107) mmol/L Carbon Dioxide 34 H (22-30) mmol/L Creatinine 0.45 L (0.52-1.04) mg/dL POC Glucose (mg/dL) 150 H (75-99) mg/dL Albumin (PEP) (3.80-4.90) g/dL Beta Globulins (0.60-1.30) g/dL Mycoplasma pneumon IgG (<=0.90) INDEX Microbiology - Last 24 Hours (Table) 06/12/18 12:15 Blood Culture - Preliminary Blood No Growth after 48 hours 06/11/18 17:00 Blood Culture Gram Stain - Final Blood Blood Culture - Final Alpha Hemolytic Streptococcus 06/12/18 15:00 Blood Culture - Preliminary Blood No Growth after 24 hours 06/11/18 14:28 Blood Culture - Preliminary Blood No Growth after 48 hours Assessment and Plan Assessment: Assessment: #1. Acute on chronic hypoxemic respiratory failure related to acute exacerbation of COPD. #2. Influenza A infection #3. Lactic acidosis, persistent, despite the fluid boluses, fluid resuscitated with 2 l of normal saline, and receiving maintenance IV fluids at 100 ML per hour. Initial lactic acid was 7.6, currently at 6.7. Denies any history of chronic liver or kidney disease, CT chest did not show any suspicious masses, B12 level was within normal limits. Patient did have significant diarrhea for last several days. No evidence of metabolic acidosis, no evidence of inadequate tissue perfusion #4. Positive blood cultures, Gram stain was positive for gram-positive cocci in chains, follow-up cultures are pending, final culture and sensitivity pending, patient is covered with a combination of Rocephin, Zithromax and vancomycin, ID service is following #5. Pancytopenia, white blood cell count was 3.1, hemoglobin was 11.0, and platelet count was 27 #6. COPD, patient is supposed to wear home oxygen #7. History of tracheostomy at age 2, questionable history of occult cord cancer #8. Chronic and ongoing nicotine dependence, patient carries over [id number] smoking history #9. Morbid obesity #10. Depression Plan The patient was seen and evaluated by Dr. Bryan. She is cleared for discharge from the pulmonary standpoint. She will be discharged on home oxygen. Continue bronchodilators. Antibiotics per infectious disease. Complete her course of Tamiflu. She should follow-up in our office in 2 weeks' time. We'll reevaluate the need for home continued home oxygen. She is encouraged to call sooner with any recurrence of symptoms or other questions or concerns. I, the cosigning physician, performed a history & physical examination of the patient. Lungs sounds scattered rhonchi, end expiratory wheeze.. Maintaining good O2 saturations in the 90s on 2 L nasal cannula. I discussed the assessment and plan of care with my nurse practitioner, Alyson Valladares. I attest to the above note as dictated by her.
[2018-06-14 17:09] LABS: Glucose,Whole Blood 117 mg/dL (75-99)
[2018-06-15] MEDS ORDERED: VANCOMYCIN TROUGH DUE 1 EACH MISC MISCELLANE ONE (05:00)
--- NOTE | 2018-06-17 11:23 | CDI ---
Date: 06/17/2018 11:03:00 AM From: BARBIE Heller; Mariya Ayon, Etcher Apprentice Phone: If you have a question about this query, please contact Mariya Ayon Etcher Apprentice at [phone] between 8am and 5pm. Admit Date: 06/11/2018 4:09:00 PM Patient Name: Sadaf Bright Visit Number: [id number] Discharge Date: 06/14/2018 5:58:00 PM ATTENTION: The Clinical Documentation Specialists (CDI) and [facility] Coding Staff appreciate your assistance in clarifying documentation. Please respond to the clarification below the line at the bottom and electronically sign. The CDI & [facility] Coding staff will review the response and follow-up if needed. Please note: Queries are made part of the Legal Health Record. If you have any questions, please contact the author of this message via ITS. Dr. Frederic Gonzalez The patient presented with shortness of breath and coughing. Sepsis is documented on H&P but it is not clear whether this is ruled in or out at discharge. History/Risk Factors: COPD, smoker, DM, GERD, MVP, pancytopenia Clinical Indicators: Tachycardia, fever, acidotic, WBC 3.3 Lactic acid: 7.6 Blood cultures: Alpha hemolytic strep Vitals signs on admission: temp 102, pulse 126, resp, 36, PB 140/89 Treatment: IV azithromycin , Rocephin, Tamiflu Other: Positive influenza A In your professional opinion, please clarify if these findings signify one of the following conditions, whether the condition is POA, and cause, if known: Condition Sepsis ruled out SIRS, without underlying infectious process Sepsis - confirmed Severe Sepsis Septic Shock Other, please specify Unable to determine MTDD
== END 2018-06-14 17:58 | disposition home health service (06) | DRG 871 ==
LOC: EC 13:39 → 3SCARD 16:09
PROVIDERS: ADMIT Family Medicine; ATTEND Family Medicine
DX: A40.8 Other streptococcal sepsis (principal); J96.21 Acute and chronic respiratory failure with hypoxia; J44.1 Chronic obstructive pulmonary disease with (acute) exacerbation; D61.818 Other pancytopenia; E87.2 Acidosis; Z68.42 Body mass index [BMI] 45.0-49.9, adult; J10.1 Influenza due to other identified influenza virus with other respiratory manifestations; B37.9 Candidiasis, unspecified; E11.9 Type 2 diabetes mellitus without complications; E66.01 Morbid (severe) obesity due to excess calories; E78.5 Hyperlipidemia, unspecified; F17.200 Nicotine dependence, unspecified, uncomplicated; F32.9 Major depressive disorder, single episode, unspecified; I27.21 Secondary pulmonary arterial hypertension; I34.1 Nonrheumatic mitral (valve) prolapse; K21.9 Gastro-esophageal reflux disease without esophagitis; Z85.21 Personal history of malignant neoplasm of larynx; Z90.710 Acquired absence of both cervix and uterus; Z99.81 Dependence on supplemental oxygen; Z79.891 Long term (current) use of opiate analgesic; Z79.51 Long term (current) use of inhaled steroids; Z79.899 Other long term (current) drug therapy; Z88.8 Allergy status to other drugs, medicaments and biological substances; Z91.013 Allergy to seafood; Z96.60 Presence of unspecified orthopedic joint implant; Z71.3 Dietary counseling and surveillance; Z71.6 Tobacco abuse counseling; R19.7 Diarrhea, unspecified
CPT/HCPCS: 36415; 71046; 71260; 80048; 80053; 81001; 82607; 82728; 82747; 82784; 83036; 83605; 83615; 83735; 83883; 83921; 84100; 84165; 85025; 85027; 85045; 85610; 85652; 85730; 86038; 86334; 86431; 86738; 87040; 87086; 87449; 87502; 90935; 93005; 93306; 94640; 96361; 96365; 96366; 96375; 99291

== ENCOUNTER 2018-08-08 07:07 | Day surgery (SDC) | payer MEDICARE, OTHER ==
[2018-08-05 10:07] VITALS: BMI 37.5
[~2018-08-08 07:07] MED LIST: LACTATED RINGERS 1,000 ML IV SCH; LIDOCAINE 1% 20 ML VIAL (10MG/ML) FOR IV START INTRADERMA PRN
[2018-08-08] MEDS ORDERED: LACTATED RINGERS 1,000 ML IV ONE (07:33)
[2018-08-08 07:49] VITALS: TEMP 97.4
[2018-08-08] MEDS ORDERED: PROPOFOL 10 MG/ML 20 ML VIAL IV ONE (08:32)
--- NOTE | 2018-08-08 08:59 | P.PCN ---
Date of Procedure: 08/08/18 Preoperative Diagnosis: Pancytopenia Postoperative Diagnosis: Same Procedure(s) Performed: Bone marrow aspiration and biopsy Anesthesia: MAC Surgeon: Travis Olivier Agriculture Specialist #1: Stated None Pathology: other Condition: stable Disposition: same day Indications for Procedure: Initial pancytopenia and left shift in the setting of influenza. Persistent pancytopenia subsequently Operative Findings: Adequate samples Description of Procedure: The procedure was explained in detail to the patient in the office. He presented to the outpatient endoscopy suite where IV access and informed consent was obtained. She was then placed in the left lateral decubitus position. The area over both posterior iliac crest was cleaned and prepped with chlorhexidine and sterile draping. IV sedation was then initiated. Local anesthesia was admi nistered with Xylocaine to the right posterior iliac crest. A Jamshidi needle was then inserted and bone marrow aspirate and biopsy obtained. The initial biopsy specimen was quite small, as her bone was very soft. Therefore a second pass was made with additional biopsy obtained. On withdrawal of the needle hemostasis was easily achieved. Blood loss was minimal and recovery from sedation was satisfactory. He appeared to have tolerated the procedure well without any obvious immediate complications
[2018-08-08 09:11] LABS: Anisocytosis Moderate; HCT 21.8 % (34.0-46.0); MCH 30.9 pg (25.0-35.0); MCHC 32.3 g/dL (31.0-37.0); MCV 95.7 fL (80.0-100.0); Macrocytosis Slight; Mean Platelet Volume 7.2; RBC 2.28 m/uL (3.80-5.40); RDW 20.5 % (11.5-15.5); WBC 2.2 k/uL (3.8-10.6)
[2018-08-08 09:15] LABS: Platelet Count 127 k/uL (150-450)
[2018-08-08 09:51] LABS: Band Neutrophils % 1 %; Lymphocytes # (M) 1.34 k/uL (1.0-4.8); Metamyelocytes # (M) 0.02 k/uL (0); Metamyelocytes % 1 %; Monocytes # (M) 0.02 k/uL (0-1.0); Myelocytes # (M) 0.02 k/uL (0); Myelocytes % 1 %; Neutrophils % (M) 32 %
[2018-08-08 09:52] LABS: Blast Cells # (M) 0.11 k/uL (0); Nucleated Red Blood Cells 0 /100 WBC (0-0); Total Cells Counted 200
[2018-08-08 09:53] LABS: Poikilocytosis (M) Present; Rouleaux Present
[2018-08-08] MEDS ORDERED: SODIUM CHLORIDE 0.9% 1,000 ML IV ONE (09:53)
[2018-08-08 10:00] VITALS: RESP 18
[2018-08-08 10:12] VITALS: BP 117/71; PULSE 98
== END 2018-08-08 10:43 | disposition home or self-care (01) ==
LOC: OR 07:07
PROVIDERS: ATTEND Internal Medicine Hematology & Oncology
DX: C91.00 Acute lymphoblastic leukemia not having achieved remission (principal); D61.818 Other pancytopenia; R79.89 Other specified abnormal findings of blood chemistry; J44.9 Chronic obstructive pulmonary disease, unspecified; J39.8 Other specified diseases of upper respiratory tract; I77.819 Aortic ectasia, unspecified site; E66.01 Morbid (severe) obesity due to excess calories; Z68.42 Body mass index [BMI] 45.0-49.9, adult; E03.9 Hypothyroidism, unspecified; M41.9 Scoliosis, unspecified; N30.10 Interstitial cystitis (chronic) without hematuria; I34.1 Nonrheumatic mitral (valve) prolapse; K21.9 Gastro-esophageal reflux disease without esophagitis; Z96.653 Presence of artificial knee joint, bilateral; Z99.81 Dependence on supplemental oxygen; Z79.899 Other long term (current) drug therapy; Z87.891 Personal history of nicotine dependence; Z88.8 Allergy status to other drugs, medicaments and biological substances; Z91.013 Allergy to seafood
CPT/HCPCS: 85025; 38222; J2704; 86850; 86900; 86901

== ENCOUNTER 2018-08-23 12:31 | Day surgery (SDC) | payer MEDICARE, OTHER ==
[2018-08-23 13:35] VITALS: PULSE 106; TEMP 98.9
[2018-08-23] MEDS ORDERED: LIDOCAINE 1% INJ 10MG/ML (20 ML MDV) SQ ONE (14:09)
--- NOTE | 2018-08-23 14:55 | IR ---
EXAMINATION TYPE: IR cvc insert >=5 years DATE OF EXAM: 08/23/2018 COMPARISON: NONE CLINICAL HISTORY: Leukemia Needs long-term intravenous access for chemotherapy. PROCEDURE: After informed consent, the skin overlying the left basilic vein was localized with ultrasound and no moon to be compressible and patent. An ultrasound image was obtained and submitted on the patient's c byrne. The overlying skin was prepped and draped and Lidocaine was used for local anesthesia. A skin mic was made with a scalpel. Access was gained to the vein under ultrasound guidance with a 21 gau ge needle and a 0.018 inch wire was advanced. Access site was dilated with Peel-Away sheath and cath eter tailored to the appropriate length and advanced such that the distal tip is at the cavoatrial ju nction. Spot image was obtained verifying placement. Catheter was fixed to the skin and a sterile d ressing was placed following hemostasis. Catheter was aspirated and flushed with saline. Patient wa s discharged in stable condition without complication. Maximal barrier technique is utilized. Ultras ound image is documented on the chart. Ultrasound used with sterile technique. Fluoro time and fluoroscopic images submitted to document procedure: 0.9 minutes fluoroscopy time, 15 0 intraoperative C-arm images document the procedure IMPRESSION: STATUS POST ULTRASOUND AND FLUOROSCOPIC GUIDED PICC LINE PLACEMENT, READY FOR USE. THIS PROCEDURE WAS PERFORMED BY THE UNDERSIGNED.
[2018-08-23 15:56] VITALS: BP 134/79; RESP 22
== END 2018-08-23 14:43 | disposition home or self-care (01) ==
LOC: CATHCVL 12:31
PROVIDERS: ATTEND Radiology Diagnostic Radiology
DX: C91.00 Acute lymphoblastic leukemia not having achieved remission (principal); J44.9 Chronic obstructive pulmonary disease, unspecified; I87.2 Venous insufficiency (chronic) (peripheral); I77.819 Aortic ectasia, unspecified site; E89.0 Postprocedural hypothyroidism; Z96.653 Presence of artificial knee joint, bilateral; Z87.891 Personal history of nicotine dependence; Z88.8 Allergy status to other drugs, medicaments and biological substances; Z79.899 Other long term (current) drug therapy; Z79.51 Long term (current) use of inhaled steroids
CPT/HCPCS: 36573; C1751; C1769; J2001

== ENCOUNTER 2018-09-25 18:33 | Emergency (ER) | payer MEDICARE, OTHER ==
[2018-09-25 20:14] LABS: Anisocytosis Moderate; HCT 20.8 % (34.0-46.0); Hypochromasia Slight; MCH 30.5 pg (25.0-35.0); MCV 95.3 fL (80.0-100.0); Macrocytosis Moderate; Platelet Count 114 k/uL (150-450); RBC 2.18 m/uL (3.80-5.40); RDW 23.7 % (11.5-15.5)
[2018-09-25 20:21] LABS: HGB 6.7 gm/dL (11.4-16.0)
[2018-09-25 20:22] LABS: INR 2.1 (<1.2); Partial Thromboplastin Time 28.9 sec (22.0-30.0); Prothrombin Time 20.9 sec (9.0-12.0)
[2018-09-25 20:25] LABS: WBC 0.7 k/uL (3.8-10.6)
[2018-09-25 20:36] LABS: African American GFR (CKD) >90 (>60 ml/min/1.73 sqM); Anion Gap 8 mmol/L; Blood Urea Nitrogen 5 mg/dL (7-17); Calcium 7.7 mg/dL (8.4-10.2); Carbon Dioxide 26 mmol/L (22-30); Chloride 97 mmol/L (98-107); Glucose 112 mg/dL (74-99); Potassium 3.8 mmol/L (3.5-5.1); Sodium 131 mmol/L (137-145)
[2018-09-25 21:05] LABS: Poikilocytosis (M) Present; Polychromasia Present
--- NOTE | 2018-09-26 00:31 | ED ---
Recheck HPI - General Chief Complaint: Recheck/Abnormal Lab/Rx Stated Complaint: needs blood transfusion Time Seen by Provider: 09/25/18 19:15 Source: patient Mode of arrival: wheelchair Limitations: no limitations - History of Present Illness Initial Comments: Patient is a 62-year-old female who presents to the emergency department with reported abnormal lab results. She states that she was called by Dr. Olivier office and was told that her hemoglobin was low. 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 She states that as of recently it seems to be once per week. She is currently under the care of an oncologist at [facility] as well. This is where she receives her chemo. Her next chemo treatment is scheduled for Sunday. She admits to generalized weakness and palpitations. Denies any chest pain or shortness of breath. Denies any diarrhea, constipation, melanotic stools or hematochezia. Denies any changes in her urination to include dysuria, hematuria, or difficulty voiding. Denies any fevers, cough, chills, rigors or hemoptysis. She is presenting to the emergency room for transfusion of irradiated cells. - Related Data Home Medications Medication Instructions Recorded Confirmed Allopurinol [Zyloprim] 300 mg PO BID 08/23/18 09/25/18 Acyclovir 400 mg PO BID 09/25/18 09/25/18 Atenolol [Tenormin] 50 mg PO DAILY 09/25/18 09/25/18 Budesonide/Formoterol Fumarate 2 puff INHALATION BID 09/25/18 09/25/18 [Symbicort 160-4.5 Mcg Inhaler] Cefuroxime Axetil [Ceftin] 500 mg PO BID 09/25/18 09/25/18 Fluconazole [Diflucan] 100 mg PO DAILY 09/25/18 09/25/18 Levofloxacin [Levaquin] 500 mg PO DAILY 09/25/18 09/25/18 Loperamide [Imodium] 2 mg PO TID 09/25/18 09/25/18 Potassium Chloride Oral Liquid 20 meq PO QID 09/25/18 09/25/18 Prochlorperazine [Compazine] 10 mg PO Q6H PRN 09/25/18 09/25/18 Vancomycin HCl [Vancocin HCl] 125 mg PO Q6H 09/25/18 09/25/18 Voriconazole 200 mg PO Q12H 09/25/18 09/25/18 Allergies Allergy/AdvReac Type Severity Reaction Status Date / Time No Known Allergies Allergy Unverified 09/25/18 19:01 Review of Systems ROS Statement: Those systems with pertinent positive or pertinent negative responses have been documented in the HPI. ROS Other: All systems not noted in ROS Statement are negative. Past Medical History Past Medical History: Cancer, COPD, GERD/Reflux, Hyperlipidemia, Mitral Valve Prolapse (MVP), Osteoarthritis (OA) Additional Past Medical History / Comment(s): Continous O2 at 2L per nasal cannula. Hx left eye muscle cancer, diverticulitis. History of Any Multi-Drug Resistant Organisms: None Reported Past Surgical History: Section, Cholecystectomy, Hysterectomy, Joint Replacement Additional Past Surgical History / Comment(s): Hx tracheostomy, 4 eye surgeries for cancer ( from [place]),. PAIN CLINIC PROCEDURES, bilateral knee replacements. Past Anesthesia/Blood Transfusion Reactions: Previous Problems w/ Anesthesia, Postoperative Nausea & Vomiting (PONV) Additional Past Anesthesia/Blood Transfusion Reaction / Comment(s): Anger issue post sedation. Past Psychological History: Depression Smoking Status: Former smoker - Past Family History Mother Additional Family Medical History / Comment(s): from [facility]. General Exam Limitations: no limitations General appearance: alert, in no apparent distress Head exam: Present: atraumatic, normocephalic, normal inspection Eye exam: Present: normal appearance, PERRL, EOMI. Absent: scleral icterus, conjunctival injection, periorbital swelling ENT exam: Present: normal exam, mucous membranes moist Neck exam: Present: normal inspection. Absent: tenderness, meningismus, lymphadenopathy Respiratory exam: Present: normal lung sounds bilaterally. Absent: respiratory distress, wheezes, rales, rhonchi, stridor Cardiovascular Exam: Present: normal rhythm, tachycardia, normal heart sounds. Absent: systolic murmur, diastolic murmur, rubs, gallop, clicks GI/Abdominal exam: Present: soft, normal bowel sounds. Absent: distended, tenderness, guarding, rebound, rigid Extremities exam: Present: normal inspection, full ROM, normal capillary refill, pedal edema. Absent: tenderness, joint swelling, calf tenderness Back exam: Present: normal inspection Neurological exam: Present: alert, oriented X3, CN II-XII intact Psychiatric exam: Present: normal affect, normal mood Skin exam: Present: warm, dry, intact, pallor. Absent: rash Course Vital Signs 09/25/18 09/26/18 09/26/18 18:36 02:45 03:23 Temperature 98.4 F 98.3 F 100.2 F H Pulse Rate 112 H 107 H 107 H Respiratory 20 16 18 Rate Blood Pressure 100/63 108/77 109/76 O2 Sat by Pulse 94 L 97 92 L Oximetry 09/26/18 09/26/18 09/26/18 03:36 04:06 04:35 Temperature 100.2 F H 99.2 F 98.8 F Pulse Rate 106 H 103 H 99 Respiratory 18 16 16 Rate Blood Pressure 119/72 123/73 117/69 O2 Sat by Pulse 92 L 94 L 96 Oximetry 09/26/18 09/26/18 09/26/18 05:11 07:04 07:20 Temperature 99.2 F 98.0 F 99.2 F Pulse Rate 98 96 102 H Respiratory 16 16 16 Rate Blood Pressure 106/59 116/69 110/65 O2 Sat by Pulse 95 94 L 96 Oximetry 09/26/18 09/26/18 09/26/18 07:30 08:00 08:12 Temperature 99.2 F 99.2 F 99.2 F Pulse Rate 104 H 101 H 101 H Respiratory 16 16 16 Rate Blood Pressure 110/67 114/65 108/67 O2 Sat by Pulse 93 L 95 Oximetry 09/26/18 09:19 Temperature 99.7 F H Pulse Rate 112 H Respiratory Rate Blood Pressure 118/77 O2 Sat by Pulse 94 L Oximetry Medical Decision Making - Medical Decision Making The patient was placed into room 11. She is hooked up to continuous pulse ox and cardiac monitoring. I did obtain laboratory studies on the patient. It does demonstrate a white blood cell count of 0.7 and hemoglobin of 6.7. Because of this I did type and screen the patient. I called and discussed the case with Dr. Ruggiero who is partners with Dr. Olivier. He recommended transfusion of 2 units of irradiated blood. These were ordered and are pending transport to the hospital. Dr. Ruggiero does state that the patient can be discharged after her transfusion. I did request that Dr. Ruggiero keep the patient in the hospital overnight however he did refuse admission. I offered to transfer to [facility] as the patient's other oncologist is located there. The patient is refusing transfer. She states that she will receive her transfusion and feels comfortable going home afterwards. The patient was transfused 2 units of PRBC and was then discharged home in stable condition. - Differential Diagnosis acute blast crisis, anemia, ALL, chemo side effect - Lab Data Result diagrams: 09/25/18 19:20 09/25/18 19:20 Lab Results 09/25/18 09/25/18 09/25/18 Range/Units 19:20 19:20 19:20 WBC 0.7 L* (3.8-10.6) k/uL RBC 2.18 L (3.80-5.40) m/uL Hgb 6.7 L* (11.4-16.0) gm/dL Hct 20.8 L (34.0-46.0) % MCV 95.3 (80.0-100.0) fL MCH 30.5 (25.0-35.0) pg MCHC 32.0 (31.0-37.0) g/dL RDW 23.7 H (11.5-15.5) % Plt Count 114 L (150-450) k/uL Differential Comment Manual Slide Review Performed Polychromasia Present Hypochromasia Slight Poikilocytosis (manual Present Anisocytosis Moderate Macrocytosis Moderate PT (9.0-12.0) sec INR (<1.2) APTT (22.0-30.0) sec Sodium 131 L (137-145) mmol/L Potassium 3.8 (3.5-5.1) mmol/L Chloride 97 L (98-107) mmol/L Carbon Dioxide 26 (22-30) mmol/L Anion Gap 8 mmol/L BUN 5 L (7-17) mg/dL Creatinine 0.36 L (0.52-1.04) mg/dL Est GFR (CKD-EPI)AfAm >90 (>60 ml/min/1.73 sqM) Est GFR (CKD-EPI)NonAf >90 (>60 ml/min/1.73 sqM) Glucose 112 H (74-99) mg/dL Calcium 7.7 L (8.4-10.2) mg/dL Blood Type O Positive Blood Type Recheck No Antibody Screen NEGATIVE Crossmatch See Detail Spec Expiration Date 09/28/2018 - 231909/25/18 Range/Units 19:20 WBC (3.8-10.6) k/uL RBC (3.80-5.40) m/uL Hgb (11.4-16.0) gm/dL Hct (34.0-46.0) % MCV (80.0-100.0) fL MCH (25.0-35.0) pg MCHC (31.0-37.0) g/dL RDW (11.5-15.5) % Plt Count (150-450) k/uL Differential Comment Manual Slide Review Polychromasia Hypochromasia Poikilocytosis (manual Anisocytosis Macrocytosis PT 20.9 H (9.0-12.0) sec INR 2.1 H (<1.2) APTT 28.9 (22.0-30.0) sec Sodium (137-145) mmol/L Potassium (3.5-5.1) mmol/L Chloride (98-107) mmol/L Carbon Dioxide (22-30) mmol/L Anion Gap mmol/L BUN (7-17) mg/dL Creatinine (0.52-1.04) mg/dL Est GFR (CKD-EPI)AfAm (>60 ml/min/1.73 sqM) Est GFR (CKD-EPI)NonAf (>60 ml/min/1.73 sqM) Glucose (74-99) mg/dL Calcium (8.4-10.2) mg/dL Blood Type Blood Type Recheck Antibody Screen Crossmatch Spec Expiration Date Disposition Clinical Impression: Anemia, ALL (acute lymphoblastic leukemia) Disposition: HOME SELF-CARE Condition: Stable Instructions (If sedation given, give patient instructions): Blood Transfusion (DC) Additional Instructions: Please follow-up with your oncologist in 1-2 days. Return to the emergency department for any new or worsening symptoms Is patient prescribed a controlled substance at d/c from ED?: No Referrals: Davie Elam, DO [Primary Care Provider] - 1-2 days
[2018-09-26 04:08] VITALS: RESP 16
[2018-09-26 09:20] VITALS: BP 118/77; PULSE 112; TEMP 99.7
== END 2018-09-26 09:30 | disposition home or self-care (01) ==
LOC: EC 18:33
DX: C91.00 Acute lymphoblastic leukemia not having achieved remission (principal); D64.9 Anemia, unspecified; R00.0 Tachycardia, unspecified; J44.9 Chronic obstructive pulmonary disease, unspecified; M19.90 Unspecified osteoarthritis, unspecified site; Z87.891 Personal history of nicotine dependence; Z79.51 Long term (current) use of inhaled steroids; Z79.899 Other long term (current) drug therapy; Z85.840 Personal history of malignant neoplasm of eye; Z92.21 Personal history of antineoplastic chemotherapy; Z96.653 Presence of artificial knee joint, bilateral; Z99.81 Dependence on supplemental oxygen; Z98.890 Other specified postprocedural states; Z82.49 Family history of ischemic heart disease and other diseases of the circulatory system; Z53.20 Procedure and treatment not carried out because of patient's decision for unspecified reasons
CPT/HCPCS: 99284 ×2; 36415; 86900; 86901; 80048; 85025; 85610; 85730; 86850; 86920; P9040